=== PATIENT | male | born 1950 | race Asian ===

== ENCOUNTER 2025-02-16 15:08 | Inpatient (IN) | payer MEDICARE, SELFPAY ==
[2025-02-16] VITALS (38 sets, daily range): BP systolic 86–130; BP diastolic 52–78; BMI 22.3
--- NOTE | 2025-02-16 11:33 | ED.GENMED ---
History of Present Illness
<Brett Rush PA-C - Last Filed: 02/16/25 16:27>
General
Chief Complaint: Chest Pain
Time Seen by Provider: 02/16/25 11:15
History of Present Illness
History of Present Illness:
74-year-old male with history of hypertension, hyperlipidemia, and insulin-dependent diabetes presents to the emergency department for evaluation of substernal chest pressure that began last night after going for a run. Pain has not relented and
even worsened this morning. Not pleuritic and not necessarily worse with exertion today. No prior history of similar. Denies any fevers or chills.
Review of Systems
<Brett Rush PA-C - Last Filed: 02/16/25 16:27>
Review of Systems
Allergies reviewed?: Yes
All Other Systems: ROS reviewed and negative except as documented in HPI and ROS
Phy Exam
<Brett Rush PA-C - Last Filed: 02/16/25 16:27>
Physical Exam
Physical Exam:
GEN: Well appearing, NAD, WDWN
HEENT: Oral mucosa moist, no scleral icterus
Cardiac: Regular rate and rhythm, no murmur
Lung: No respiratory distress, no tachypnea
MSK: No gross deformity or injuries
Skin: Good color, no pallor or jaundice, no rashes
Neuro: AO x3, moves all extremities freely
Psych: Calm, cooperative
Scores
<Brett Rush PA-C - Last Filed: 02/16/25 16:27>
Heart Score for Chest Pain Patients
STEMI patient?: No
History: Highly Suspicious
ECG: Significant ST-Depression
Age: >/= 65 years
Risk Factors: >/= 3 Risk Factors or History of CAD
Troponin: >/= 3 x Normal Limit
Heart Score for Chest Pain Patients: 10
Heart Score Risk: 72.7 % MACE over next 6 weeks
Course
<Brett Rush PA-C - Last Filed: 02/16/25 16:27>
Orders/Labs/Results
Orders:
Orders
02/16/25 Breakfast
NPO
Allow oral meds: Yes
Allow clear liquids: No
02/16/25 09:50
EKG [Electrocardiogram (*1)] Urgent
Reason for Study: Chest Pain
EKG- Treatment ONCE
02/16/25 11:25
Electrocardiogram (*1) Urgent
Reason for Study: Chest Pain
EKG- Treatment ONCE
02/16/25 11:26
CR Chest Portable - 1 View Urgent
Comment:
Reason For Exam: chest pain
Reason Study Needs to be Portable: Other
02/16/25 11:30
Aspirin Chewable [Low Strength Aspirin] 324 mg PO NOW STA
02/16/25 11:35
Nitroglycerin Sublingual [Nitrostat (Sublingual)] 0.4 mg SL [id number] PRN
02/16/25 11:41
Heparin 4,000 units IV NOW STA
Pharmacy Request to Place See Dose Instructions PO NOW STA
Discontinue all Active Warfarin orders?: Yes
02/16/25 11:[address] Non Medication Order As Directed
Physician Order: PTT 6 hours after initial start of Heparin infusion
Above order entered?: Yes
02/16/25 11:43
Complete Blood Count/With Diff Urgent
Comprehensive Metabolic Panel Urgent
PTT Urgent
Comment: Obtain baseline before beginning heparin infusion if not already collected
Troponin I Urgent
02/16/25 11:45
Heparin 79092 Units/250 ml 25,000 units in 250 ml IV PER PROTOCOL
Weight to be used for heparin protocol in kilograms (kg):: 70.4
Protocol:: Cardiac Tx/Acute Coronary
PTT Goal Range to be used:: PTT 73 to 111 seconds
Order type:: Initial
INITIAL Infusion Dose (UNITS/KG/hr) & then follow protocol:: 12 units/kg/hr
Infusion Dose in UNITS/hr & then follow protocol (UNITS/hr):: 850
INFUSION RATE in mL/hr & then follow protocol (mL/hr):: 8.5
PTT less than or equal to 64 seconds:: Increase rate by 200 units/hr (+ 2 mL/hr)
PTT 64.1 to 72.9 seconds:: Increase rate by 100 units/hr (+ 1 mL/hr)
PTT 73 to 111 seconds:: Target Range. No change in rate.
PTT 111.1 to 130.9 seconds:: Decrease rate by 100 units/hr (- 1 mL/hr)
PTT 131 to 199.9 seconds:: HOLD for 1 hr. Then decrease rate by 200 units/hr (- 2 mL/hr)
PTT greater than or equal to 200 seconds:: HOLD for 2 hrs & Notify Provider. Then decrease by 200 units/hr (-
2 mL/hr)
Lab follow-up:: Each change, PTT q6h until 2 consecutive are therapeutic. Then PTT
daily.
02/16/25 12:[address] See Dose Instructions IV DIRECTED
02/16/25 12:31
CARDIOLOGY CONSULT Urgent
Consulting Provider: Joao Ross
Was physician already notified: Yes
Reason for consult: chest pain
02/16/25 12:35
Admit/Transfer Patient As Directed
Co-Sign Provider:
Level of Care: Inpatient admission
Assign to:: IVU
Physician / Group: jaison lane
Diagnosis: chest pain
Reason for Hospitalization: chest pain
Expected length of stay greater than two midnights?: Yes
ELOS- Estimated Length of Stay in days: 3
I certify the patient meets the requirements for IP care: Yes
02/16/25 12:36
PRN Pain Medication Management As Directed
May give lesser potent ordered pain med per pt: Yes
preference::
Protocol:: Medication orders for pain may be administered in a
manner that supports deferring to patient preference
when the pt is:
- Requesting an ordered lesser potent pain medication.
Least to most potent pain medications are defined
as: acetaminophen < NSAID < tramadol < opioids
(morphine, oxycodone, hydromorphone).
- Requesting a lesser dose of the same medication IF
ORDERED.
- Requesting a less intrusive route of administration
if both routes are prescribed by the provider (PO <
IV).
02/16/25 12:38
Code Status As Directed
Resuscitation Status: Full Code
02/16/25 13:10
Verapamil Injectable [Isoptin/Verapamil Injection] 5 mg .ROUTE .STK-MED ONE
02/16/25 13:11
Heparin 1000 Units/500 ml [Heparin] 1,000 units in 500 ml .ROUTE .STK-MED
Heparin Sodium,Porcine/Ns/Pf [Heparin 2000 Units/1000 ml] 2,000 unit in 1,000 ml .ROUTE .STK-MED
Lidocaine HCl/Pf [Xylocaine-Mpf 1% Vial] 50 mg .ROUTE .STK-MED ONE
Nitroglycerin [Tridil] 1,500 mcg .ROUTE .STK-MED ONE
02/16/25 13:38
Fentanyl Citrate/Pf [Sublimaze] 100 mcg .ROUTE .STK-MED ONE
Heparin 10,000 units .ROUTE .STK-MED ONE
Midazolam HCl [Versed] 2 mg .ROUTE .STK-MED ONE
02/16/25 14:29
Phenylephrine HCl/0.9% NaCl [Ayush-Synephrine] 1,000 mcg .ROUTE .STK-MED ONE
02/16/25 14:36
CT Chest W/o Iv Contrast Routine
Comment:
Reason For Exam: pre-operative cardiothoracic surgery
Nitroglycerin 100 mg/250 ml [Nitroglycerin Premix] 100 mg in 250 ml .ROUTE .STK-MED
Blood Pressure Bilateral Upper Extremities As Directed
Instructions:: If not already done obtain and record bilateral upper extremity bp.
Notify physician/PA/MANAGER THERAPY:: notify cardiac surgery PA, MANAGER THERAPY, or MD of a 20 mmHg or greater different.
Blood Pressure LEFT Upper Extremity ONCE
Blood Pressure RIGHT Upper Extremity ONCE
US Cerebrovascular Routine
Comment: surgery is scheduled on wednesday at 1130.
Reason For Exam: pre-operative cardiothoracic surgery
02/16/25 14:37
ANESTHESIA CONSULT Routine
Consulting Provider: Leif Sun
Consult for:: Other reason
Was physician already notified: Yes
Reason for consult: pending cardiothoracic surgery
02/16/25 14:49
Cardiothoracic Surgery Consult Routine
Consulting Provider: William Salter
Was physician already notified: Yes
Reason for Consult: CABG
Acetaminophen [Tylenol] 650 mg PO Q4HPRN PRN
Activity As Directed
Activity Level: Out of Bed- Ad Maite
Activity Frequency: Ad Maite
[employer] Procedure As Directed
Cardiac Cath Procedure: cardiac catheterization
Notify MD As Directed
Notify physician if: immediately for chest pain or bleeding from access site(s)
Site Checks As Directed
Check access site for bleeding/hematoma: Yes
Comment: on arrival, Q15min x4, Q30min x2, Q1 hr x2, Q2 hr x2, Q4 hr or per
protocol
Vascular Checks As Directed
Location: distal to access site - pulse check
Frequency: Other
Comment: on arrival, Q15min x4, Q30min x2, Q1 hr x2, Q2 hr x2, Q4 hr or per protocol
Vital Signs As Directed
Frequency: Other
Additional Instructions:: on arrival, Q15min x4, Q30min x2, Q1 hr x2, Q2 hr x2, then Q4 hr or per unit
protocol
02/16/25 14:59
Radial Artery Hemostasis Method As Directed
Instructions:: 3 mL out at 2 hour posts placement of band
3 mL out at 2 1/2 hours post placement of band
3 mL out at 3 hours post placement of band
Off at 3 1/2 hours post placement of band
If any oozing or hemotoma occurs:: re-inflate band and call provider
02/16/25 Dinner
Cholesterol Lowering
At Your Request: Full Participation
Does patient need a safe tray?: No
Cholesterol Lowering: Sodium, 2 Gram
0.9% Sodium Chloride 1000 ml [Nss] 1,000 ml IV PER PROTOCOL
Infusion rate in mL/kg/hr:: 1.5
Infusion rate in mL/hr:: 106
Duration of infusion (hours):: 3
Nitroglycerin 100 mg/250 ml [Nitroglycerin Premix] 100 mg in 250 ml IV PER PROTOCOL
Initial dose in mcg/min, then titrate:: 10
Titrate to keep:: Chest Pain Free
Titrate by mcg/min:: 5 mcg/min, may increase by 10 mcg/min if dose > 20 mcg/min
Frequency of titrations (minutes):: every 3-5 minutes
Maximum dose in mcg/min:: 200
Begin to taper infusion when:: Remained at goal for 2hrs
Taper by mcg/min:: 5 mcg/min
Frequency of taper (minutes) if patient maintains goal:: 30
Taper to off?: Yes
If infusion off & no longer maintaining goal:: Contact Provider
02/16/25 15:08
Electrocardiogram (*1) Q6H
Reason for Study: Chest Pain
Comment: at admission and Q3H for total of 3, to be done with each troponin
Troponin I Q3H
Comment: at admit & Q3H for 3 total including ED draws, obtain ECG with each level
Dextrose 50%-Water [Dextrose 50% Syringe] 12.5 grams IV [id number] PRN
Glucagon [GlucaGen] 1 mg IM PRN PRN
02/16/25 15:08
Glycohemoglobin (HgbA1c) Routine
Heparin Protocol- PTT Orders As Directed
PTT per Heparin protocol: -Obtain CBC and baseline PTT - if not already collected.
-Obtain PTT 6 hours from start of infusion. Then, every 6 hours until 2 consecutive
PTT's are therapeutic. Then, PTT Daily.
-With each rate change, obtain PTT every 6 hours until 2 consecutive PTT's are
therapeutic. Then, PTT Daily.
Activity As Directed
Activity Level: As Tolerated
Bedside Glucose Monitoring As Directed
Frequency: AC&HS
Additional Instructions:: Change to q6h if pt on TPN, tube feeding or not eating
INT (Intravenous Needle Therapy) As Directed
Comment: maintain peripheral IV access
Intake/ Output As Directed
Frequency: Per unit guidelines
Notify MD As Directed
Notify physician if: PTT is greater than or equal to 200.
Vital Signs As Directed
Frequency: q4h
Weight As Directed
Frequency: Daily
02/16/25 16:00
Heparin 72053 Units/250 ml 25,000 units in 250 ml IV PER PROTOCOL
Weight to be used for heparin protocol in kilograms (kg):: 70.4
Protocol:: Cardiac Tx/Acute Coronary
PTT Goal Range to be used:: PTT 73 to 111 seconds
Order type:: Continue/Resume
Maintain current infusion rate & then follow protocol:: Yes
Additional Instructions:: NO BOLUS at 1600
PTT less than or equal to 64 seconds:: Increase rate by 200 units/hr (+ 2 mL/hr)
PTT 64.1 to 72.9 seconds:: Increase rate by 100 units/hr (+ 1 mL/hr)
PTT 73 to 111 seconds:: Target Range. No change in rate.
PTT 111.1 to 130.9 seconds:: Decrease rate by 100 units/hr (- 1 mL/hr)
PTT 131 to 199.9 seconds:: HOLD for 1 hr. Then decrease rate by 200 units/hr (- 2 mL/hr)
PTT greater than or equal to 200 seconds:: HOLD for 2 hrs & Notify Provider. Then decrease by 200 units/hr (-
2 mL/hr)
Lab follow-up:: Each change, PTT q6h until 2 consecutive are therapeutic. Then PTT
daily.
icosapent ethyl [Vascepa] 1 grams PO TID
02/16/25 16:30
Insulin Aspart Corrective Low [Novolog Flexpen-Low Resistance] See Protocol SC AC
02/16/25 18:00
Rosuvastatin Calcium [Crestor] 20 mg PO QPM
02/16/25 18:08
Troponin I Q3H
Comment: at admit & Q3H for 3 total including ED draws, obtain ECG with each level
02/16/25 20:00
Docusate W/Senna [Senokot-S] 1 tablet PO BID
cycloSPORINE [Restasis 0.05% Ophthalmic Emulsion] 1 drops BOTH EYES BID
02/16/25 21:08
Electrocardiogram (*1) Q6H
Reason for Study: Chest Pain
Comment: at admission and Q3H for total of 3, to be done with each troponin
02/16/25 22:00
insulin glargine U-300 conc [Toujeo SoloStar U-300 Insulin] 20 unit SC HS
02/17/25 03:08
Electrocardiogram (*1) Q6H
Reason for Study: Chest Pain
Comment: at admission and Q3H for total of 3, to be done with each troponin
02/17/25 06:00
Basic Metabolic Panel IN AM
Cardiovascular Evaluation IN AM
Complete Blood Count/No Diff IN AM
Glycohemoglobin (HgbA1c) IN AM
Glycohemoglobin (HgbA1c) IN AM
Qezky-Ikwr-Eipoitz IN AM
PTT IN AM
Prothrombin Time IN AM
02/17/25 08:00
Aspirin Chewable [Low Strength Aspirin] 81 mg PO DAILY
Duloxetine Delayed Release [Cymbalta Delayed Release] 30 mg PO DAILY
Famotidine [Pepcid] 20 mg PO DAILY
Ferrous Sulfate [Feosol] 325 mg PO DAILY
Magnesium l-Lactate [Mag-Tab Sr] 84 mg PO DAILY
Pantoprazole [Protonix] 40 mg PO DAILY
finasteride 1 mg PO DAILY
02/18/25 06:00
Type+Screen IN AM
Complete Blood Count/No Diff Q2D
Comment: notify provider: Platelet count < 130,000 or decrease by 50% from baseline
02/20/25 06:00
Complete Blood Count/No Diff Q2D
Comment: notify provider: Platelet count < 130,000 or decrease by 50% from baseline
02/22/25 06:00
Complete Blood Count/No Diff Q2D
Comment: notify provider: Platelet count < 130,000 or decrease by 50% from baseline
02/24/25 06:00
Complete Blood Count/No Diff Q2D
Comment: notify provider: Platelet count < 130,000 or decrease by 50% from baseline
02/26/25 06:00
Complete Blood Count/No Diff Q2D
Comment: notify provider: Platelet count < 130,000 or decrease by 50% from baseline
02/28/25 06:00
Complete Blood Count/No Diff Q2D
Comment: notify provider: Platelet count < 130,000 or decrease by 50% from baseline
03/02/25 06:00
Complete Blood Count/No Diff Q2D
Comment: notify provider: Platelet count < 130,000 or decrease by 50% from baseline
03/04/25 06:00
Complete Blood Count/No Diff Q2D
Comment: notify provider: Platelet count < 130,000 or decrease by 50% from baseline
Abnormal Lab Results
02/16/25
11:43
RBC 3.88 L 10^6/uL
(4.70-6.10)
Hgb 12.4 L g/dL
(13.0-18.0)
Hct 36.0 L %
(39.0-52.0)
MCH 32.0 H pg
(27.0-31.0)
Absolute Neuts (auto) 6.7 H 10^3/uL
(1.4-6.5)
Absolute Lymphs (auto) 0.7 L 10^3/uL
(1.2-3.4)
Neutrophils % 86.0 H %
(42.2-75.2)
Lymphocytes % 9.3 L %
(20.5-51.1)
Creatinine 0.6 L mg/dL
(0.7-1.3)
Glucose 162 H mg/dl
(70-99)
Alkaline Phosphatase 35 L U/L
(38-126)
Troponin I 0.600 H* ng/ml
02/16/25 11:43
02/16/25 11:43
Vital Signs
Initial and Last Documented VS:
Initial Vital Signs
Temp Pulse Resp BP Pulse Ox
97.7 F 55 20 117/56 99
02/16/25 09:59 02/16/25 09:59 02/16/25 09:59 02/16/25 09:59 02/16/25 09:59
Last Documented Vital Signs
Temp Pulse Resp BP Pulse Ox
97.9 F 62 16 109/65 100
02/16/25 15:19 02/16/25 13:00 02/16/25 15:19 02/16/25 13:00 02/16/25 15:19
<Philip Calvillo, DO - Last Filed: 02/16/25 11:54>
Orders/Labs/Results
Orders:
Orders
02/16/25 Breakfast
NPO
Allow oral meds: Yes
Allow clear liquids: No
02/16/25 09:50
EKG [Electrocardiogram (*1)] Urgent
Reason for Study: Chest Pain
EKG- Treatment ONCE
02/16/25 11:25
Electrocardiogram (*1) Urgent
Reason for Study: Chest Pain
EKG- Treatment ONCE
02/16/25 11:26
CR Chest Portable - 1 View Urgent
Comment:
Reason For Exam: chest pain
Reason Study Needs to be Portable: Other
02/16/25 11:30
Aspirin Chewable [Low Strength Aspirin] 324 mg PO NOW STA
02/16/25 11:35
Nitroglycerin Sublingual [Nitrostat (Sublingual)] 0.4 mg SL [id number] PRN
02/16/25 11:41
Heparin 4,000 units IV NOW STA
Pharmacy Request to Place See Dose Instructions PO NOW STA
Discontinue all Active Warfarin orders?: Yes
02/16/25 11:[address] Non Medication Order As Directed
Physician Order: PTT 6 hours after initial start of Heparin infusion
Above order entered?: Yes
02/16/25 11:43
Complete Blood Count/With Diff Urgent
Comprehensive Metabolic Panel Urgent
PTT Urgent
Comment: Obtain baseline before beginning heparin infusion if not already collected
Troponin I Urgent
02/16/25 11:45
Heparin 73826 Units/250 ml 25,000 units in 250 ml IV PER PROTOCOL
Weight to be used for heparin protocol in kilograms (kg):: 70.4
Protocol:: Cardiac Tx/Acute Coronary
PTT Goal Range to be used:: PTT 73 to 111 seconds
Order type:: Initial
INITIAL Infusion Dose (UNITS/KG/hr) & then follow protocol:: 12 units/kg/hr
Infusion Dose in UNITS/hr & then follow protocol (UNITS/hr):: 850
INFUSION RATE in mL/hr & then follow protocol (mL/hr):: 8.5
PTT less than or equal to 64 seconds:: Increase rate by 200 units/hr (+ 2 mL/hr)
PTT 64.1 to 72.9 seconds:: Increase rate by 100 units/hr (+ 1 mL/hr)
PTT 73 to 111 seconds:: Target Range. No change in rate.
PTT 111.1 to 130.9 seconds:: Decrease rate by 100 units/hr (- 1 mL/hr)
PTT 131 to 199.9 seconds:: HOLD for 1 hr. Then decrease rate by 200 units/hr (- 2 mL/hr)
PTT greater than or equal to 200 seconds:: HOLD for 2 hrs & Notify Provider. Then decrease by 200 units/hr (-
2 mL/hr)
Lab follow-up:: Each change, PTT q6h until 2 consecutive are therapeutic. Then PTT
daily.
02/16/25 12:[address] See Dose Instructions IV DIRECTED
02/16/25 12:31
CARDIOLOGY CONSULT Urgent
Consulting Provider: Joao Ross
Was physician already notified: Yes
Reason for consult: chest pain
02/16/25 12:35
Admit/Transfer Patient As Directed
Co-Sign Provider:
Level of Care: Inpatient admission
Assign to:: IVU
Physician / Group: jaison lane
Diagnosis: chest pain
Reason for Hospitalization: chest pain
Expected length of stay greater than two midnights?: Yes
ELOS- Estimated Length of Stay in days: 3
I certify the patient meets the requirements for IP care: Yes
02/16/25 12:36
PRN Pain Medication Management As Directed
May give lesser potent ordered pain med per pt: Yes
preference::
Protocol:: Medication orders for pain may be administered in a
manner that supports deferring to patient preference
when the pt is:
- Requesting an ordered lesser potent pain medication.
Least to most potent pain medications are defined
as: acetaminophen < NSAID < tramadol < opioids
(morphine, oxycodone, hydromorphone).
- Requesting a lesser dose of the same medication IF
ORDERED.
- Requesting a less intrusive route of administration
if both routes are prescribed by the provider (PO <
IV).
02/16/25 12:38
Code Status As Directed
Resuscitation Status: Full Code
02/16/25 13:10
Verapamil Injectable [Isoptin/Verapamil Injection] 5 mg .ROUTE .STK-MED ONE
02/16/25 13:11
Heparin 1000 Units/500 ml [Heparin] 1,000 units in 500 ml .ROUTE .STK-MED
Heparin Sodium,Porcine/Ns/Pf [Heparin 2000 Units/1000 ml] 2,000 unit in 1,000 ml .ROUTE .STK-MED
Lidocaine HCl/Pf [Xylocaine-Mpf 1% Vial] 50 mg .ROUTE .STK-MED ONE
Nitroglycerin [Tridil] 1,500 mcg .ROUTE .STK-MED ONE
02/16/25 13:38
Fentanyl Citrate/Pf [Sublimaze] 100 mcg .ROUTE .STK-MED ONE
Heparin 10,000 units .ROUTE .STK-MED ONE
Midazolam HCl [Versed] 2 mg .ROUTE .STK-MED ONE
02/16/25 14:29
Phenylephrine HCl/0.9% NaCl [Ayush-Synephrine] 1,000 mcg .ROUTE .STK-MED ONE
02/16/25 14:36
CT Chest W/o Iv Contrast Routine
Comment:
Reason For Exam: pre-operative cardiothoracic surgery
Nitroglycerin 100 mg/250 ml [Nitroglycerin Premix] 100 mg in 250 ml .ROUTE .STK-MED
Blood Pressure Bilateral Upper Extremities As Directed
Instructions:: If not already done obtain and record bilateral upper extremity bp.
Notify physician/PA/MANAGER THERAPY:: notify cardiac surgery PA, MANAGER THERAPY, or MD of a 20 mmHg or greater different.
Blood Pressure LEFT Upper Extremity ONCE
Blood Pressure RIGHT Upper Extremity ONCE
US Cerebrovascular Routine
Comment: surgery is scheduled on wednesday at 1130.
Reason For Exam: pre-operative cardiothoracic surgery
02/16/25 14:37
ANESTHESIA CONSULT Routine
Consulting Provider: Leif Sun
Consult for:: Other reason
Was physician already notified: Yes
Reason for consult: pending cardiothoracic surgery
02/16/25 14:49
Cardiothoracic Surgery Consult Routine
Consulting Provider: William Salter
Was physician already notified: Yes
Reason for Consult: CABG
Acetaminophen [Tylenol] 650 mg PO Q4HPRN PRN
Activity As Directed
Activity Level: Out of Bed- Ad Maite
Activity Frequency: Ad Maite
[employer] Procedure As Directed
Cardiac Cath Procedure: cardiac catheterization
Notify MD As Directed
Notify physician if: immediately for chest pain or bleeding from access site(s)
Site Checks As Directed
Check access site for bleeding/hematoma: Yes
Comment: on arrival, Q15min x4, Q30min x2, Q1 hr x2, Q2 hr x2, Q4 hr or per
protocol
Vascular Checks As Directed
Location: distal to access site - pulse check
Frequency: Other
Comment: on arrival, Q15min x4, Q30min x2, Q1 hr x2, Q2 hr x2, Q4 hr or per protocol
Vital Signs As Directed
Frequency: Other
Additional Instructions:: on arrival, Q15min x4, Q30min x2, Q1 hr x2, Q2 hr x2, then Q4 hr or per unit
protocol
02/16/25 14:59
Radial Artery Hemostasis Method As Directed
Instructions:: 3 mL out at 2 hour posts placement of band
3 mL out at 2 1/2 hours post placement of band
3 mL out at 3 hours post placement of band
Off at 3 1/2 hours post placement of band
If any oozing or hemotoma occurs:: re-inflate band and call provider
02/16/25 Dinner
Cholesterol Lowering
At Your Request: Full Participation
Does patient need a safe tray?: No
Cholesterol Lowering: Sodium, 2 Gram
0.9% Sodium Chloride 1000 ml [Nss] 1,000 ml IV PER PROTOCOL
Infusion rate in mL/kg/hr:: 1.5
Infusion rate in mL/hr:: 106
Duration of infusion (hours):: 3
Nitroglycerin 100 mg/250 ml [Nitroglycerin Premix] 100 mg in 250 ml IV PER PROTOCOL
Initial dose in mcg/min, then titrate:: 10
Titrate to keep:: Chest Pain Free
Titrate by mcg/min:: 5 mcg/min, may increase by 10 mcg/min if dose > 20 mcg/min
Frequency of titrations (minutes):: every 3-5 minutes
Maximum dose in mcg/min:: 200
Begin to taper infusion when:: Remained at goal for 2hrs
Taper by mcg/min:: 5 mcg/min
Frequency of taper (minutes) if patient maintains goal:: 30
Taper to off?: Yes
If infusion off & no longer maintaining goal:: Contact Provider
02/16/25 15:08
Electrocardiogram (*1) Q6H
Reason for Study: Chest Pain
Comment: at admission and Q3H for total of 3, to be done with each troponin
Troponin I Q3H
Comment: at admit & Q3H for 3 total including ED draws, obtain ECG with each level
Dextrose 50%-Water [Dextrose 50% Syringe] 12.5 grams IV [id number] PRN
Glucagon [GlucaGen] 1 mg IM PRN PRN
02/16/25 15:08
Glycohemoglobin (HgbA1c) Routine
Heparin Protocol- PTT Orders As Directed
PTT per Heparin protocol: -Obtain CBC and baseline PTT - if not already collected.
-Obtain PTT 6 hours from start of infusion. Then, every 6 hours until 2 consecutive
PTT's are therapeutic. Then, PTT Daily.
-With each rate change, obtain PTT every 6 hours until 2 consecutive PTT's are
therapeutic. Then, PTT Daily.
Activity As Directed
Activity Level: As Tolerated
Bedside Glucose Monitoring As Directed
Frequency: AC&HS
Additional Instructions:: Change to q6h if pt on TPN, tube feeding or not eating
INT (Intravenous Needle Therapy) As Directed
Comment: maintain peripheral IV access
Intake/ Output As Directed
Frequency: Per unit guidelines
Notify MD As Directed
Notify physician if: PTT is greater than or equal to 200.
Vital Signs As Directed
Frequency: q4h
Weight As Directed
Frequency: Daily
02/16/25 16:00
Heparin 83190 Units/250 ml 25,000 units in 250 ml IV PER PROTOCOL
Weight to be used for heparin protocol in kilograms (kg):: 70.4
Protocol:: Cardiac Tx/Acute Coronary
PTT Goal Range to be used:: PTT 73 to 111 seconds
Order type:: Continue/Resume
Maintain current infusion rate & then follow protocol:: Yes
Additional Instructions:: NO BOLUS at 1600
PTT less than or equal to 64 seconds:: Increase rate by 200 units/hr (+ 2 mL/hr)
PTT 64.1 to 72.9 seconds:: Increase rate by 100 units/hr (+ 1 mL/hr)
PTT 73 to 111 seconds:: Target Range. No change in rate.
PTT 111.1 to 130.9 seconds:: Decrease rate by 100 units/hr (- 1 mL/hr)
PTT 131 to 199.9 seconds:: HOLD for 1 hr. Then decrease rate by 200 units/hr (- 2 mL/hr)
PTT greater than or equal to 200 seconds:: HOLD for 2 hrs & Notify Provider. Then decrease by 200 units/hr (-
2 mL/hr)
Lab follow-up:: Each change, PTT q6h until 2 consecutive are therapeutic. Then PTT
daily.
icosapent ethyl [Vascepa] 1 grams PO TID
02/16/25 16:30
Insulin Aspart Corrective Low [Novolog Flexpen-Low Resistance] See Protocol SC AC
02/16/25 18:00
Rosuvastatin Calcium [Crestor] 20 mg PO QPM
02/16/25 18:08
Troponin I Q3H
Comment: at admit & Q3H for 3 total including ED draws, obtain ECG with each level
02/16/25 20:00
Docusate W/Senna [Senokot-S] 1 tablet PO BID
cycloSPORINE [Restasis 0.05% Ophthalmic Emulsion] 1 drops BOTH EYES BID
02/16/25 21:08
Electrocardiogram (*1) Q6H
Reason for Study: Chest Pain
Comment: at admission and Q3H for total of 3, to be done with each troponin
02/16/25 22:00
insulin glargine U-300 conc [Toujeo SoloStar U-300 Insulin] 20 unit SC HS
02/17/25 03:08
Electrocardiogram (*1) Q6H
Reason for Study: Chest Pain
Comment: at admission and Q3H for total of 3, to be done with each troponin
02/17/25 06:00
Basic Metabolic Panel IN AM
Cardiovascular Evaluation IN AM
Complete Blood Count/No Diff IN AM
Glycohemoglobin (HgbA1c) IN AM
Glycohemoglobin (HgbA1c) IN AM
Wnxqn-Dxjh-Qxjkuoz IN AM
PTT IN AM
Prothrombin Time IN AM
02/17/25 08:00
Aspirin Chewable [Low Strength Aspirin] 81 mg PO DAILY
Duloxetine Delayed Release [Cymbalta Delayed Release] 30 mg PO DAILY
Famotidine [Pepcid] 20 mg PO DAILY
Ferrous Sulfate [Feosol] 325 mg PO DAILY
Magnesium l-Lactate [Mag-Tab Sr] 84 mg PO DAILY
Pantoprazole [Protonix] 40 mg PO DAILY
finasteride 1 mg PO DAILY
02/18/25 06:00
Type+Screen IN AM
Complete Blood Count/No Diff Q2D
Comment: notify provider: Platelet count < 130,000 or decrease by 50% from baseline
02/20/25 06:00
Complete Blood Count/No Diff Q2D
Comment: notify provider: Platelet count < 130,000 or decrease by 50% from baseline
02/22/25 06:00
Complete Blood Count/No Diff Q2D
Comment: notify provider: Platelet count < 130,000 or decrease by 50% from baseline
02/24/25 06:00
Complete Blood Count/No Diff Q2D
Comment: notify provider: Platelet count < 130,000 or decrease by 50% from baseline
02/26/25 06:00
Complete Blood Count/No Diff Q2D
Comment: notify provider: Platelet count < 130,000 or decrease by 50% from baseline
02/28/25 06:00
Complete Blood Count/No Diff Q2D
Comment: notify provider: Platelet count < 130,000 or decrease by 50% from baseline
03/02/25 06:00
Complete Blood Count/No Diff Q2D
Comment: notify provider: Platelet count < 130,000 or decrease by 50% from baseline
03/04/25 06:00
Complete Blood Count/No Diff Q2D
Comment: notify provider: Platelet count < 130,000 or decrease by 50% from baseline
Abnormal Lab Results
02/16/25
11:43
RBC 3.88 L 10^6/uL
(4.70-6.10)
Hgb 12.4 L g/dL
(13.0-18.0)
Hct 36.0 L %
(39.0-52.0)
MCH 32.0 H pg
(27.0-31.0)
Absolute Neuts (auto) 6.7 H 10^3/uL
(1.4-6.5)
Absolute Lymphs (auto) 0.7 L 10^3/uL
(1.2-3.4)
Neutrophils % 86.0 H %
(42.2-75.2)
Lymphocytes % 9.3 L %
(20.5-51.1)
Creatinine 0.6 L mg/dL
(0.7-1.3)
Glucose 162 H mg/dl
(70-99)
Alkaline Phosphatase 35 L U/L
(38-126)
Troponin I 0.600 H* ng/ml
02/16/25 11:43
02/16/25 11:43
Vital Signs
Initial and Last Documented VS:
Initial Vital Signs
Temp Pulse Resp BP Pulse Ox
97.7 F 55 20 117/56 99
02/16/25 09:59 02/16/25 09:59 02/16/25 09:59 02/16/25 09:59 02/16/25 09:59
Last Documented Vital Signs
Temp Pulse Resp BP Pulse Ox
97.9 F 62 16 109/65 100
02/16/25 15:19 02/16/25 13:00 02/16/25 15:19 02/16/25 13:00 02/16/25 15:19
<Brett Rush PA-C - Last Filed: 02/16/25 16:27>
MDM/Problems Addressed
MDM/Problems Addressed:
Repeat EKG upon arrival to the exam room revealed anterior septal changes compared to initial EKG, these findings were reviewed with cardio invasive Dr. Hernandes who feels it does not represent STEMI criteria at this time. Patient be treated as an
NSTEMI with aspirin and nitroglycerin, did have resolution of symptoms after 3 doses of sublingual nitro. Will be admitted to the hospitalist service, cardiology consulting with plan for catheterization later today
<Brett Rush PA-C - Last Filed: 02/16/25 16:27>
*Critical Care Note
Total Time (30-74mins, 75-104mins- exclusive of procedures): 30 minutes
comment:
Critical care time: 30 minutes
Critical care time was exclusive of: Separately billable procedures, treating other patients, and teaching time
Critical care was necessary to treat or prevent imminent or life-threatening deterioration of the following conditions: NSTEMI
Critical care time spent personally by me on the following activities:
[x] Review of old charts
[x] Obtaining history from patient or surrogate
[x] Ordering and review of the laboratory studies
[x] Ordering and review of radiographic studies
[x] Ordering and performing treatments and interventions
[x] Patient patient's response to treatment
[x] Development of treatment plan with patient or surrogate
ED Attending Note
<Brett Rush PA-C - Last Filed: 02/16/25 16:27>
-
Portions of this chart may have been created with voice recognition software.� Occasional wrong word or��sound alike� substitutions may have occurred due to the inherent limitations of voice recognition software.
<Philip Calvillo DO - Last Filed: 02/16/25 11:54>
ED Attending Note
Patient seen and examined by attending physician: Yes
I performed the substantive portion of visit, reviewed & personally made and approve the management plan that is documented in note by myself or AUBRIE.: Yes
ED Attending Note:
I have seen and evaluated the patient with a [id number] encounter. I have spoken to the advance practicer provider and involved in the medical history, the physical exam, medical decision making.
Evaluation and management service: agree unless noted differently below.
Results interpretation: agree unless noted differently below.
Focused HPI: 74-year-old male presenting for exertional chest pain. Son at bedside denies prior cardiac history
Physical exam: Sitting bed comfortably. No acute distress. Heart regular rate and rhythm
Medical Decision Making: Initial EKG showed nonspecific changes. Given the ongoing symptoms, repeat EKG showed changes in V1, V2 and V3. Given the ongoing symptoms, patient given nitroglycerin. Cardiology made aware. Will start heparin and
likely perform cardiac catheterization today
Discharge Plan
Departure
Patient Disposition: Admit
Date of Disposition: 02/16/25
Time of Disposition: 12:23
Admit to: IVU
Presentation/result/management discussed w/ accepting MD/DO: Hospitalist
Discharge Problem:
Acute non-ST elevation myocardial infarction (NSTEMI)
Interventions
Interventions:
*Risk Screen - Suicide Last Done: 02/16/25 12:02
*General Assessment Last Done: 02/16/25 12:02
*Neglect/Abuse Screening Last Done: 02/16/25 12:02
*ED- Fall Risk Assessment Last Done: 02/16/25 12:02
*ED COVID-19 Vaccine History Last Done: 02/16/25 12:02
*Nursing Disposition Last Done: 02/16/25 13:20
ED- Cardiac Assessment Last Done: 02/16/25 12:05
Discharge Date and Time
Discharge Date/Time: 02/16/25 13:20
[2025-02-16] MEDS: LOW STRENGTH ASPIRIN 324 MG PO (11:34)
[2025-02-16] MEDS: NITROSTAT (SUBLINGUAL) 0.4 MG SL ×3 (11:40→11:51)
[2025-02-16 11:50] LABS: % Basophils 0.1 % (0-2); % Eosinophils 0.1 % (0-6); % Immature Granulocytes 0.3 % (0-0.5); % Lymphocytes 9.3 % (20.5-51.1); % Monocytes 4.2 % (1.7-9.3); Absolute Lymphocytes 0.7 10^3/uL (1.2-3.4); Absolute Monocytes 0.3 10^3/uL (0.1-0.6); Absolute Neutrophils 6.7 10^3/uL (1.4-6.5); Hemoglobin 12.4 g/dL (13.0-18.0); Mean Corp Hgb Conc. 34.4 g/dL (33.0-37.0); Mean Corpuscular Volume 92.8 fL (80.0-94.0); Mean Platelet Volume 8.6 fL (7.4-10.4); Nucleated Red Blood Cells % 0 % (-); Platelet Count 195 10^3/uL (130-400); Red Blood Cell Count 3.88 10^6/uL (4.70-6.10); Red Cell Dist. Width 11.8 % (11.5-14.5); White Blood Cell Count 7.8 10^3/uL (4.8-10.8)
[2025-02-16] MEDS: HEPARIN 4000 UNITS IV (11:54)
--- NOTE | 2025-02-16 11:54 | CON.CAR ---
Addendum entered and electronically signed by Joao Ross MD 02/16/25 13:52:
I saw and examined the patient.
The Lines Tender's note was reviewed and I agree with the note.
Comment: Briefly, 74-year-old man past medical history of hypertension, hyperlipidemia and insulin-dependent diabetes who developed chest discomfort last evening which has persisted into this morning and therefore he presented to [facility]
emergency department for evaluation. It sounds like he was out for a walk last evening when the chest pressure came on.
With concern for ACS patient was treated with aspirin, sublingual nitro and heparin drip
Chest pain resolved following sublingual nitro and at the time of my evaluation he was resting comfortably chest pain-free
ECG showed nonspecific ST changes
Initial troponin elevated at 0.6 consistent with NSTEMI - would trend to peak
Check echo
Continue aspirin/statin/heparin drip and add beta-aurora as HR/BP allows
Tentative plan for left heart catheterization later today
Case discussed with son at bedside as well as interventional cardiology
Original Note:
Consultation
Consultation Request
Date/Time Consultation Requested: 02/16/2025 1150
Date/Time Consultation Performed: 02/16/2025 1155
Performing Provider: MADELIN Zavaleta for Dr Ross
Reason for Consultation: chest pain
Medical History
-
Chief Complaint: Chest pain since last night
History of Present Illness:
74-year-old male presents to ED for substernal chest pressure and shortness of breath since last night. Patient is Turkish speaking and history is obtained from his son who is at bedside. Past medical history hypertension, hyperlipidemia, type 2
diabetes on insulin. Son reports pts sugars have been higher and he has been trying to increase his physical activity. Last night on his nightly walk he ran for part of it. When he returned home he developed chest pressure. Went to bed and slept
through the night. When he woke up still had 4-5 out of 10 chest pressure and came to ED. Pressure does not radiate. He feels mildly short of breath. No diaphoresis, nausea, palpitations, lightheadedness. In ED EKG normal sinus rhythm with
nonspecific ST abnormality. Patient has received 3 sublingual nitroglycerin with relief of pain. Received 4 baby aspirin and started on heparin drip.
First troponin back at 0.6.
Past medical history:
Hypertension
Hyperlipidemia
Type 2 diabetes
No known prior history of CAD
Past Medical History
Past Medical History: Other (As above)
Past Surgical History: Other (Bilateral inguinal hernia repair)
Social History
Tobacco: Non-Smoker
Alcohol: None
Drug: None
Family History
Family History: Reviewed & Not Pertinent
Allergies / Home Medications
Allergy/AdvReac Type Severity Reaction Status Date / Time
No Known Allergies Allergy Unverified 02/16/25 10:05
Review of Systems
-
History Source: Family
All other systems: Negative unless noted
Physical Exam
Vital Signs
Temp Pulse Resp BP Pulse Ox
97.7 F 55 20 109/77 99
02/16/25 09:59 02/16/25 09:59 02/16/25 09:59 02/16/25 11:51 02/16/25 09:59
Lab Results
02/16/25 11:43
GEN: No distress, awake, Ox3
HEENT: supple, anicteric, mmm
LUNGS: CTA, no wheezes/rales
CV: Reg, S1/S2, no murmur
ABD: soft, BS+, NT/ND
EXT: No edema
NEURO: Gross non-focal
SKIN: No rash
Impression / Plan
-
PCP:Evan Greenfield
does not see auto technician
Previous cardiovascular testing: None known
Impression:
Chest pain/pressure
Elevated troponin
EKG with nonspecific ST abnormality
Diabetes mellitus on insulin
Hypertension
Hyperlipidemia
Plan:
74-year-old male presents to ED for substernal chest pressure and shortness of breath since last night. Patient is Turkish speaking and history is obtained from his son who is at bedside. Past medical history hypertension, hyperlipidemia, type 2
diabetes on insulin. Son reports pts sugars have been higher and he has been trying to increase his physical activity. Last night on his nightly walk he ran for part of it. When he returned home he developed chest pressure. Went to bed and slept
through the night. When he woke up still had 4-5 out of 10 chest pressure and came to ED. Pressure does not radiate. He feels mildly short of breath. No diaphoresis, nausea, palpitations, lightheadedness. In ED EKG normal sinus rhythm with
nonspecific ST abnormality. Patient has received 3 sublingual nitroglycerin with relief of pain. Received 4 baby aspirin and started on heparin drip.
First troponin back at 0.6.
Chest pain
-EKG sinus bradycardia with nonspecific ST abnormality
- Concern for non-ST elevation UT in setting of elevated troponin, abnormal EKG and symptoms
- Currently chest pain-free after 3 sublingual nitroglycerin
- Status post aspirin load and continue daily baby aspirin
- Heparin drip started
- Trend troponin and EKGs
- Continue statin
- N.p.o. for cath today, on Counseling Program Leader schedule
History of hypertension
- BP currently controlled
- Son believes he was on antihypertensive therapy in past,he is obtaining med list
- Ideally would like to start beta-aurora
History of hyperlipidemia
- Goal LDL less than 55 in setting of diabetes mellitus
- Patient currently on rosuvastatin and Vascepa, continue.
- Check FLP
Discussed with son at bedside
Data Reviewed
-
EKG: Tracing Personally Visualized and interpreted
Labs: Labs Reviewed by me
[2025-02-16] MEDS: HEPARIN 25000 UNITS/250 ML IV ×2 (11:56→18:31)
[2025-02-16 12:01] LABS: APTT 31.7 Sec (23.4-35.0)
[2025-02-16 12:02] LABS: ALT (SGPT) 34 U/L (0-50); AST (SGOT) 42 U/L (17-59); Albumin 4.6 g/dl (3.5-5.0); Alkaline Phosphatase 35 U/L (38-126); Blood Urea Nitrogen 20 mg/dl (9-20); Carbon Dioxide 28 mmol/L (22-30); Chloride 102 mmol/L (98-107); Estimated Creatinine Clearance 109 ml/min; Glucose 162 mg/dl (70-99); Potassium 4.6 mmol/L (3.5-5.1); Sodium 141 mmol/L (135-145); Total Bilirubin 0.8 mg/dl (0.2-1.3); Total Protein 6.8 g/dl (6.3-8.2); eGFR > 60.00
--- NOTE | 2025-02-16 12:08 | EDRN ---
Savanah MUSIC ADAPTER w/ cardiology in room w/pt at this time.
--- NOTE | 2025-02-16 12:20 | EDRN ---
Carri Quintero WHEEL ALIGNMENT TECHNICIAN in room w/ tp for hospitalist group.
--- NOTE | 2025-02-16 12:22 | HPS.HSE ---
Family Physician
-
Family Physician: Evan Greenfield
Chief Complaint
-
ches pressure.
History of Present Illness
74-year-old male with history of hypertension, hyperlipidemia, and insulin-dependent diabetes presents to the emergency department for evaluation of substernal chest pressure that began last night after going for a run Pain has not relented and
even worsened this morning. patient stated the pain is non radiating and non exertional. denied sob. denied CAMACHO, dizzy or syncope.denied fever, chills, congestion, cough.denied abdominal pain,n,v,d. denied dysuria or hematuria.
patient received asa, heparin , nitro in ER. plan for cath today.admitting for further management.
Medical History
Past Medical History
Past Medical History: Reports Other
Additional Past Medical History:
HTN
HLD
DM
Past Surgical History: Reports Other
Additional Past Surgical History:
hernia surgery
Social History
Tobacco: Non-smoker
Alcohol: None
Drug: None
Living: With Family
Family History
Family History: Not pertinent
Allergies / Home Medications
Allergies reflects when Allergies were last updated in [employer].
Home Medications with original date entered in [employer]
Allergy/Medication List:
Allergies
Allergy/AdvReac Type Severity Reaction Status Date / Time
No Known Allergies Allergy Unverified 02/16/25 10:05
Home Medications
cyclosporine 0.05 % eye drops in a dropperette (Restasis) 1 drp BOTH EYES BID 02/16/25
duloxetine 30 mg capsule,delayed release 30 mg PO DAILY 02/16/25
famotidine 20 mg tablet 20 mg PO HS 02/16/25
ferrous sulfate 325 mg (65 mg iron) tablet,delayed release 325 mg PO DAILY 02/16/25
glipizide 10 mg tablet 10 mg PO BID 02/16/25
icosapent ethyl 1 gram capsule (Vascepa) 1 g PO TID 02/16/25
insulin glargine U-300 conc 300 unit/mL (1.5 mL) subcutaneous pen (Toujeo SoloStar U-300 Insulin) 0 unit SC HS 02/16/25
lidocaine 4 % topical patch 1 patch topical DAILY 02/16/25
magnesium oxide 400 mg (241.3 mg magnesium) tablet 400 mg PO DAILY 02/16/25
metformin 850 mg tablet 850 mg PO BID 02/16/25
omeprazole 20 mg capsule,delayed release 20 mg PO DAILY 02/16/25
rosuvastatin 20 mg tablet 20 mg PO QPM 02/16/25
semaglutide 0.25 mg or 0.5 mg (2 mg/3 mL) subcutaneous pen injector (Ozempic) 2 mg SC WEEKLY 02/16/25
sennosides 8.6 mg-docusate sodium 50 mg tablet (Senna Plus) 1 tab PO BID 02/16/25
Review of Systems
-
Constitutional: Reports No Symptoms
EENT: Reports No Symptoms
Respiratory: Reports No Symptoms
Cardiac: Reports Chest Pain
Abdomen/GI: Reports No Symptoms
: Reports No Symptoms
Musculoskeletal: Reports No Symptoms
Skin: Reports No Symptoms
Neurological: Reports No Symptoms
Endocrine: Reports No Symptoms
Hematologic/Lymphatic: Reports No Symptoms
Psych: Reports No Symptoms
Physical Exam
Vital Signs
Vital Signs
Temp Pulse Resp BP Pulse Ox
97.7 F 64 13 100/63 96
02/16/25 09:59 02/16/25 12:00 02/16/25 12:00 02/16/25 12:00 02/16/25 12:00
Physical Exam
General: Well Developed, Well Nourished and No Apparent Distress
HEENT: NormoCephalic, Moist mucous membranes and Atraumatic
Respiratory: Clear
Cardiac: S1/S2 and Regular Rhythm; No Murmur or Rub
GI: Soft, Non Tender, Non Distended and Normal Bowel Sounds; No Organomegaly
Rectal: Deferred by Provider
Musculoskeletal: No Clubbing, No Cyanosis and No Edema
Skin: No Rash
Neuro: AO x 3 and Nonfocal/grossly intact
Psych: Calm
Laboratory Results
-
02/16/25 11:43
02/16/25 11:43
Laboratory Results
APTT 31.7 Sec (23.4-35.0) 02/16/25 11:43
Total Bilirubin 0.8 mg/dl (0.2-1.3) 02/16/25 11:43
AST 42 U/L (17-59) 02/16/25 11:43
ALT 34 U/L (0-50) 02/16/25 11:43
Alkaline Phosphatase 35 U/L (38-126) L 02/16/25 11:43
Troponin I 0.600 ng/ml H* 02/16/25 11:43
Data Reviewed
-
Diagnostic Radiology: Report Reviewed by me
Lab Data: Labs Reviewed by me
Impression/Plan
-
#NSTEMI
-plan for cath today
-tro 0.600
-chest x ray with No radiographic evidence of acute cardiopulmonary abnormality.
-EKG sinus issa, nonspecific ST abnormality
-cardiology following
#essential HTN
#HLD
-Vascepa continued
-statin continued
#type 2 DM
-hold glipizide and metformin
-sliding scale
-glargine 20units at hs
#GERD
-PPI continued
#iron deficiency anemia
-ferrous sulfate continued
#depression
-duloxetine continued
#BPH
-finasteride continued
#DVT prophylaxis
-heparin drip continued
#CODE status
-full code
--- NOTE | 2025-02-16 12:33 | EDRN ---
racking technician in to speak to son about home medications.
--- NOTE | 2025-02-16 12:50 | EDRN ---
Dr. Fabian in w/ pt and son at this time.
--- NOTE | 2025-02-16 12:53 | EDRN ---
Dr. Crane (whipper beater) in room w/ pt at this time.
--- NOTE | 2025-02-16 13:00 | W.PN.UPDATE ---
Update Note
Progress Note Update
This note serves as an addendum to the H&P by superintendent plant AUBRIE
Carri HOLLI
HPI
74M Urdu speaker Non smoker HX ypertension, hyperlipidemia, and insulin-dependent diabetes seen at ER:
- BiB Palestinian speaker son
- for evaluation of substernal chest pressure that began last night after going for a run.
- Pain has not relented and even worsened this morning.
- Not pleuritic and not necessarily worse with exertion today.
- No prior history of [place], CAD
- No FHx of CAD
Denies any fevers or chills.
ER Tx:
received asa, heparin , nitro in ER.
plan for cath today.admitting for further management.
Reviewed VS:
Vital Signs
Temp Pulse Resp BP Pulse Ox
97.7 F 61 16 112/67 97
02/16/25 09:59 02/16/25 12:30 02/16/25 12:30 02/16/25 12:30 02/16/25 12:30
PE
Gen: NAD, conversant
HEENT: anicteric
Neck: supple
Lungs: CTA
Cor: RRR S1 S2
Abdomen: soft and benign exam
CARPET MEASURER: AAO3
MS: no edema
Psych: calm
Labs
02/16/25
11:43
WBC 7.8
Hgb 12.4 L
Plt Count 195
Creatinine 0.6 L
eGFR > 60.00
Glucose 162 H
AST 42
Alkaline Phosphatase 35 L
Troponin I 0.600 H*
CXR: No radiographic evidence of acute cardiopulmonary abnormality.
EKG: sinus issa, nonspecific ST abnormality
ASSESSMENT & PLAN
NSTEMI
- POS TPNI 0.600
- NPO for Cardiac cath today
- s/p ASA 325 mg at ER
- Heparin gtt
- NTG SL PRN
- DCA card consulted
Essential HTN
HLD
- Vascepa continued
- Rosuvastatin continued
T2DM
- Insulin glargine 20 units HS
- hold glipizide and metformin
- ISS low
GERD
- PO PPI continued
Fe deficiency anemia
- ferrous sulfate continued
Depression
- PO duloxetine continued
BPH HX
- finasteride continued
DVT Px: SQH
Code: Full
IVU
--- NOTE | 2025-02-16 13:15 | EDRN ---
Report verbally given to Mireya KISER in cath lab radiology technician.
--- NOTE | 2025-02-16 13:54 | EDRN ---
Report given to Soraya KISER in IVU who will be his RN post laborer wrecking and salvaging.
--- NOTE | 2025-02-16 14:00 | EDRN ---
Heparin was stopped in clay processing labourer as heparin infusion came back to room attached to stretcher off.
--- NOTE | 2025-02-16 14:39 | CONSULT.CT ---
Consultation
-
Date/Time Consultation Requested: 02/16 1445
Date/Time Consultation Performed: 02/16 1445
Requesting Provider: Cecilio MOE
Performing Provider: Lina YUSUF for Salter
Reason for Consultation: CABG eval
Patient History
Physicians
Family Physician: Dr. Gin melissa
Outpatient Conventional Underwriter: None
Inpatient Conventional Underwriter: Arthur
History of Present Illness
74-year-old Latvian speaking male with past medical history significant for hypertension, hyperlipidemia, and diabetes presents to [facility] with complaints of substernal chest pressure that began since last night after going
for a run. Pain has not subsided and worsened this morning. In the ER he was started on aspirin, heparin, and nitroglycerin. Patient was subsequently taken to the cardiac Chemical Maker for multivessel disease was found. CT surgery was consulted for
surgical evaluation.
Of note patient states that for the past month he would intermittently have episodes of chest pain while walking uphill.
Past Medical History
Past Medical History: CAD, HTN, Hypercholesterolemia and IDDM
Past Surgical History
Past Surgical History: Other
Hernia repair
Dental History
Upper and lower dentures
Last visit was earlier last week
Family History
Family Medical History: Diabetes
Social History
Alcohol: None
Drug: None
Tobacco: Non-Smoker
Living: With Family
Employment: Retired
Allergies
Allergy/AdvReac Type Severity Reaction Status Date / Time
No Known Allergies Allergy Unverified 02/16/25 10:05
Home Medications
�Medication �Instructions �Recorded �Confirmed �Type
cyclosporine 0.05 % eye drops in a 1 drp BOTH EYES BID 02/16/25 02/16/25 History
dropperette (Restasis)
duloxetine 30 mg capsule,delayed 30 mg PO DAILY 02/16/25 02/16/25 History
release
famotidine 20 mg tablet 20 mg PO DAILY 02/16/25 02/16/25 History
ferrous sulfate 325 mg (65 mg 325 mg PO DAILY 02/16/25 02/16/25 History
iron) tablet,delayed release
finasteride 1 mg tablet 1 mg PO DAILY 02/16/25 02/16/25 History
glipizide 10 mg tablet 10 mg PO BID 02/16/25 02/16/25 History
icosapent ethyl 1 gram capsule 1 g PO TID 02/16/25 02/16/25 History
(Vascepa)
insulin glargine U-300 conc 300 28 unit SC HS 02/16/25 02/16/25 History
unit/mL (1.5 mL) subcutaneous pen
(Toujeo SoloStar U-300 Insulin)
lidocaine 4 % topical patch 1 patch topical DAILYPRN PRN 02/16/25 02/16/25 History
topical pain
magnesium oxide 400 mg (241.3 mg 400 mg PO DAILY 02/16/25 02/16/25 History
magnesium) tablet
metformin 850 mg tablet 850 mg PO BID 02/16/25 02/16/25 History
omeprazole 20 mg capsule,delayed 20 mg PO DAILY 02/16/25 02/16/25 History
release
rosuvastatin 20 mg tablet 20 mg PO QPM 02/16/25 02/16/25 History
semaglutide 0.25 mg or 0.5 mg (2 0.5 mg SC WEEKLY 02/16/25 02/16/25 History
mg/3 mL) subcutaneous pen injector
(Ozempic)
sennosides 8.6 mg-docusate sodium 1 tab PO BID 02/16/25 02/16/25 History
50 mg tablet (Senna Plus)
Review of Systems
-
History Source: Patient
General: Reports No Symptoms
Physical Exam
Vital Signs
Temp 97.7 F 02/16/25 09:59
Temp route: Oral 02/16/25 09:59
Pulse 62 02/16/25 13:00
Resp Rate 13 02/16/25 13:00
Blood pressure 109/65 02/16/25 13:00
Blood pressure extremity used: Left upper arm 02/16/25 09:59
Position: Sitting 02/16/25 09:59
MAP (cuff-Liban Monitor) 77 02/16/25 13:00
SaO2 98 02/16/25 13:00
Oxygen Mode of Delivery Room air 02/16/25 12:05
Acceptable pain level during hospitalization? 0 02/16/25 10:05
Can the patient verbally communicate their pain? Yes 02/16/25 12:30
Pain scale ratin 02/16/25 12:30
Actual Weight 70.4 kg 02/16/25 11:41
Body Mass Index (BMI) 22.3 02/16/25 11:41
Labs
02/16/25 11:43
02/16/25 11:43
APTT 31.7 Sec (23.4-35.0) 02/16/25 11:43
Troponin I 0.600 ng/ml H* 02/16/25 11:43
Assessment / Plan
-
74-year-old male with past medical history listed above presented to [facility] with complaints of chest discomfort since last night. Left heart cath revealed multivessel disease and CT surgery was consulted for surgical
evaluation.
#CAD
-Patient's case will be discussed with attending physician. Tentative surgery date will be on February [address] Salter.
-Routine preoperative cardiothoracic surgery orders will be initiated.
-STS risk stratification score will be calculated after preoperative testing is complete
-Continue nitroglycerin and heparin gtt per cardiology
-Anesthesia consult placed
- Echocardiogram pending
--- NOTE | 2025-02-16 15:53 | CM ---
Addendum entered by Melissa Fofana 02/16/25 16:24:
Met with Mr. George and his son to review pre-op and post-op routines. We briefly reviewed the shower instructions. We also reviewed restrictions including sternal precautions and driving restrictions. We discussed a home visit by the Transitional
Care Nurse. He is agreeable to a home visit. He has the Cardiothoracic Surgery Educational Booklet. His spouse will be home to assist in his care if needed. The plan is for CABG on Wednesday02/19/25.
Original Note:
Reviewed chart. Met with Mr. George and his son to review discharge plans. Son was my automation specialist. Son states prior to admission Mr. George resides withhis son and vyeftruw-[id number]-ovw in a two story home without any steps to enter. He states he has a
full flight of steps to get to bedroom/full bathroom. He states he has a powder room on the first floor. He states prior to admission he was independent with ambulation and adls. He states he does not have any DME in the home. He states he has a
prescription plan and uses [facility]. Medical work-up in progress. The discharge plan is to return home with his son and awgkholf-[id number] verses some level of rehab, if indicated when medically stable.
[2025-02-16 16:15] LABS: Glucose - Point of Care 93 mg/dl (70-99)
[2025-02-16] MEDS: NOVOLOG FLEXPEN-LOW RESISTANCE SC (16:15)
[2025-02-16 17:02] LABS: APTT > 200 Sec (23.4-35.0)
--- NOTE | 2025-02-16 17:02 | PTCARENOTE ---
Rec'd pt from biology laboratory assistant. Tele- SR. HR 60s. R radial band on. No bleeding/hematoma noted. Pt has no complaints CP/SOB/discomfort. Nitro gtt infusing at 40mcg/min. Son at bedside translating. Plan of care reviewed w/ pt and son and verbalizes
understanding. Oriented to room. Currently in bed; call allen w/in reach.
--- NOTE | 2025-02-16 17:07 | PTCARENOTE ---
PTT resulted as over 200. Cecilio MOE made aware and protocol followed. See worklist.
--- NOTE | 2025-02-16 17:47 | CARDSERVLU ---
Echocardiogram with Lumason completed after protocol screening completed. Allergies verified.
Patent IV site: _RAC____
IV site flushed with 0.9% NaCl pre and post administration.
Diluted bolus method utilized to enhance visualization of ventricular segovia.
Total volume given: __4__ mL
Patient tolerated all procedures well without complications.
[2025-02-16] MEDS: CRESTOR 20 MG PO (17:55)
--- NOTE | 2025-02-16 20:38 | ITS.CL.CATH ---
Hydroelectric Station Operator Chief - Catheterization
Cardiac Catheterization
Procedure Report:
LEFT HEART CATHETERIZATION
Date of Procedure: February 16, 2025
Referring: Joao Ross MD
PROCEDURES:
1. Left heart catheterization, coronary angiogram.
2. Moderate sedation
INDICATION: NSTEMI
ACCESS: Right radial artery, 6 Turkish sheath, and ultrasound-guided
Ultrasound was utilized for vascular access. The radial artery was visualized under ultrasound, and the vessel was patent and pulsatile. An image was stored permanently in the patient's medical record. Under direct ultrasound guidance, a 6 Turkish
sheath was inserted into the artery using a micropuncture kit through a modified Seldinger technique.
HEMODYNAMICS : (mmHg)
AO (s/d) : 78/40
LV (s/d) : 80/8
LVEDP : 17
CORONARY FINDINGS
DOMINANCE: Right
Left Main Trunk (LMT):� Large caliber vessel that gives rise to the LAD and LCx branches and is free of angiographic disease.
Left Anterior Descending Artery (LAD):� Large caliber vessel that gives off a large major diagonal as it courses along the anterior inter-ventricular groove before wrapping around the cardiac apex. The LAD has ostial 90% calcified stenosis. The
proximal to mid LAD has diffuse disease.� The major diagonal has proximal 70% stenosis.�
Left Circumflex Artery (LCx):� Large caliber vessel that gives off several small obtuse marginals (OM), a moderate caliber OM and then a large caliber major OM as it courses along the atrio-ventricular (AV) groove.� The mid-LCx has a long area of
diffuse disease up to 40-50% stenosis.�
Right Coronary Artery (RCA):� Large caliber dominant vessel is a chronic total occlusion. This is supplied by robust left to right collaterals.�
SEDATION: 37 minutes of procedural sedation was utilized. An independent medical assistant secretary was present to assist with and help manage the patient's level of consciousness and physiologic status.
RADIATION SUMMARY: Fluoro Time (min): 4.5, Dose (mGy): 274.9, DAP (Gy.cm2) : 17 point
Closure Device: Vascular band over right radial artery, 10 cc of air
CONCLUSIONS
1. Multivessel coronary artery disease involving ostial to proximal LAD as well as 100% chronic total occlusion of proximal RCA.
2. Mildly elevated LVEDP.
RECOMMENDATIONS
1. Ongoing management of acute coronary syndrome with aspirin, unfractionated heparin, beta-aurora as tolerated and high intensity statin.
2. CT surgery consult for consideration for coronary artery bypass grafting.
3. Echocardiogram to assess biventricular function and rule out any significant valvular disease.
4. Wean radialband per protocol.
5. Aggressive management of cardiovascular risk factors.
6. Eventual referral for outpatient cardiac rehab.
Ladan Hernandes MD, FACC, [facility]
[2025-02-16] MEDS: RESTASIS 0.05% OPHTHALMIC EMULSION 1 DROPS BOTH EYES (21:26)
[2025-02-16] MEDS: SENOKOT-S 1 TABLET PO (21:26)
[2025-02-16] MEDS: LANTUS 0.2 UNITS SC (21:27)
[2025-02-16] MEDS: PEPCID 20 MG PO (21:54)
[2025-02-16] MEDS: PROTONIX 40 MG PO (21:54)
[2025-02-16 22:16] LABS: Glucose - Point of Care 171 mg/dl (70-99)
--- NOTE | 2025-02-16 23:49 | PTCARENOTE ---
Pt c/o right side chest pain 2/10 after dinner. Pepcid and Protonix given with positive result.
[2025-02-17] VITALS (22 sets, daily range): BP systolic 75–141; BP diastolic 42–80; BMI 22.2
[2025-02-17 01:29] LABS: Hematocrit 27.5 % (39.0-52.0); Hemoglobin 9.9 g/dL (13.0-18.0); Mean Corpuscular Hgb 32.6 pg (27.0-31.0); Mean Corpuscular Volume 90.5 fL (80.0-94.0); Platelet Count 162 10^3/uL (130-400); Red Blood Cell Count 3.04 10^6/uL (4.70-6.10); Red Cell Dist. Width 11.8 % (11.5-14.5); White Blood Cell Count 6.7 10^3/uL (4.8-10.8)
[2025-02-17 01:31] LABS: APTT 56.6 Sec (23.4-35.0)
[2025-02-17 01:37] LABS: ALT (SGPT) 29 U/L (0-50); AST (SGOT) 49 U/L (17-59); Albumin 3.7 g/dl (3.5-5.0); Alkaline Phosphatase 31 U/L (38-126); Blood Urea Nitrogen 22 mg/dl (9-20); Calcium 8.4 mg/dl (8.4-10.2); Carbon Dioxide 25 mmol/L (22-30); Chloride 104 mmol/L (98-107); Direct Bilirubin 0.1 mg/dl (0.0-0.4); Estimated Creatinine Clearance 94 ml/min; Glucose 156 mg/dl (70-99); HDL Cholesterol 40 mg/dl; LDL Cholesterol, Calculated 40 mg/dl; Potassium 3.9 mmol/L (3.5-5.1); Sodium 137 mmol/L (135-145); Total Bilirubin 0.7 mg/dl (0.2-1.3); Total Cholesterol 101 mg/dl (50-199); Total Protein 5.6 g/dl (6.3-8.2); Triglyceride 107 mg/dl (10-149); Very Low Density Lipoprotein 21 mg/dl (0-30); eGFR > 60.00
--- NOTE | 2025-02-17 07:03 | W.PN.HOSP.TC ---
Today's Communication/Plan
-
See plan
Assessment / Plan
Assessment / Plan
Physical Exam
General: Well Developed, Well Nourished and No Apparent Distress
HEENT: Normocephalic, Moist mucous membranes and Atraumatic
Respiratory: Clear to Auscultation Bilaterally
Cardiac: S1/S2 and Regular Rhythm
GI: Soft, Non Tender, Non Distended and Normal Bowel Sounds
Musculoskeletal: No Cyanosis and No Edema
Skin: Warm. Dry.
Neuro: AAO x 3 and Nonfocal/grossly intact
Psych: Calm
Assessment/Plan
74-year-old male, Slovak Speaking, with past medical history of hypertension, hyperlipidemia, and insulin-dependent diabetes mellitus, presented to the emergency department for evaluation of substernal chest pressure that began the night before
presentation, after going for a run. Pain did not go away after rest, but actually worsened.
Patient received Aspirin, Heparin Drip, and nitroglycerin in the emergency room.
#NSTEMI
-Status post Aspirin 325
-Cardiac cath with multivessel coronary artery disease involving ostial to proximal LAD as well as 100% chronic total occlusion of proximal RCA and mildly elevated LVEDP
-Continue aspirin, unfractionated heparin, beta-aurora as tolerated and high intensity statin
-Aggressive management of cardiovascular risk factors including hypertension and Diabetes Mellitus
-Eventual outpatient cardiac rehab
-Cardiology consult appreciated
-CT Surgery evaluation for CABG
#essential HTN
#HLD
-Vascepa continued
-statin continued
#Type 2 DM
-hold glipizide and metformin
-sliding scale
-glargine 20units at hs
#GERD
-PPI continued
#iron deficiency anemia
-ferrous sulfate continued
#depression
-duloxetine continued
#BPH
-finasteride continued
#DVT Prophylaxis: Heparin Drip
#CODE status: Full Code
Anticipated Discharge: > 48 hours
Subjective/Interval History
-
Date of Service: February 17, 2025
Patient was seen and examined. He denied chest pain or any other complaints, he was sitting and eating breakfast comfortably. Overnight, he had some chest pain which resolved with Protonix and Pepcid.
Objective Data
-
Labs:
Laboratory Results
02/17/25 02/17/25 02/17/25
01:11 06:00 08:00
WBC 6.7
Hgb 9.9 L D
Hct 27.5 L
Plt Count 162
PT Cancelled Pending
INR Cancelled Pending
APTT 56.6 H Cancelled Pending
Sodium 137
Potassium 3.9
Chloride 104
Carbon Dioxide 25
BUN 22 H
Creatinine 0.7
Glucose 156 H
Calcium 8.4
Total Bilirubin 0.7
AST 49
ALT 29
Alkaline Phosphatase 31 L
Vital Signs:
Vital Signs
Temp Pulse Resp BP Pulse Ox
98.2 F 65 16 97/65 96
02/17/25 03:35 02/17/25 05:00 02/17/25 03:35 02/17/25 05:00 02/17/25 03:35
I&O
02/16/25 02/17/25 02/18/25
06:59 06:59 06:59
Intake Total 200 / 200
Output Total 1050 / 1050
Balance -850 / -850
[2025-02-17 07:24] LABS: Glucose - Point of Care 138 mg/dl (70-99)
[2025-02-17] MEDS: CYMBALTA DELAYED RELEASE 30 MG PO (08:03)
[2025-02-17] MEDS: PROTONIX 40 MG PO (08:03)
[2025-02-17] MEDS: MAG-TAB SR 84 MG PO (08:04)
[2025-02-17] MEDS: TYLENOL 650 MG PO (08:05)
[2025-02-17] MEDS: FEOSOL 325 MG PO (08:05)
[2025-02-17] MEDS: LOW STRENGTH ASPIRIN 81 MG PO (08:05)
[2025-02-17] MEDS: PEPCID 20 MG PO (08:06)
[2025-02-17] MEDS: SENOKOT-S 1 TABLET PO ×2 (08:06→21:18)
[2025-02-17] MEDS: RESTASIS 0.05% OPHTHALMIC EMULSION 1 DROPS BOTH EYES ×2 (08:06→21:18)
[2025-02-17] MEDS: NOVOLOG FLEXPEN-LOW RESISTANCE SC ×2 (08:17→13:27)
[2025-02-17 08:47] LABS: Glycohemoglobin (HgbA1c) 7.8 % (4.0-5.6)
[2025-02-17 09:49] LABS: PT 13.5 Sec (11.4-14.6)
[2025-02-17 09:50] LABS: APTT 62.4 Sec (23.4-35.0)
[2025-02-17 12:55] LABS: Glucose - Point of Care 153 mg/dl (70-99)
--- NOTE | 2025-02-17 13:30 | W.PN.CARDCBS ---
Today's Communication / Plan
-
Continue current cardiac meds for treatment of NSTEMI
Impression / Plan
-
PCP:Evan Greenfield
does not see tank carpenter
Impression:
NSTEMI
Chest pain/pressure
Elevated troponin
EKG with nonspecific ST abnormality
Diabetes mellitus on insulin
Hypertension
Hyperlipidemia
74-year-old male presents to ED for substernal chest pressure and shortness of breath since last night. Patient is Persian speaking and history is obtained from his son who is at bedside. Past medical history hypertension, hyperlipidemia, type 2
diabetes on insulin. Son reports pts sugars have been higher and he has been trying to increase his physical activity. Last night on his nightly walk he ran for part of it. When he returned home he developed chest pressure. Went to bed and slept
through the night. When he woke up still had 4-5 out of 10 chest pressure and came to ED. Pressure does not radiate. He feels mildly short of breath. No diaphoresis, nausea, palpitations, lightheadedness. In ED EKG normal sinus rhythm with
nonspecific ST abnormality. Patient has received 3 sublingual nitroglycerin with relief of pain. Received 4 baby aspirin and started on heparin drip.
First troponin back at 0.6.
Plan:
-NSTEMI: Presenting with chest discomfort found to have dynamic EKG changes and elevated troponin
Underwent left heart catheterization which revealed MV CAD
Chest pain-free this morning at the time of my evaluation
Agree with medical management: Aspirin, high intensity statin, heparin drip and nitro drip. Marginal blood pressure limits addition of metoprolol at this time.
Evaluated by CT surgery with tentative plan for CABG this coming week
Discussed with son and family at bedside
Progress Note - Caterpillar Mechanic
Subjective
Date of Service: February 17, 2025
No acute overnight events. Patient's resting comfortably in bed in the IVU. No further chest discomfort on nitro drip.
Objective
Labs:
02/17/25 01:11
02/17/25 01:11
Labs
Hgb 9.9 g/dL (13.0-18.0) L D 02/17/25 01:11
Hct 27.5 % (39.0-52.0) L 02/17/25 01:11
Plt Count 162 10^3/uL (130-400) 02/17/25 01:11
PT 13.5 Sec (11.4-14.6) 02/17/25 09:32
INR 1.00 02/17/25 09:32
APTT 62.4 Sec (23.4-35.0) H 02/17/25 09:32
Sodium 137 mmol/L (135-145) 02/17/25 01:11
Potassium 3.9 mmol/L (3.5-5.1) 02/17/25 01:11
BUN 22 mg/dl (9-20) H 02/17/25 01:11
Creatinine 0.7 mg/dL (0.7-1.3) 02/17/25 01:11
Glucose 156 mg/dl (70-99) H 02/17/25 01:11
Troponins
02/16/25 02/16/25 02/16/25
11:43 16:30 18:08
Troponin I 0.600 H* 1.520 H* D Cancelled
02/16/25 02/17/25 02/17/25
19:30 01:11 09:32
Troponin I 2.300 H* D 3.310 H* D 3.730 H*
Vital Signs and I&O:
Vital Signs
Temp Pulse Resp BP Pulse Ox
98.4 F 59 18 94/63 97
02/17/25 07:21 02/17/25 12:00 02/17/25 07:21 02/17/25 08:00 02/17/25 07:54
Vital Signs
Temp Pulse Resp BP Pulse Ox
98.4 F 59 18 94/63 97
02/17/25 07:21 02/17/25 12:00 02/17/25 07:21 02/17/25 08:00 02/17/25 07:54
Intake & Output
02/15/25 02/16/25 02/17/25 02/18/25
06:59 06:59 06:59 06:59
Intake Total 200 / 200
Output Total 1050 / 1050 600 / 600
Balance -850 / -850 -600 / -600
Physical Exam
Physical Exam
Gen: NAD, AAOx3
HEENT: NC/AT, sclera anicteric
Neck: No JVD
CV: RRR, NL s1/s2, no M/R/G
Lungs: CTAB
Abd: S/ND
Ext: No LE edema
Skin: Warm, dry
Neuro: Non-focal
--- NOTE | 2025-02-17 15:46 | PTCARENOTE ---
Pt has been chest pain free. His am BP 94/63 and he had c/o headache. Med with Tylenol 650 mg po as ordered with relief. NTG drip weaned from 10 mcg/min to 5 mcg/min. After he was chest pain free all morning, Ntg tapered to off. His most recent BP
141/70, 129/80, remains CP free
[2025-02-17 17:51] LABS: Glucose - Point of Care 243 mg/dl (70-99)
[2025-02-17] MEDS: NOVOLOG FLEXPEN-LOW RESISTANCE 2 UNITS SC (18:20)
[2025-02-17] MEDS: CRESTOR 20 MG PO (18:21)
[2025-02-17 21:10] LABS: Glucose - Point of Care 240 mg/dl (70-99)
[2025-02-17] MEDS: LANTUS 0.2 UNITS SC (21:18)
[2025-02-17] MEDS: HEPARIN 25000 UNITS/250 ML IV (22:49)
[2025-02-17] MEDS: OCEAN, SALINE MIST 1 SPRAYS NASAL (22:55)
[2025-02-17 23:21] LABS: APTT 62.9 Sec (23.4-35.0)
[2025-02-18] VITALS (9 sets, daily range): BP systolic 101–144; BP diastolic 63–125; BMI 21.8
--- NOTE | 2025-02-18 01:31 | W.PN.CT ---
Today's Communication / Plan
-
Plan
-Cont. current medical management per primary team
-Cont. current meds (ASA, Heparin gtt, NTG gtt, Crestor, Lantus)
-Ongoing preop workup/optimization
-Will d/c heparin and NTG gtt non licensed operator to OR
-For CABG +/- NITZA clip by Dr. Salter tomorrow 02/19/25 (2nd case)
Assessment / Plan
-
Assessment:
-Multivessel CAD
-NSTEMI (trop peaked @ 3.73)
-[place]
-LVEF 55-60% per TTE 02/16/25
-HTN
-HLD
-T2DM (on insulin, A1C 7.8)
-S/P inguinal herniorrhaphy
Discussed patient care with: Cardiology, Nursing, Respiratory Therapy, Pharmacy and Care Team
Subjective
-
Date of Service: February 18, 2025
No issues overnight, denies CP/SOB
Objective Data
-
Lab Results
02/17/25 01:11
PT 13.5 Sec (11.4-14.6) 02/17/25 09:32
INR 1.00 02/17/25 09:32
APTT 62.9 Sec (23.4-35.0) H 02/17/25 22:59
Vital Signs
Vital Signs
Temp Pulse Resp BP Pulse Ox
98.5 F 63 16 129/80 97
02/17/25 22:52 02/17/25 19:45 02/17/25 22:52 02/17/25 15:03 02/17/25 22:52
CT Intake/Output/Weight
02/17/25 02/17/25 02/18/25
06:59 18:59 06:59
Intake Total 200 / 200 400 / 400
Output Total 550 / 1050 600 / 600
Balance -350 / -850 -600 / -200 400 / -200
SaO2: 97 (RA)
Physical Exam
-
General: Awake, Oriented and AOx3
Cardiovascular: Regular rate & rhythm, No Murmurs, No Rub and No Gallop
Extremities: No Edema
Data Reviewed
-
Lab Results: Results Reviewed
Medications: Active Meds Reviewed
Chest X-Ray: Report Reviewed and Image Reviewed
ECG: Report Reviewed and Image Reviewed
[2025-02-18 06:38] LABS: APTT 136.9 Sec (23.4-35.0)
[2025-02-18 06:41] LABS: Hemoglobin 11.1 g/dL (13.0-18.0); Mean Corp Hgb Conc. 35.8 g/dL (33.0-37.0); Mean Corpuscular Hgb 32.3 pg (27.0-31.0); Mean Corpuscular Volume 90.1 fL (80.0-94.0); Platelet Count 166 10^3/uL (130-400); Red Blood Cell Count 3.44 10^6/uL (4.70-6.10); Red Cell Dist. Width 11.5 % (11.5-14.5)
--- NOTE | 2025-02-18 07:46 | W.PN.UPDATE ---
Update Note
Progress Note Update
Consent was obtained in the presence of a certified certified court/medical interpreter. I explained both the risk and benefits of the surgery as well as the conduct. Mr. George has significant cardiovascular disease with total occlusion of the RCA with collateral filling
from left to right. He also has significant disease in the proximal LAD at the ostium that also extends down towards a proximal diagonal vessel. Given his disease pattern, age and functional status multidisciplinary team consensus that he will do
much better with surgery overall. I also called his son after obtaining consent with certified court/medical interpreter to discuss his case, all questions were answered to best of my ability. Plan is for surgery with me tomorrow as a later start.
Thank you for involving me in the care of this patient. Please feel free to contact me with any questions or concerns.
William Salter MD, MS
Cardiothoracic Surgeon
[facility]
This dictation was created using the [employer] dictation system. Please excuse any grammatical, typographical, or 'sound alike' errors.
[2025-02-18 08:07] LABS: Glucose - Point of Care 142 mg/dl (70-99)
--- NOTE | 2025-02-18 08:11 | W.PN.HOSP.TC ---
Today's Communication/Plan
-
Continue Heparin Drip
Surgery (CABG) tomorrow
Assessment / Plan
Assessment / Plan
Physical Exam
General: Well Developed, Well Nourished and No Apparent Distress
HEENT: Normocephalic, Moist mucous membranes and Atraumatic
Respiratory: Clear to Auscultation Bilaterally
Cardiac: S1/S2 and Regular Rhythm
GI: Soft, Non Tender, Non Distended and Normal Bowel Sounds
Musculoskeletal: No Cyanosis and No Edema
Skin: Warm. Dry.
Neuro: AAO x 3 and Nonfocal/grossly intact
Psych: Calm
Assessment/Plan
74-year-old male, Serbian Speaking, with past medical history of hypertension, hyperlipidemia, and insulin-dependent diabetes mellitus, presented to the emergency department for evaluation of substernal chest pressure that began the night before
presentation, after going for a run. Pain did not go away after rest, but actually worsened.
Patient received Aspirin, Heparin Drip, and nitroglycerin in the emergency room.
#NSTEMI
-Status post Aspirin 325
-Cardiac cath with multivessel coronary artery disease involving ostial to proximal LAD as well as 100% chronic total occlusion of proximal RCA and mildly elevated LVEDP
-Continue aspirin, unfractionated heparin, beta-aurora as tolerated and high intensity statin
-Aggressive management of cardiovascular risk factors including hypertension and Diabetes Mellitus
-Eventual outpatient cardiac rehab
-Cardiology consult appreciated
-CT Surgery evaluation for CABG
#Essential Hypertension
#Hyperlipidemia
-Vascepa continued
-statin continued
#Type 2 Diabetes Mellitus
-hold glipizide and metformin
-sliding scale
-glargine 20units at hs
#Gastroesophageal Reflux Disease
-PPI continued
#Constipation
-Optimize bowel regimen
#Iron deficiency anemia
-ferrous sulfate continued
#Depression
-duloxetine continued
#BPH
-finasteride continued
DVT Prophylaxis: Heparin Drip
Code Status: Full Code
Anticipated Discharge: > 48 hours
Subjective/Interval History
-
Date of Service: February 18, 2025
Patient was seen and examined. He denied any chest pain, was ambulating around the unit without any complaints.
Objective Data
-
Labs:
Laboratory Results
02/17/25 02/18/25
22:59 06:14
WBC 5.0
Hgb 11.1 L
Hct 31.0 L
Plt Count 166
APTT 62.9 H 136.9 H
Vital Signs:
Vital Signs
Temp Pulse Resp BP Pulse Ox
97.8 F 61 20 106/69 97
02/18/25 07:21 02/18/25 04:15 02/18/25 07:21 02/18/25 04:14 02/18/25 07:21
I&O
02/17/25 02/18/25 02/19/25
06:59 06:59 06:59
Intake Total 200 / 200 520 / 520
Output Total 1050 / 1050 1300 / 1300
Balance -850 / -850 -780 / -780
[2025-02-18] MEDS: NOVOLOG FLEXPEN-LOW RESISTANCE SC (08:26)
[2025-02-18] MEDS: CYMBALTA DELAYED RELEASE 30 MG PO (08:56)
[2025-02-18] MEDS: SENOKOT-S 1 TABLET PO ×2 (08:57→20:25)
[2025-02-18] MEDS: FEOSOL 325 MG PO (08:57)
[2025-02-18] MEDS: PROTONIX 40 MG PO (08:57)
[2025-02-18] MEDS: RESTASIS 0.05% OPHTHALMIC EMULSION 1 DROPS BOTH EYES ×2 (08:57→20:25)
[2025-02-18] MEDS: PEPCID 20 MG PO (08:58)
[2025-02-18] MEDS: MAG-TAB SR 84 MG PO (08:58)
[2025-02-18] MEDS: LOW STRENGTH ASPIRIN 81 MG PO (08:58)
[2025-02-18] MEDS: OCEAN, SALINE MIST 1 SPRAYS NASAL (08:59)
--- NOTE | 2025-02-18 09:56 | W.PN.CARDCBS ---
Today's Communication / Plan
-
Continue current cardiac meds
Timing of OR per CT surgery
Impression / Plan
-
PCP:Evan Greenfield
does not see patient centered care specialist
Impression:
NSTEMI
Chest pain/pressure
Elevated troponin
EKG with nonspecific ST abnormality
Diabetes mellitus on insulin
Hypertension
Hyperlipidemia
74-year-old male presents to ED for substernal chest pressure and shortness of breath since last night. Patient is Ukrainian speaking and history is obtained from his son who is at bedside. Past medical history hypertension, hyperlipidemia, type 2
diabetes on insulin. Son reports pts sugars have been higher and he has been trying to increase his physical activity. Last night on his nightly walk he ran for part of it. When he returned home he developed chest pressure. Went to bed and slept
through the night. When he woke up still had 4-5 out of 10 chest pressure and came to ED. Pressure does not radiate. He feels mildly short of breath. No diaphoresis, nausea, palpitations, lightheadedness. In ED EKG normal sinus rhythm with
nonspecific ST abnormality. Patient has received 3 sublingual nitroglycerin with relief of pain. Received 4 baby aspirin and started on heparin drip.
First troponin back at 0.6.
Plan:
-NSTEMI: Presenting with chest discomfort found to have dynamic EKG changes and elevated troponin
Underwent left heart catheterization which revealed MV CAD
Chest pain-free this morning at the time of my evaluation
Agree with medical management: Aspirin, high intensity statin, heparin drip and nitro drip. Marginal blood pressure limits addition of metoprolol at this time.
Evaluated by CT surgery with tentative plan for CABG this coming week
Progress Note - Renal Nurse
Subjective
Date of Service: February 18, 2025
No acute overnight events. Resting comfortably in the IVU. No further chest discomfort.
Objective
Labs:
02/18/25 06:14
02/17/25 01:11
Labs
Hgb 11.1 g/dL (13.0-18.0) L 02/18/25 06:14
Hct 31.0 % (39.0-52.0) L 02/18/25 06:14
Plt Count 166 10^3/uL (130-400) 02/18/25 06:14
PT 13.5 Sec (11.4-14.6) 02/17/25 09:32
INR 1.00 02/17/25 09:32
APTT 136.9 Sec (23.4-35.0) H 02/18/25 06:14
Sodium 137 mmol/L (135-145) 02/17/25 01:11
Potassium 3.9 mmol/L (3.5-5.1) 02/17/25 01:11
BUN 22 mg/dl (9-20) H 02/17/25 01:11
Creatinine 0.7 mg/dL (0.7-1.3) 02/17/25 01:11
Glucose 156 mg/dl (70-99) H 02/17/25 01:11
Troponins
02/16/25 02/16/25 02/16/25
11:43 16:30 18:08
Troponin I 0.600 H* 1.520 H* D Cancelled
02/16/25 02/17/25 02/17/25
19:30 01:11 09:32
Troponin I 2.300 H* D 3.310 H* D 3.730 H*
02/17/25
15:58
Troponin I 3.380 H*
Vital Signs and I&O:
Vital Signs
Temp Pulse Resp BP Pulse Ox
97.8 F 61 20 106/69 97
02/18/25 07:21 02/18/25 04:15 02/18/25 07:21 02/18/25 04:14 02/18/25 07:21
Vital Signs
Temp Pulse Resp BP Pulse Ox
97.8 F 61 20 106/69 97
02/18/25 07:21 02/18/25 04:15 02/18/25 07:21 02/18/25 04:14 02/18/25 07:21
Intake & Output
02/16/25 02/17/25 02/18/25 02/19/25
06:59 06:59 06:59 06:59
Intake Total 200 / 200 520 / 520
Output Total 1050 / 1050 1300 / 1300
Balance -850 / -850 -780 / -780
Physical Exam
Physical Exam
Gen: NAD, AAOx3
HEENT: NC/AT, sclera anicteric
Neck: No JVD
CV: RRR, NL s1/s2, no M/R/G
Lungs: CTAB
Abd: S/ND
Ext: No LE edema
Skin: Warm, dry
Neuro: Non-focal
[2025-02-18 13:13] LABS: Glucose - Point of Care 205 mg/dl (70-99)
[2025-02-18] MEDS: NOVOLOG FLEXPEN-LOW RESISTANCE 2 UNITS SC ×2 (13:14→16:31)
--- NOTE | 2025-02-18 13:53 | W.PN.UPDATE ---
Update Note
Progress Note Update
STS RISK SCORE
Procedure Type:�Isolated CABG
Perioperative Outcome Estimate %
Operative Mortality 1.2%
Morbidity & Mortality 5.71%
Stroke 0.74%
Renal Failure 0.911%
Reoperation 2.44%
Prolonged Ventilation 2.37%
Deep Sternal Wound Infection 0.117%
Long Hospital Stay (>14 days) 4.33%
Short Hospital Stay (<6 days)* 45.1%
Clinical Summary
Planned Surgery: Isolated CABG, Urgent, First cardiovascular surgery
Demographics: 74 year old, male, 70kg, 178cm, BMI: 22.1 kg/m�
Lab Values: Creatinine: 0.7 mg/dL, Hematocrit: 27.5%, WBC Count: 6.7 10�/�L, Platelet Count: 946123 cells/�L
PreOp Medications: Insulin diabetes control
Substance Abuse: Never smoker
Risk Factors / Comorbidities: Insulin-dependent Diabetes Mellitus, Hypertension
Cardiac Status: NYHA Class II, Ejection Fraction = 57%
Coronary Artery Disease: 2 vessels diseased, Non-ST Elevation CO, CO: 1 to 7 Days
[2025-02-18 14:14] LABS: APTT 81.3 Sec (23.4-35.0)
[2025-02-18 16:30] LABS: Glucose - Point of Care 214 mg/dl (70-99)
[2025-02-18] MEDS: CRESTOR 20 MG PO (16:36)
--- NOTE | 2025-02-18 17:01 | PTCARENOTE ---
Pt ambulating in halls with son, shawanda well, denies SOB, denies chest pain.
[2025-02-18] MEDS: MIRALAX 17 GRAMS PO (18:15)
--- NOTE | 2025-02-18 18:25 | PTCARENOTE ---
Pt c/o constipation, no bm for [address] Molina notified, Miralax ordered and given to Pt.
[2025-02-18 20:55] LABS: APTT 88.3 Sec (23.4-35.0)
[2025-02-18] MEDS: HEPARIN 25000 UNITS/250 ML IV (20:58)
[2025-02-18 22:11] LABS: Glucose - Point of Care 225 mg/dl (70-99)
[2025-02-18] MEDS: LANTUS 0.15 UNITS SC (22:27)
--- NOTE | 2025-02-18 23:21 | PTCARENOTE ---
Pt rec'd at change of shift awake,alert with son at bedside. Pt prepped for [facility] tomorrow. Clipped and showered with 4% chlorhexidine soap.
Heparin continued at 1050 units/hr. Npo after mn
--- NOTE | 2025-02-18 23:31 | PTCARENOTE ---
Anesthesia Dr Hilario Keyes aware pts needs to be seen preop.
[2025-02-19] VITALS (18 sets, daily range): BP systolic 61–145; BP diastolic 53–95; BMI 22.0
[2025-02-19 06:12] LABS: APTT 89.9 Sec (23.4-35.0)
[2025-02-19 08:50] LABS: ACT-LR - POC 250 Seconds (116-155)
[2025-02-19 09:47] LABS: Glucose - Point of Care 170 mg/dl (70-99)
[2025-02-19] MEDS: MAGNESIUM OXIDE 500 MG PO (10:02)
[2025-02-19] MEDS: PROTONIX 40 MG PO (10:02)
[2025-02-19] MEDS: LOPRESSOR 25 MG PO (10:02)
[2025-02-19] MEDS: BACTROBAN 2% OINTMENT 1 APPLIC NASAL ×3 (10:03→19:46)
[2025-02-19] MEDS: CYMBALTA DELAYED RELEASE PO (10:19)
[2025-02-19] MEDS: MIRALAX PO (10:20)
[2025-02-19] MEDS: SENOKOT-S PO ×2 (10:20→19:46)
[2025-02-19] MEDS: FEOSOL PO (10:20)
[2025-02-19] MEDS: NOVOLOG FLEXPEN-LOW RESISTANCE SC ×2 (10:21→19:58)
[2025-02-19] MEDS: RESTASIS 0.05% OPHTHALMIC EMULSION 1 DROPS BOTH EYES ×2 (10:26→23:17)
--- NOTE | 2025-02-19 11:41 | CM ---
Chart reviewed. Patient is waiting to go to the OR. Patient is independent of ADLS, lives with his son and DIL in a 2 STH, 0 TERENCE, 0 DME. Plan is for the patient to return home with CT Transitional RN. CM to follow
--- NOTE | 2025-02-19 12:20 | PTCARENOTE ---
Heparin d/c'd. Pt sent to CVOR with chart, pacer box and antibiotics. Pt NPO after midnight. AM meds given.
[2025-02-19 12:54] LABS: ACT+ - POC 126 Seconds (82-134)
[2025-02-19 13:08] LABS: B.E. - POC 1.6 mmol/L; Glucose - POC 131 mg/dl (70-99); HCO3 - POC 26 mmol/L (21-28); Hematocrit - POC 31 % PCV (42-52); Hemodilution- POC No; Hemoglobin Calculated - POC 10.7; Ionized Calcium - POC 1.12 mmol/L (1.15-1.33); Lactate - POC 0.63 mmol/L (0.36-0.75); O2 Saturation %Calculated-POC 99.7 % (94-98); PCO2 - POC 40 mmHg (35-48); PO2 - POC 189 mmHg (83-108); POC Comment PRE; Potassium - POC 3.6 mmol/L (3.5-5.1); Sodium - POC 144 mmol/L (136-145); Specimen Type - POC Arterial; pH - POC 7.43 (7.35-7.45)
[2025-02-19 13:21] LABS: Urine Albumin 1+ (Neg - Trace); Urine Bilirubin Negative (Negative); Urine Character Clear (Clear); Urine Color Yellow; Urine Glucose 2+ (Negative); Urine Ketone Negative (Negative); Urine Leukocyte Negative (Negative); Urine Nitrite Negative (Negative); Urine Occult Blood 4+ (Negative); Urine Urobilinogen 1+ (Neg - 1+); Urine pH 6.5 (5.0-9.0)
[2025-02-19 13:26] LABS: Urine Mucus Moderate
[2025-02-19 13:28] LABS: Urine Red Blood Cell 70-80 /HPF (0-2)
[2025-02-19 13:29] LABS: Urine Bacteria Few (Negative)
[2025-02-19 13:50] LABS: ACT+ - POC 400 Seconds (82-134)
[2025-02-19 13:59] LABS: ACT+ - POC 427 Seconds (82-134)
[2025-02-19 14:19] LABS: ACT+ - POC 386 Seconds (82-134)
[2025-02-19 14:54] LABS: ACT+ - POC 389 Seconds (82-134)
[2025-02-19 15:04] LABS: ACT+ - POC 580 Seconds (82-134)
--- NOTE | 2025-02-19 15:22 | CON.INTV ---
Consultation
Consultation Request
Date/Time Consultation Requested: 02/19/2025-3:30 PM
Date/Time Consultation Performed: 02/19/2025-4 PM
Requesting Provider: Dr. Salter
Performing Provider: Dr. Gleason
Reason for Consultation: Postop ventilator/critical care management
Medical History
-
Chief Complaint: CAD
History of Present Illness:
74-year-old Greek speaking male with history of hypertension, hyperlipidemia and diabetes presented with substernal chest pain found to have multivessel CAD and underwent CABG-clinician oncology consulted for postoperative ventilator/critical care
management 02/19/25. The patient was seen postoperatively in the surgical intensive care unit. The patient is sedated on the ventilator review of systems was unobtainable. Operative records were reviewed. Pressors were reviewed. Chest tubes were
reviewed.
Past Medical History
Past Medical History: None (Hypertension. Hyperlipidemia. Diabetes. Hernia repair.)
Social History
Tobacco: Non-smoker
Alcohol: None
Drug: None
Personal:
Living: With Family
Occupational Exposures: No known asbestos exposure
Family History
Family History: Reviewed & Not Pertinent
Allergies / Home Medications
Allergies
Allergy/AdvReac Type Severity Reaction Status Date / Time
No Known Allergies Allergy Unverified 02/16/25 10:05
Home Medications
�Medication �Instructions �Recorded �Confirmed �Last Taken �Type
cyclosporine 0.05 % eye drops in a 1 drp BOTH EYES BID 02/16/25 02/16/25 Unknown History
dropperette (Restasis)
duloxetine 30 mg capsule,delayed 30 mg PO DAILY 02/16/25 02/16/25 Unknown History
release
famotidine 20 mg tablet 20 mg PO DAILY 02/16/25 02/16/25 Unknown History
ferrous sulfate 325 mg (65 mg 325 mg PO DAILY 02/16/25 02/16/25 Unknown History
iron) tablet,delayed release
finasteride 1 mg tablet 1 mg PO DAILY 02/16/25 02/16/25 Unknown History
glipizide 10 mg tablet 10 mg PO BID 02/16/25 02/16/25 Unknown History
icosapent ethyl 1 gram capsule 1 g PO TID 02/16/25 02/16/25 Unknown History
(Vascepa)
insulin glargine U-300 conc 300 28 unit SC HS 02/16/25 02/16/25 Unknown History
unit/mL (1.5 mL) subcutaneous pen
(Toujeo SoloStar U-300 Insulin)
lidocaine 4 % topical patch 1 patch topical DAILYPRN PRN 02/16/25 02/16/25 Unknown History
topical pain
magnesium oxide 400 mg (241.3 mg 400 mg PO DAILY 02/16/25 02/16/25 Unknown History
magnesium) tablet
metformin 850 mg tablet 850 mg PO BID 02/16/25 02/16/25 Unknown History
omeprazole 20 mg capsule,delayed 20 mg PO DAILY 02/16/25 02/16/25 Unknown History
release
rosuvastatin 20 mg tablet 20 mg PO QPM 02/16/25 02/16/25 Unknown History
semaglutide 0.25 mg or 0.5 mg (2 0.5 mg SC WEEKLY 02/16/25 02/16/25 Unknown History
mg/3 mL) subcutaneous pen injector
(Ozempic)
sennosides 8.6 mg-docusate sodium 1 tab PO BID 02/16/25 02/16/25 Unknown History
50 mg tablet (Senna Plus)
Review of Systems
-
Unable to Obtain full review of systems at this time due to: Other (Per HPI)
Vitals / Labs / Diagnostic Testing
Vital Signs
Temp Pulse Resp BP Pulse Ox
97.8 F 62 16 92/59 97
02/19/25 09:50 02/19/25 10:02 02/19/25 09:50 02/19/25 10:02 02/19/25 09:50
Lab Data
02/18/25 06:14
02/17/25 01:11
Laboratory Results
02/18/25 02/19/25
20:37 05:46
APTT 88.3 H 89.9 H
Diagnostic Testing:
Physical Exam
-
Exam:
Well-nourished and well-developed in no apparent distress
HEENT-atraumatic, normocephalic, oral tracheal intubation
Heart-regular rate and rhythm-no murmurs, rubs or gallops
Chest-clear to auscultation, no wheezes, crackles, median sternotomy bandage is not removed
Abdomen soft nondistended
Extremities-no cyanosis, clubbing, edema and good peripheral pulses
Integument-intact, no rashes, lesions or ecchymosis
Neurologically not alert, not oriented, not moving any of his extremities sedated on a ventilator
Assessment
-
74-year-old Greek speaking male with history of hypertension, hyperlipidemia and diabetes presented with substernal chest pain found to have multivessel CAD and underwent CABG-clinician oncology consulted for postoperative ventilator/critical care
management 02/19/25.
Multivessel CAD with preoperative preserved EF
Status post CABG-Dr. Salter
Mild ujoyuf-nrhijxohrt-bzpdfovfiv 11.1
Hyperglycemia
Conditions present prior to admission:
Hypertension.
Hyperlipidemia.
Diabetes.
Hernia repair.
Plan
Ventilator settings reviewed
FiO2 will be weaned
Minute ventilation will be adjusted
Arterial blood gases will be monitored
Spontaneous breathing trial will be attempted with hopeful extubation after anesthesia/sedation wear off
Pulmonary artery catheter parameters will be followed
Pressors/antihypertensive/inotropes/diuretics will be provided as needed
Monitor chest tube output
Monitor hemoglobin
Monitor platelet count and coags
Transfuse blood product if needed
CT surgery following chest tubes
Monitor blood sugar
Insulin drip per protocol
Aspiration precautions
VAP prevention protocol
DVT prophylaxis
Early nutrition
Early mobilization
Critical care statement: A total of 55 minutes of critical care time was provided for this patient today. This includes management of ventilator, spontaneous breathing trial, arterial blood gases, pressors, of unstable vital signs, evaluation of the
patient at bedside, reviewing the patient's pertinent medical records including radiographs, microbiology, laboratory evaluations, and discussion with primary team and critical care nursing.
Diagnostic data:
Chest x-ray/-NAD
CT chest/-no acute disease in the chest
Echocardiogram 02/16/2025-EF 55-60%, basal to mid anterior inferior anteroseptal and inferoseptal hypokinesis, no significant valvular disease
Cardiac catheterization 02/16/25-multivessel CAD involving proximal LAD as well as 100% chronic total occlusion proximal RCA and mildly elevated LVEDP
Data Reviewed
-
EKG: Report reviewed by me
Radiology: Report reviewed by me
CT Scan: Report reviewed by me
Medical Tests (Nuc Med, Echo etc): Report reviewed by me
Labs: Labs reviewed by me
Critical Care Time (in minutes): 55
[2025-02-19 15:24] LABS: ACT+ - POC 533 Seconds (82-134)
[2025-02-19 15:36] LABS: B.E. - POC 4.9 mmol/L; Glucose - POC 117 mg/dl (70-99); HCO3 - POC 28 mmol/L (21-28); Hematocrit - POC 28 % PCV (42-52); Hemodilution- POC Yes; Hemoglobin Calculated - POC 9.4; Ionized Calcium - POC 0.92 mmol/L (1.15-1.33); Lactate - POC < 0.30 mmol/L (0.36-0.75); PCO2 - POC 34 mmHg (35-48); PO2 - POC 412 mmHg (83-108); POC Comment CPB; Potassium - POC 4.4 mmol/L (3.5-5.1); Sodium - POC 146 mmol/L (136-145); Specimen Type - POC Arterial; pH - POC 7.52 (7.35-7.45)
[2025-02-19 15:36] LABS: B.E. - POC 5.8 mmol/L; Glucose - POC 124 mg/dl (70-99); HCO3 - POC 29 mmol/L (21-28); Hematocrit - POC 27 % PCV (42-52); Hemodilution- POC Yes; Hemoglobin Calculated - POC 9.3; Ionized Calcium - POC 0.99 mmol/L (1.15-1.33); Lactate - POC < 0.30 mmol/L (0.36-0.75); O2 Saturation %Calculated-POC 99.9 % (94-98); PCO2 - POC 35 mmHg (35-48); PO2 - POC 292 mmHg (83-108); POC Comment WARM; Potassium - POC 4.8 mmol/L (3.5-5.1); Sodium - POC 146 mmol/L (136-145); Specimen Type - POC Arterial; pH - POC 7.52 (7.35-7.45)
[2025-02-19 15:39] LABS: ACT+ - POC 153 Seconds (82-134)
[2025-02-19] MEDS: TYLENOL PO ×2 (16:00→22:00)
[2025-02-19 16:20] LABS: ACT+ - POC 120 Seconds (82-134)
--- NOTE | 2025-02-19 16:37 | W.PN.CT.SURG ---
CT Surgery Operative Note
-
CARDIAC SURGERY OPERATIVE REPORT
Preoperative Diagnosis: Multivessel Coronary Artery Disease with NSTEMI
Postoperative Diagnosis: Same
Procedure(s) Performed:
1. Standard sternotomy with aortic and radiation cannulation
2. Left internal mammary artery harvesting, skeletonized
3. Coronary artery bypass grafting x 4 (In situ MEDRANO to LAD, Ao to RSVG to diagonal, Ao to RSVG to OM1, Ao to RSVG to RPDA - this was taken off the proximal portion of the diagonal graft due to vein length)
4. Left atrial appendage exclusion [35 mm device, SN [id number]]
5. Endoscopic vein harvesting of right lower extremity
6. Placement of temporary ventricular pacing wire
7. Transesophageal echocardiography
8. Administration of Recombinant AT3 / thrombate
Date of Surgery: 02/19/2025
Comorbidities:
1. NSTEMI, left heart cath this admission
2. Hypertension
3. Hyperlipidemia
4. Insulin dependent diabetic
Attending Surgeon: William Salter MD, MS
Assistants: William Lafleur PA-C (present and necessary to conference assistant, endoscopic vein harvest, retraction, suction, exposure, suture management, and wound closure under my direction)
Anesthesiology: Petar Manzanares MD and Gin Harris CRNA
Scrub and Circulating RNs: Juliana Gentile RN, Mayco Morillo RN
Picked Edge Sewing Machine Operator: Néstor Szymanski CCP
Anesthesia: GETA
EBL: per perfusion records
Products: 1 PRBC
CPB Time: 85 minutes
Aortic Cross Clamp Time: 75 minutes
Indication(s) for Procedures: This is a 74-year-old male Kiswahili speaking with multiple comorbidities who presented to the hospital with worsening chest pain after going for a run, he was found to have an NSTEMI and a chronic total occlusion of the
proximal RCA with collaterals from left to right. Given his disease pattern involving the proximal LAD and diabetic status, multidisciplinary team consensus was to pursue surgical revascularization.
Conduit(s) Quality:
MEDRANO -skeletonized/excellent flow
RSVG -good/minor varicosities and minimal thickening but overall decent quality vein
Target(s) Quality:
RCA/PDA -good/proxy 1.5 mm in size, test dosing of antegrade was acceptable, flow probe assessment demonstrated mean flow 14 cc a minute with a pulsatile index of 1.2, this graft was taken off of the proximal portion of the vein graft leading to the
diagonal vessel due to length
Diagonal -the large diagonal vessel was identified and grafted with the vein graft, mean flow was approximately 10 cc a minute with a pulse index of 2.9
OM -good/smaller/target but overall mean flow was 9 cc a minute with a pulsatile index of 3.3
LAD -excellent/good size distal target, mean flow was 12 cc a minute with a pulse index of 3.1, there was good visual flow in the LAD territory with obvious pinking up of the myocardium
Findings: His left ventricular ejection fraction preoperatively was 60% with no significant regional wall motion abnormalities. Following surgery his EF remained the same at 60% with no new regional wall motion abnormalities. He had a mild degree
of mitral valve insufficiency between the cleft which remained stable postoperatively. The MEDRANO was harvested in a skeletonized fashion. Following bypass grafting, test dose cardioplegia was given down each distal and confirmed patency and
hemostasis. Flow probe assessment of all grafts indicated acceptable mean flows with low pulsatility indices. His left atrial appendage was verified to be free of any thrombus or debris preoperatively and found to be totally occlusive
postoperatively. The OM graft did have a small needle hole bleed at the conclusion of the case that required me to manipulate the heart and placed a single repair stitch. His heart tissue was very fragile and manipulation of his apex resulted in
tearing of the epicardial fat. This was reinforced with [place] surgical sealant. 1 unit of PRBC was given as he was anemic on pump. He also was reluctant/resistant to heparin and required recombinant AT3. After giving a T3 his ACT was able to
be pushed above 400.
Description of Procedure: The patient was taken to the operating room. Their identity and procedure to be performed were verified and they were positioned supine on the operating table. Induction via general anesthesia with endotracheal intubation
was performed and central venous access and arterial monitoring were inserted. A preoperative transesophageal echocardiogram was performed to assess cardiac function and valvular function. The patient was then prepped and draped from chin to feet in
a sterile fashion. A preoperative time-out was performed with all members of the team present. A midline chest incision was performed along with median sternotomy. Simultaneous endoscopic access of the right lower extremity for saphenous vein
harvest was obtained along with administration of an initial 5,000 units of IV heparin. A RulTract sternal retractor was positioned to exposure the left internal mammary bed. The mammary was harvested and found to have good flow. A bulldog clamp was
applied to the distal end of the mammary after dividing it. It was wrapped in a papaverine soaked RayTec and replaced back into the left hemithorax. The RulTract was exchanged for a median sternal retractor. The innominate vein was isolated. Full
heparinization was given (a total of 95,000 units). We created a pericardial well. The aortic cannulation site was chosen where it was soft, pliable, and free of calcium. Cannulation was performed with an arterial cannula in the ascending aorta and
a triple-stage venous cannula through the right atrial appendage. The arterial cannula line had an appropriate bounce and correlating pressures with test dosing. Next, a root vent/antegrade cannula was inserted into the ascending aorta. The ACT was
confirmed to be over 400 and retrograde autologous priming was performed before commencing cardiopulmonary bypass. The pulmonary artery was away from the aorta to facilitate a clamp site. The aortic cross-clamp was placed after decreasing
the flow on the bypass and mean arterial pressure. A total of 1.2L initial dose of antegrade [place] cardioplegia solution was given and planned for re-dosing every 75 minutes as necessary. There was rapid electro-mechanical arrest of the heart at
280 cc of cardioplegia. The left ventricle was observed for distention on echocardiogram and manual palpation. Cold slush was placed into a sponge and topically on the RV while we systemically cooled to 34 degrees centigrade. Once the heart was
fully arrested it was rotated medially and the left atrial appendage clip was applied flush to the base. Manipulation here of his apex resulted in epicardial tears which was reinforced with suture.
I positioned the heart to expose the distal right coronary at the posterior descending artery. A [place] blade was used to expose the coronary and perform the arteriotomy. Coronary Fisher scissors were used to enlarge the incision. The saphenous vein
was trimmed and beveled to an appropriate size. The distal anastomosis was performed using 7-0 prolene in an end-to-side fashion. Antegrade cardioplegia was administered into the graft. Appropriate hemostasis and flow were confirmed. The graft was
measured for length to the aorta and cut. A suitable site on the first obtuse marginal was chosen. We dissected and prepared the distal target in a similar fashion. An end-to-side anastomosis was created with a 7-0 prolene. Antegrade cardioplegia
was administered into the graft. Appropriate hemostasis and flow were confirmed. The graft was measured for length to the aorta and cut. A suitable target in the diagonal vessel was then prepared in a similar fashion using a [place] blade. A small
coronary tree artery was created and end-to-side anastomosis with vein graft was performed using 7-0 Prolene. Test dose of antegrade demonstrated excellent mean flow and hemostasis. A suitable target on the mid/distal left anterior descending was
identified. We dissected and prepared the distal target in a similar fashion. We retrieved the MEDRANO from the chest and created a pericardial opening while being cognizant of the phrenic nerve to facilitate the course of the mammary. The distal end
of the mammary was prepped and beveled to size. We verified orientation and length of the LARY and found brisk flow. An end-to-side anastomosis was created with a 7-0 prolene. We temporarily released the bulldog clamp on the mammary to inspect flow.
Perfusion to the LAD territory was visualized and hemostasis was confirmed. The bull clamp was replaced on the mammary. The heart was filled and the root was distended with antegrade cardioplegia to make final assessment of graft length and
orientation. We created 3 aortotomies using a #11 blade then a 4.0mm aortic punch. The proximal anastomoses were created in an end-to-side fashion using 6-0 prolene. I was then notified by anesthesia that the ACT had fallen to the high 300s and so
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 I felt that the vein graft to the RPDA was a little bit short and so in order to
avoid tension, I took the proximal end of this graft off the proximal portion of the vein graft leading to the diagonal vessel. This was done with 7-0 Prolene in end-to-side fashion. I then repaired the aortotomy hole with 4-0 Prolene and then
reinforced with a pledgeted 4-0 Prolene mattress stitch. At the the same time, we re-warmed to 36.5 degrees centigrade. The bulldog clamp was removed from the mammary. Temporary bipolar ventricular pacing wires were placed on the base of the right
ventricle. The patient was placed in a Trendelenburg position and flows on bypass were lowered. The aortic cross clamp was removed and flows were slowly brought back up. All bypass grafts were inspected and were free from kinking or twisting. There
was some bright red blood that was welling up from the posterior aspect of the heart. I gently then manipulated the heart in order to expose the apex which had known tears and so this was reinforced with a superficial surgical sealant. Once
transesophageal echocardiography appeared satisfactory for de-airing, the flows were temporarily lowered for root vent removal. After verifying acceptable parameters, we initiated weaning from cardiopulmonary bypass. Once we were off cardiopulmonary
bypass, the venous cannula was clamped and removed. A test dose of protamine was administered and the patient was monitored for any adverse reaction before resuming protamine. Once half of the protamine dose was delivered, pump suckers were turned
off and the systolic blood pressure was lowered for aortic decannulation. The aortic cannula was removed and pursestrings were tied down. All cannulation sites were oversewn with a 4-0 prolene. There was a temporary spike in the blood pressure
which again resulted in bright red blood welling up from the posterior aspect of the heart. I elevated the apex and was able to identify bleeder off of the OM graft from the distal anastomosis which was reinforced with 7-0 Prolene to good effect.
The mammary bed was inspected and hemostasis was confirmed. Once the mediastinum was hemostatic, 19Fr Chris drain was placed in the left pleural cavity and two 24Fr Chris drains were placed within the pericardium. The sternum was approximated with 4
#7 single and 3 #8 double stainless steel wires. Fascia was approximated with #1 vicryl suture. The subcutaneous, dermis and epidermis were closed in layers in a running fashion. The skin wound was cleansed and dressed.
All instrument, sponge, and needle counts were confirmed to be correct x 2 at the end of the operation. The patient was transferred to the cardiac intensive care unit in critical but stable condition.
I, Dr. William Salter, was present, scrubbed for, and performed all critical elements of this procedure.
William Salter MD, MS
Cardiothoracic Surgeon
[facility]
This operative dictation was created using the Medcurrent dictation system. Please excuse any grammatical, typographical, or 'sound alike' errors
--- NOTE | 2025-02-19 16:40 | PN.DE.MGMTRT ---
Insulin Management
- -
02/19/2025: Diabetes Management Consult
77 year old male with PMH HTN, HLD, T2DM on insulin, admitted on 02/16. Patient presented to ED for substernal chest pressure and SOB due to NSTEMI. He underwent left heart catheterization which revealed MV CAD. Patient is Turkmen speaking and history
is obtained from his son who is at bedside. Son reports pts sugars have been higher and he has been trying to increase his physical activity.
Prior to admission was taking Metformin 850 mg BID, Glipizide 10mg twice daily, Toujeo 28 units @ HS and Ozempic 0.5mg SQ weekly. Use CGM Maximus 3, routinely follows up with PCP for diabetes care. A1C 7.8%, Cr 0.7, eGFR>60.
Patient was in the OR at the time of my visit. Patient to receive glycemic protocol insulin infusion s/p OR x48 hrs.
Will follow up tomorrow. Discussed with nurse.
Diabetes History
- -
Type of Diabetes: 2 requiring insulin
Pre-Admission Diabetes Regimen
Lab Results
Hemoglobin A1c 7.8 % (4.0-5.6) H 02/16/25 16:30
Insulin Pump Settings
IP Diabetes Regimen
02/18/25 02/19/25
22:09 09:46
POC Glucose 225 H 170 H
Meal type: Breakfast
Meal type: Dinner
Amount consumed: 100%
Patient Education
[2025-02-19 16:57] LABS: B.E. - POC 3.2 mmol/L; Glucose - POC 158 mg/dl (70-99); HCO3 - POC 27 mmol/L (21-28); Hematocrit - POC 31 % PCV (42-52); Hemodilution- POC Yes; Hemoglobin Calculated - POC 10.6; Ionized Calcium - POC 1.18 mmol/L (1.15-1.33); PCO2 - POC 39 mmHg (35-48); PO2 - POC 452 mmHg (83-108); POC Comment POST; Potassium - POC 4.3 mmol/L (3.5-5.1); Sodium - POC 148 mmol/L (136-145); Specimen Type - POC Arterial; pH - POC 7.46 (7.35-7.45)
--- NOTE | 2025-02-19 16:59 | W.PN.CARDCBS ---
Addendum entered and electronically signed by Ag Hardin MD 02/19/25 17:22:
I saw and examined the patient.
The STREET WORKER or PA's note was reviewed and I agree with the note.
Comment: Sedate
Neck: Supple, no JVD, HJR, carotids +2 B/L, no bruits bilaterally.
Heart: Non displaced PMI, RRR, no murmurs, No S3, S4, no rubs.
Lungs: Scattered rhonchi
Sternal dressings noted
Extremities: No clubbing, cyanosis or edema bilaterally.
Neuro: Sedate
He is seen immediately postop. He remains sedated and intubated. He is on no pressors. Blood pressure acceptable and in sinus rhythm. Discussed with CT surgery and nursing. Check postop ECG.
Original Note:
Today's Communication / Plan
-
Post-op ECG pending
Impression / Plan
-
PCP:Evan Greenfield
Card: None prior to admission
Impression:
Admitted with chest pain and NSTEMI 02/16/25
NSTEMI, peak Troponin 3.73
CAD s/p CABG 02/19/25
Chest pain/pressure
Elevated troponin
EKG with nonspecific ST abnormality
Diabetes mellitus on insulin
Hypertension
Hyperlipidemia
Echo 02/16/25: EF 55-60%, mild conc LVH, basal to mid anterior, inferior, anteroseptal and inferoseptal hypokinesis, no significant valve disease
Plan:
-Patient with NSTEMI on admission and cardiac cath showed MV CAD. Troponin peaked at 3.73.
-EF preserved on echo
-Patient is s/p CABG 02/19/25
-Post-op ECG is pending
HPI: 74-year-old male presents to ED for substernal chest pressure and shortness of breath since last night. Patient is Welsh speaking and history is obtained from his son who is at bedside. Past medical history hypertension, hyperlipidemia, type
2 diabetes on insulin. Son reports pts sugars have been higher and he has been trying to increase his physical activity. Last night on his nightly walk he ran for part of it. When he returned home he developed chest pressure. Went to bed and
slept through the night. When he woke up still had 4-5 out of 10 chest pressure and came to ED. Pressure does not radiate. He feels mildly short of breath. No diaphoresis, nausea, palpitations, lightheadedness. In ED EKG normal sinus rhythm
with nonspecific ST abnormality. Patient has received 3 sublingual nitroglycerin with relief of pain. Received 4 baby aspirin and started on heparin drip.
First troponin back at 0.6.
Progress Note - Membership Director
Subjective
Date of Service: February 19, 2025
Intubated and on the vent
Objective
Labs:
Labs
Hgb 11.1 g/dL (13.0-18.0) L 02/18/25 06:14
Hct 31.0 % (39.0-52.0) L 02/18/25 06:14
Plt Count 166 10^3/uL (130-400) 02/18/25 06:14
PT 13.5 Sec (11.4-14.6) 02/17/25 09:32
INR 1.00 02/17/25 09:32
APTT 89.9 Sec (23.4-35.0) H 02/19/25 05:46
Sodium 137 mmol/L (135-145) 02/17/25 01:11
Potassium 3.9 mmol/L (3.5-5.1) 02/17/25 01:11
BUN 22 mg/dl (9-20) H 02/17/25 01:11
Creatinine 0.7 mg/dL (0.7-1.3) 02/17/25 01:11
Glucose 156 mg/dl (70-99) H 02/17/25 01:11
Troponins
02/16/25 02/16/2525
16:30 18:08 19:30
Troponin I 1.520 H* D Cancelled 2.300 H* D
02/17/25 02/17/25 02/17/25
01:11 09:32 15:58
Troponin I 3.310 H* D 3.730 H* 3.380 H*
Vital Signs and I&O:
Vital Signs
Temp Pulse Resp BP Pulse Ox
97.8 F 62 16 92/59 97
02/19/25 09:50 02/19/25 10:02 02/19/25 09:50 02/19/25 10:02 02/19/25 09:50
Vital Signs
Temp Pulse Resp BP Pulse Ox
97.8 F 62 16 92/59 97
02/19/25 09:50 02/19/25 10:02 02/19/25 09:50 02/19/25 10:02 02/19/25 09:50
Intake & Output
02/17/25 02/18/25 02/19/25 02/20/25
06:59 06:59 06:59 06:59
Intake Total 200 / 200 520 / 520 226 / 226
Output Total 1050 / 1050 1300 / 1300 800 / 800
Balance -850 / -850 -780 / -780 -574 / -574
Physical Exam
Physical Exam
GEN: NAD, intubated and sedated
LUNGS: Intubated and on the ventilator.
CV: Reg
EXT: No edema
SKIN: No rash
[2025-02-19 17:03] LABS: B.E. -0.9 mmol/L; HCO3 23.5 mmol/L (21-28); Ionized Calcium 1.13 mMOL/L (1.15-1.33); O2 Saturation % 98.6 % (94-98); PCO2 37 mmHg (35-48); PO2 205 mmHg (83-108); Potassium 3.5 mMOL/L (3.5-5.1); Sodium 144 mMOL/L (136-145); pH 7.41 (7.35-7.45)
[2025-02-19 17:05] LABS: Glucose - Point of Care 141 mg/dl (70-99)
[2025-02-19 17:07] LABS: Mixed Venous O2 Saturation 79.8 %
[2025-02-19 17:16] LABS: Blood Urea Nitrogen 17 mg/dl (9-20); Estimated Creatinine Clearance 108 ml/min; Glucose 146 mg/dl (70-99); Magnesium 2.6 mg/dl (1.6-2.3)
--- NOTE | 2025-02-19 17:20 | PTCARENOTE ---
Pt received from CV[facility];Sedated and intubated; Pupils round, reactive, and equal; NS rhythm on monitor; VSS; Epicardial pacemaker present with pacer off; DP and radial pulses present; Lungs clear/diminished; ETT size 8 positioned and secured at 23 cm
right lip; Ventilator settings SIMV 14/500/5 FiO2 40%; CTx4 to -20 cm wall suction draining bloody drainage; mediastinal ct w/ minor air leak; Hypoactive BS; Cross catheter in place draining yellow clear urine; Groin puncture site CDI/Sternal
Midline Incision CDI/R Leg wrapped in [place] wrap - CDI; No Edema present; A-line in left radial artery - line zeroed and level; [place] present in right Cordis; PIVx2; Levo/insulin/precedex infusing; See nursing flowsheets for further details.
[2025-02-19 17:30] LABS: INR 1.32; PT 16.6 Sec (11.4-14.6)
[2025-02-19 17:31] LABS: APTT 37.2 Sec (23.4-35.0)
--- NOTE | 2025-02-19 17:35 | W.PN.UPDATE ---
Update Note
Progress Note Update
74-year-old male was admitted on 02/16/2025 with substernal chest pain and ruled in for NSTEMI. Left heart catheter reported two-vessel coronary disease.
Intake: 3300
Output: 2300
Blood:� 1PRBC
Wires:� 1 bipolar V-wire
Drips: Levophed @ 1, Cardene @ 2, Insulin @ 1, Precedex @ 0.5
�
NEURO: sedated, pupils +2mm B/L
RESP: #8OT @22cm> 500/60%/14/5. Lungs clear B/L. 2 mediastinal (0cc on arrival) and R/L pleural (0cc on arrival) chest tubes to -20cm suction. Sanguineous drainage in tubing, + intermittent air leak from, no crepitus
CV: RRR +S1, S2, no S3, no�rub, no murmur. Dermabond to median sternotomy. RIJ w/Slik intact
ABD: round, soft, no BS
EXT: no edema, +2/4 DP pulses B/L, no femoral bruit, RLE SHIELA wrap intact; left radial A-line intact
: Cross with clear yellow urine
�
A/P: POD #0 s/p CABG x 4 (In situ MEDRANO to LAD, Ao to RSVG to diagonal, Ao to RSVG to OM1, Ao to RSVG to RPDA), Left atrial appendage exclusion [35 mm device], administration of Recombinant AT3 / thrombate
BEVERLY: EF�60%, trace TR, mild MR
- wean and extubate
# CAD
- will require ASA, Plavix, statin, beta-aurora, Vasepa
�
# acute surgical blood loss anemia-expected
- trend CBC
�
# T2DM (A1C 7.8)
- insulin infusion x 48h
- Diabetic nurse practitioner consulted
- home regimen: MFM, Ozempic, Toujeo, glipizide
# BPH
- resume Finasteride prior to Cross removal if BP permits
�
[2025-02-19 17:38] LABS: Hematocrit 32.3 % (39.0-52.0); Hemoglobin 11.3 g/dL (13.0-18.0)
[2025-02-19 17:39] LABS: Platelet Count 119 10^3/uL (130-400)
[2025-02-19 18:13] LABS: Glucose - Point of Care 146 mg/dl (70-99)
[2025-02-19] MEDS: NOVOLOG FLEXPEN SC ×2 (18:36→19:45)
[2025-02-19] MEDS: NSS 500 IV (18:36)
[2025-02-19] MEDS: NEURONTIN PO ×2 (18:36→22:00)
[2025-02-19] MEDS: PACERONE PO ×2 (18:37→22:00)
[2025-02-19] MEDS: KCL 50 IV ×3 (18:40→22:36)
[2025-02-19] MEDS: CALCIUM GLUCONATE 100 IV (18:41)
[2025-02-19 19:07] LABS: Glucose - Point of Care 142 mg/dl (70-99)
[2025-02-19] MEDS: CRESTOR PO (19:46)
[2025-02-19] MEDS: CALCIUM GLUCONATE 130 MG IV (20:01)
[2025-02-19 20:12] LABS: Glucose - Point of Care 123 mg/dl (70-99)
--- NOTE | 2025-02-19 20:15 | PTCARENOTE ---
Received report from MARGI Bragg. Walking rounds done. Pt sedated, on vent. Hand off report with Precedex at 0.3 mcg/kg/hr. Decreased to 0.1 mcg/kg/hr per order Ed, PA. Pupils 2/pinpoint/sluggish. BBS present. Pt with #8 ETT, taped at 23 cm R lip. On
vent: SIMV, 40% FiO2. Rte 14, Peep 5, PS 5, TV 500. PIP 21. BBS present. Decreased B bases. Sats 100%. Audible heart tones. + pericardial rub. Pt in SR. BP supported on levophed. BP labile. Levo titrated to keep MAP > 65 and BP [id number]. See
flowsheet. V wire present, attached to temp PM. PM off. CTs x 4, all to -20 cm suction. CVP 7-8. LR at 100 mls/hr. L radial A line with pulsatile waveform. Belly soft, nontender. Hypoactive bs x 4. Cross draining clear, yellow urine. Hourly UO.
Hourly and prn CT output. For pulse and wound assessments, see flowsheets.
CaGluconate 3 GM IV given per order. Glycemic protocol maintained. Ongoing plan of care.
[2025-02-19 20:59] LABS: Hemoglobin 11.7 g/dL (13.0-18.0); Platelet Count 138 10^3/uL (130-400)
[2025-02-19 21:01] LABS: Glucose - Point of Care 107 mg/dl (70-99)
[2025-02-19 22:03] LABS: B.E. 0.5 mmol/L; HCO3 25.4 mmol/L (21-28); Ionized Calcium 1.36 mMOL/L (1.15-1.33); O2 Saturation % 98.3 % (94-98); PCO2 41 mmHg (35-48); PO2 159 mmHg (83-108); Potassium 3.9 mMOL/L (3.5-5.1)
[2025-02-19 22:10] LABS: Glucose - Point of Care 99 mg/dl (70-99)
--- NOTE | 2025-02-19 22:40 | RESPNOTE ---
PT extubated at this time and placed on a 6L n/c. Pt suctioned before and after and voiced name. I/S performed several time with a result of 1,200 mls. Vent was pulled and PT vitals are stable.
[2025-02-19] MEDS: LOW STRENGTH ASPIRIN 81 MG PO (22:41)
--- NOTE | 2025-02-19 23:05 | PTCARENOTE ---
Pt more awake at 2114. Pt speaks mainly Kinyarwanda. Son present to translate while weaning vent settings. Pt follows commands x 4 with equal strength. Nods head appropriately. Placed on CPAP at 2124. RR 10-14 br/min. Spont TV ex 400's. Pt extubated at
2239. Suctioned via ett x 1 prior to extubation for thin, white sputum. No stridor post extubation. BBS present. On 6L/NC, sats 100%. Post extubation, mouth care done. Orally suctioned x 2 for thick, white mucus. IS done with pt. Peak IS 1200 mls.
Levo gtt titrated off at 2234. KCL 20 meq repleted for K 3.9, per order PA. Dilaudid 0.25 mg IV given for 5/10 sternal pain at ~2300. Ongoing plan of care.
[2025-02-19] MEDS: ANCEF 5 IV (23:07)
[2025-02-19] MEDS: DILAUDID 0.25 MG IV (23:07)
[2025-02-20] VITALS (41 sets, daily range): BP systolic 79–133; BP diastolic 40–76; PULSE 72–80; O2SAT 94–95; BMI 22.2
[2025-02-20] MEDS: DILAUDID 0.5 MG IV (00:33)
[2025-02-20] MEDS: TYLENOL 1000 MG PO ×4 (00:35→23:15)
[2025-02-20 00:42] LABS: Glucose - Point of Care 89 mg/dl (70-99)
--- NOTE | 2025-02-20 00:45 | PTCARENOTE ---
Dilaudid 0.5 mg IV given for 710 sternal pain. Discussed with
[2025-02-20 02:27] LABS: Glucose - Point of Care 92 mg/dl (70-99)
[2025-02-20 03:40] LABS: Glucose - Point of Care 97 mg/dl (70-99)
[2025-02-20 03:41] LABS: Ionized Calcium 1.19 mMOL/L (1.15-1.33)
[2025-02-20 03:42] LABS: Hematocrit 28.9 % (39.0-52.0); Hemoglobin 10.2 g/dL (13.0-18.0); Mean Corp Hgb Conc. 35.3 g/dL (33.0-37.0); Mean Corpuscular Hgb 31.6 pg (27.0-31.0); Mean Corpuscular Volume 89.5 fL (80.0-94.0); Mean Platelet Volume 9.4 fL (7.4-10.4); Platelet Count 136 10^3/uL (130-400); Red Blood Cell Count 3.23 10^6/uL (4.70-6.10); Red Cell Dist. Width 12.8 % (11.5-14.5); White Blood Cell Count 14.1 10^3/uL (4.8-10.8)
--- NOTE | 2025-02-20 03:51 | W.PN.CT ---
Today's Communication / Plan
-
Plan:
-No major issues overnight. Hemodynamically and neurologically intact
-Successfully extubated last night 02/19/25 @ 2240
-Weaned off Levophed gtt and LR IV fluids last night, remains on insulin gtt per protocol
-No swan, u/o since OR 2079 mL
-Monitor chest tube output: 2meds 115/155, R/L pleurals 125/160. CXR looks clear on my review without ptx, f/u official report
-Cont. current meds (ASA, Plavix, Crestor, Amiodarone, Toprol XL)
-D/C'd SLIC and A-line this AM @ 0445
-Will maintain insulin gtt another day since pt is a diabetic, A1C 7.8, Diabetes education/management consult
-Will transfer to tele phase tomorrow when off insulin gtt
-Consider keeping huertas until mid-day vs tomorrow given hx of BP on finasteride @ home, to avoid complications of postop urinary retention
-Maintain temporary V-wire, will likely pull tomorrow
-Maintain cordis
-Encourage use of IS
-Wean off of O2 as tolerated
-OOB into chair/Ambulate
Assessment / Plan
-
Assessment:
-S/P Sternotomy/CABG x 4 (In situ MEDRANO to LAD, Ao to RSVG to diagonal, Ao to RSVG to OM1, Ao to RSVG to RPDA - this was taken off the proximal portion of the diagonal graft due to vein length)/R EVH/Left atrial appendage exclusion [35 mm device, SN
[id number]], by Dr. Salter, 02/19/25, pod#1
Assessment:
-Multivessel CAD
-NSTEMI (trop peaked @ 3.73)
-USA
-LVEF 50-55%, improved to 60% postop per intraop BEVERLY
-Mild-moderate MR
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
-HTN
-HLD
-T2DM (on insulin, A1C 7.8)
-BPH (on finasteride at home)
-Anemia preop
-S/P inguinal herniorrhaphy
-Intraop and postop blood loss Anemia/preop anemia (transfused 1u PRBC intraop)
-Acute postop thrombocytopenia (stable without active bleed)
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
-Acute postop atelectasis
-Acute postop hypovolemia with subsequent hypervolemia
Discussed patient care with: Cardiology, Nursing, Respiratory Therapy, Pharmacy and Care Team
Subjective
Procedure
S/P Sternotomy/CABG x 4 (In situ MEDRANO to LAD, Ao to RSVG to diagonal, Ao to RSVG to OM1, Ao to RSVG to RPDA - this was taken off the proximal portion of the diagonal graft due to vein length)/R EVH/Left atrial appendage exclusion [35 mm device, SN
[id number]], by Dr. Salter, 02/19/25
-
Date of Service: February 20, 2025
Pt c/o incisional pain, otherwise feels well
Objective Data
-
Lab Results
02/20/25 03:25
PT 16.6 Sec (11.4-14.6) H 02/19/25 16:53
INR 1.32 02/19/25 16:53
APTT 37.2 Sec (23.4-35.0) H 02/19/25 16:53
Vital Signs
Vital Signs
Temp Pulse Resp BP Pulse Ox
99 F 74 9 103/70 100
02/20/25 03:00 02/20/25 03:30 02/20/25 03:30 02/20/25 03:00 02/20/25 03:30
CT Intake/Output/Weight
02/19/25 02/19/25 02/20/25
06:59 18:59 06:59
Intake Total 226 / 226 27.5 / 658.8 631.3 / 658.8
Output Total 800 / 800 1425 / 2310 885 / 2310
Balance -574 / -574 -1397.5 / -1651.2 -253.7 / -1651.2
SaO2: 98 (2L)
Physical Exam
-
General: Awake, Oriented and AOx3
Cardiovascular: Regular rate & rhythm, No Murmurs, No Rub and No Gallop
Respiratory: Decreased Breath Sounds (at bases, otherwise clear)
Incision: Clean, Dry, Intact and Dressing Intact
Extremities: Other (+trace edema)
Data Reviewed
-
Lab Results: Results Reviewed
Medications: Active Meds Reviewed
Chest X-Ray: Report Reviewed and Image Reviewed
ECG: Report Reviewed and Image Reviewed
[2025-02-20 04:07] LABS: Blood Urea Nitrogen 21 mg/dl (9-20); Calcium 9.1 mg/dl (8.4-10.2); Carbon Dioxide 26 mmol/L (22-30); Chloride 114 mmol/L (98-107); Estimated Creatinine Clearance 92 ml/min; Glucose 89 mg/dl (70-99); Magnesium 2.2 mg/dl (1.6-2.3); Potassium 4.2 mmol/L (3.5-5.1); Sodium 145 mmol/L (135-145); eGFR > 60.00
[2025-02-20] MEDS: CALCIUM GLUCONATE 100 IV (04:24)
--- NOTE | 2025-02-20 04:45 | PTCARENOTE ---
Labs drawn and sent. EKG done and shown to PA. CXR done. PA with lab results. L radial A-line d/c'ed per CVICU protocol. SLIC cath d/c'ed per protocol. Cross remains per order.
[2025-02-20 05:53] LABS: Glucose - Point of Care 70 mg/dl (70-99)
[2025-02-20] MEDS: ANCEF 5 IV ×2 (06:37→13:35)
--- NOTE | 2025-02-20 06:45 | PTCARENOTE ---
Pt helped to sitting. C/O dizziness. Initial systolic BP 62. Pt helped to supine position. BP in supine position 86/70. Repeat BP 133 systolic, then 105 systolic. Bed weight obtained. Report given to Riley lorenz am. Walking rounds done. 0700 glucose
88.
--- NOTE | 2025-02-20 07:14 | W.PN.INTV ---
Today's Communication / Plan
Recommendations
Tolerated extubation
Wean FiO2
Wean norepinephrine
Continues on insulin drip per protocol
Monitor chest tube output
Remains in ICU while on insulin drip
Assessment
-
74-year-old Kinyarwanda speaking male with history of hypertension, hyperlipidemia and diabetes presented with substernal chest pain found to have multivessel CAD and underwent CABG-dish technician consulted for postoperative ventilator/critical care
management 02/19/25.
Multivessel CAD with preoperative preserved EF
Status post CABG-Dr. Salter
Mild [id number] 11.1
Hyperglycemia
Conditions present prior to admission:
Hypertension.
Hyperlipidemia.
Diabetes.
Hernia repair.
Plan
Tolerated extubation
Wean FiO2
Encourage incentive spirometry
Increase activity
Aspiration precautions
Pulmonary artery catheter and arterial line will be removed
Pressors have been weaned
Continue to monitor chest tube output
Follow hemoglobin
Continue to follow platelet count and coags
Transfuse blood product as needed
CT surgery following chest tubes as well
Follow blood sugar
Insulin Drip continues per protocol
Early nutrition
Early mobilization
DVT prophylaxis
Patient will be transferred to telemetry phase once off insulin which will likely be in the next 24 hours-subsequently pulmonary if respiratory issues arise
Reviewed the patient's pertinent medical records including radiographs, microbiology, laboratory evaluations, and discussion with primary team, and critical care nursing.
Diagnostic data:
Chest x-ray/-NAD
CT chest/-no acute disease in the chest
Echocardiogram 02/16/2025-EF 55-60%, basal to mid anterior inferior anteroseptal and inferoseptal hypokinesis, no significant valvular disease
Cardiac catheterization 02/16/25-multivessel CAD involving proximal LAD as well as 100% chronic total occlusion proximal RCA and mildly elevated LVEDP
Subjective Dataa
Subjective Data
Date of Service:
Date of Service: February 20, 2025
Chief Complaint: Farm Operator Follow Up, Pulmonary Follow Up and Vent Management Follow Up
Subjective:
Tolerated extubation, no complaints of shortness of breath or pain
Review of Systems
General: Other (Per HPI)
Objective Data
Data Reviewed
Vital Signs / I&O / Oxygen:
Vital Signs
Temp Pulse Resp BP Pulse Ox
99 F 70 18 91/63 100
02/20/25 05:00 02/20/25 07:00 02/20/25 07:00 02/20/25 07:00 02/20/25 07:00
Intake and Output
02/19/25 02/20/25 02/21/25
06:59 06:59 06:59
Intake Total 226 / 226 810.5 / 820.5 10 10
Output Total 800 / 800 2480 / 2520 40 / 40
Balance -574 / -574 -1669.5 / -1699.5 -30 / -30
SaO2 [CPAP] 40
SaO2 [SIMV] 100
SaO2 100
Nasal Cannula flow liters per 4
minute
Physical Exam
General: Respiratory Distress (n) and Comfortable
HEENT: Normocephalic, Anicteric and Moist Mucous Membranes
Respiratory: Crackles, Rhonchi, Non-Labored Respirations, Accessory Resp Muscle Use (n) and Chest Tube
GI: Soft, Non Distended and Non Tender
Neurology: Awake, Alert and No Motor Deficits
Skin: Good Color, Cyanosis (n) and Jaundice (n)
Labs/Micro/Reports
Lab Data
02/20/25 03:25
02/20/25 03:25
Laboratory Results
02/19/25 02/19/25
16:53 21:54
PT 16.6 H
INR 1.32
APTT 37.2 H
pH 7.41 7.40
pCO2 37 41
pO2 205 H 159 H
HCO3 23.5 25.4
O2 Delivery Level
[2025-02-20 07:16] LABS: Glucose - Point of Care 88 mg/dl (70-99)
--- NOTE | 2025-02-20 07:28 | PN.DE.MGMTRT ---
Insulin Management
- -
02/20/2025: Diabetes Management follow up
74 year old male with PMH HTN, HLD, T2DM on insulin, admitted on 02/16. Patient presented to ED for substernal chest pressure and SOB due to NSTEMI. He underwent left heart catheterization which revealed MV CAD. Patient is Sinhala speaking and history
is obtained from his son who is at bedside. Son reports pts sugars have been higher and he has been trying to increase his physical activity.
Prior to admission was taking Metformin 850 mg BID, Glipizide 10mg twice daily, Toujeo 28 units @ HS and Ozempic 0.5mg SQ weekly. Use CGM Maximus 3, routinely follows up with PCP for diabetes care. A1C 7.8%, Cr 0.7, eGFR>60.
Patient awake, alert, oriented, resting in bed, offers no complaints, son at bedside
Remains on the glycemic protocol insulin infusion, glucose range is 70 to 97, requiring 0.1 to 0.8 units of insulin/hr
Will cont same today and follow up tomorrow to assess readiness to transition off the drip.
Discussed with nurse.
Diabetes History
- -
Type of Diabetes: 2 requiring insulin
Pre-Admission Diabetes Regimen
02/19/25 02/20/25
16:53 03:25
Creatinine 0.6 L 0.7
Lab Results
Hemoglobin A1c 7.8 % (4.0-5.6) H 02/16/25 16:30
Insulin Pump Settings
IP Diabetes Regimen
02/19/25 02/19/25 02/19/25
09:46 16:53 18:12
Glucose 146 H
POC Glucose 170 H 141 H 146 H
02/19/25 02/19/25 02/19/25
19:04 20:10 21:00
Glucose
POC Glucose 142 H 123 H 107 H
02/19/25 02/20/25 02/20/25
22:08 00:41 02:25
Glucose
POC Glucose 99 89 92
02/20/25 02/20/25 02/20/25
03:25 03:39 05:52
Glucose 89
POC Glucose 97 70
02/20/25
07:13
Glucose
POC Glucose 88
Meal type: Dinner
Meal type: Dinner
Meal type: Breakfast
Patient Education
--- NOTE | 2025-02-20 08:30 | PTCARENOTE ---
Assumed care of patient at 0700. Pt Georgian speaking requiring cabinet and trim installer services. Pt is awake, alert, and oriented. Pt remains SR with HR 72. BP 89/60 MAP 70. Epicardial V wire in place, pacing box turned off. Pulse oximetry 95% on room air.
Encouraged use to IS. Mediastinal chest tubes x2 and left/right pleural chest tubes in place. Pt tolerating clear liquid diet. Cross catheter in place draining yellow urine, Cross care completed. Midsternal incision approximated and BLOSSOM. Right leg
incision with kirit wrap in place. Right groin incision approximated with surgical adhesive. Right IJ cordis in place with KVO. Pt remains on insulin gtt per glycemic protocol. Pt currently in bed with call villa within reach.
[2025-02-20 08:43] LABS: Glucose - Point of Care 99 mg/dl (70-99)
[2025-02-20] MEDS: NOVOLOG FLEXPEN SC ×3 (09:28→16:30)
[2025-02-20] MEDS: LIDOCAINE 4% PATCH TOPICAL (09:36)
[2025-02-20 10:04] LABS: Glucose - Point of Care 121 mg/dl (70-99)
[2025-02-20] MEDS: PLAVIX 75 MG PO (10:18)
[2025-02-20] MEDS: PROTONIX 40 MG PO (10:18)
[2025-02-20] MEDS: MAGNESIUM OXIDE 500 MG PO ×2 (10:18→19:29)
[2025-02-20] MEDS: FEOSOL 325 MG PO (10:18)
[2025-02-20] MEDS: NEURONTIN 100 MG PO ×3 (10:18→23:15)
[2025-02-20] MEDS: SENOKOT-S 1 TABLET PO ×2 (10:18→19:29)
[2025-02-20] MEDS: PACERONE 200 MG PO ×3 (10:18→23:15)
[2025-02-20] MEDS: CYMBALTA DELAYED RELEASE 30 MG PO (10:18)
[2025-02-20] MEDS: PROSCAR 5 MG PO (10:18)
[2025-02-20] MEDS: LOW STRENGTH ASPIRIN 81 MG PO (10:19)
[2025-02-20] MEDS: BACTROBAN 2% OINTMENT 1 APPLIC NASAL ×2 (10:19→19:30)
[2025-02-20] MEDS: RESTASIS 0.05% OPHTHALMIC EMULSION BOTH EYES (10:48)
--- NOTE | 2025-02-20 11:15 | PTCARENOTE ---
Cross catheter d/c'd pt due to void 164. Pt SR, HR 78. BP 91/60 MAP 70. Pulse oximetry 96% on room air.
[2025-02-20 12:24] LABS: B.E. - POC 3.4 mmol/L; Glucose - POC 132 mg/dl (70-99); HCO3 - POC 26 mmol/L (21-28); Hematocrit - POC 26 % PCV (42-52); Hemodilution- POC Yes; Hemoglobin Calculated - POC 8.9; Ionized Calcium - POC 1.29 mmol/L (1.15-1.33); Lactate - POC < 0.30 mmol/L (0.36-0.75); PCO2 - POC 32 mmHg (35-48); PO2 - POC 418 mmHg (83-108); POC Comment POST; Potassium - POC 4.1 mmol/L (3.5-5.1); Sodium - POC 147 mmol/L (136-145); Specimen Type - POC Arterial; pH - POC 7.52 (7.35-7.45)
[2025-02-20 12:37] LABS: Glucose - Point of Care 93 mg/dl (70-99)
[2025-02-20] MEDS: ROXICODONE 5 MG PO (12:44)
[2025-02-20] MEDS: NOVOLIN R INSULIN INFUSION 100 IV (13:06)
--- NOTE | 2025-02-20 13:49 | PTCARENOTE ---
Pleural chest tubes d/c'd per order. Pt assisted OOB to chair with 2 RN. Pt with reports of dizziness. Orthostatics completed, supine 95/55, sitting 88/55, standing 79/40. CT AUBRIE, Isela, made aware.
--- NOTE | 2025-02-20 13:55 | W.PN.CARDCBS ---
Today's Communication / Plan
-
RECOMMENDATIONS:
-Contiue aspirin and clopidogrel
-High intensity statin
-Rhythm stable will follow
Impression / Plan
-
PCP:Evan Greenfield
Card: None prior to admission
Impression:
Admitted with chest pain and NSTEMI 02/16/25:
NSTEMI, peak Troponin 3.73
Catheterization with multivessel CADz
CAD s/p CABG 02/19/25: MEDRANO-LAD, SVG-OM, SVG-D, SVG-from prox portion of [id number]
EKG with nonspecific ST abnormality
Diabetes mellitus on insulin
Hypertension
Hyperlipidemia
Echo 02/16/25: EF 55-60%, mild conc LVH, basal to mid anterior, inferior, anteroseptal and inferoseptal hypokinesis, no significant valve disease
Plan:
-Looks well. Sitting in chair eating. No complaints
-High intensity statin
-continue aspirin and clopidogrel
-Patient with NSTEMI on admission and cardiac cath showed MV CAD. Troponin peaked at 3.73.
-EF preserved on echo
HPI: 74-year-old male presents to ED for substernal chest pressure and shortness of breath since last night. Patient is Arabic speaking and history is obtained from his son who is at bedside. Past medical history hypertension, hyperlipidemia, type
2 diabetes on insulin. Son reports pts sugars have been higher and he has been trying to increase his physical activity. Last night on his nightly walk he ran for part of it. When he returned home he developed chest pressure. Went to bed and
slept through the night. When he woke up still had 4-5 out of 10 chest pressure and came to ED. Pressure does not radiate. He feels mildly short of breath. No diaphoresis, nausea, palpitations, lightheadedness. In ED EKG normal sinus rhythm
with nonspecific ST abnormality. Patient has received 3 sublingual nitroglycerin with relief of pain. Received 4 baby aspirin and started on heparin drip.
First troponin back at 0.6.
Progress Note - Investigative Assistant
Subjective
Date of Service: February 20, 2025
sitting in chair in NAD
Objective
Labs:
02/20/25 03:25
02/20/25 03:25
Labs
Hgb 10.2 g/dL (13.0-18.0) L 02/20/25 03:25
Hct 28.9 % (39.0-52.0) L 02/20/25 03:25
Plt Count 136 10^3/uL (130-400) 02/20/25 03:25
PT 16.6 Sec (11.4-14.6) H 02/19/25 16:53
INR 1.32 02/19/25 16:53
APTT 37.2 Sec (23.4-35.0) H 02/19/25 16:53
Sodium 145 mmol/L (135-145) 02/20/25 03:25
Potassium 4.2 mmol/L (3.5-5.1) 02/20/25 03:25
BUN 21 mg/dl (9-20) H 02/20/25 03:25
Creatinine 0.7 mg/dL (0.7-1.3) 02/20/25 03:25
Glucose 89 mg/dl (70-99) 02/20/25 03:25
Troponins
02/17/25
15:58
Troponin I 3.380 H*
Vital Signs and I&O:
Vital Signs
Temp Pulse Resp BP Pulse Ox
98.3 F 83 18 79/64 96
02/20/25 11:00 02/20/25 13:16 02/20/25 11:00 02/20/25 13:16 02/20/25 11:00
Vital Signs
Temp Pulse Resp BP Pulse Ox
98.3 F 83 18 79/64 96
02/20/25 11:00 02/20/25 13:16 02/20/25 11:00 02/20/25 13:16 02/20/25 11:00
Intake & Output
02/17/25 02/18/25 02/19/25 02/20/25
23:59 23:59 23:59 23:59
Intake Total 620 / 620 702.8 / 723.2 308.0 / 308.0
Output Total 600 / 600 700 / 700 2840 / 2930 730 / 730
Balance -600 / -600 -80 / -80 -2137.2 / -2206.8 -422.0 / -422.0
Physical Exam
Physical Exam
Gen: Awake, alert, interactive. NAD
Chest: sternum well approximated
Lungs: Diminished bases. Chest tube in place
CV: RRR with Normal S1 and S2.
Ext: no edema
[2025-02-20] MEDS: ProAmatine 5 MG PO (14:33)
[2025-02-20 14:34] LABS: Glucose - Point of Care 122 mg/dl (70-99)
[2025-02-20 16:11] LABS: Glucose - Point of Care 116 mg/dl (70-99)
--- NOTE | 2025-02-20 16:52 | W.PN.ANS.POP ---
Anesthesia Post Operative
- Anesthesia Post Op Note
Vital Signs Stable-See Nursing Note: Yes
Airway Patent: Yes
Adequate Pain Control: Yes
Change in Mental Status: No
Current Postoperative Nausea & Vomiting: No
Anesthesia Complications: No
General Anesthetic Recall: No
Unplanned Admission: No
Post Op Hydration Adequate: Yes
[2025-02-20] MEDS: CRESTOR 20 MG PO (17:33)
[2025-02-20] MEDS: NSS IV (17:33)
[2025-02-20 18:03] LABS: Glucose - Point of Care 104 mg/dl (70-99)
--- NOTE | 2025-02-20 19:00 | PTCARENOTE ---
Assumed care of patient at 1900. Patient found resting in bed at time of assessment. Patient is Aox4, follows commands appropriately, moves all extremities. 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 Lung sounds are clear and
equal, saO2 is 96%, CTx2 medsx2 draining to one atrium sanguineous with wall suction. Heart sounds are audible, patient is SR on the monitor, normal palpable pulses, no observable edema, there is a rub present on auscultation. Patient has active BS
throughout all four quadrants and is still DTV last bladder scan @1830 for 182cc urine. Patient has sternal incision approx with surg adhesive CUTTER OUT, ABD dressing over CT wounds that is CDI, R groin incision approx with surg adhesive CUTTER OUT, and RLE
incision approx with surg adhesive CUTTER OUT. Patient has R IJ cordis receiving KVO, R FA PIV and R AC PIV. Patient is on insulin gtt titrated per protocol. Patient given 250 cc 5% albumin per CT DISCIPLINARY HEARING OFFICER currently infusing. Call blel within reach.
[2025-02-20] MEDS: ALBUMIN 5% 250 IV (19:28)
[2025-02-20] MEDS: RESTASIS 0.05% OPHTHALMIC EMULSION 1 DROPS BOTH EYES (19:29)
[2025-02-20 20:05] LABS: Glucose - Point of Care 238 mg/dl (70-99)
[2025-02-20 21:06] LABS: Glucose - Point of Care 229 mg/dl (70-99)
[2025-02-20 22:41] LABS: Glucose - Point of Care 185 mg/dl (70-99)
[2025-02-20 23:30] LABS: Glucose - Point of Care 174 mg/dl (70-99)
[2025-02-21] VITALS (33 sets, daily range): BP systolic 88–139; BP diastolic 51–72; PULSE 67; O2SAT 93; BMI 22.7
--- NOTE | 2025-02-21 | PTCARENOTE ---
Patient reassessed. VSS. Utilized translation line to assess patient for pain or any complaints. Patient reported none. Remains SR with PACs on the monitor. Insulin gtt remains on. Patient successfully voided f/u bladder scan revealed 52cc post void
residual notified CT PA. Call villa within reach.
--- NOTE | 2025-02-21 00:20 | W.PN.CT ---
Today's Communication / Plan
-
Plan:
-No major issues overnight. Hemodynamically and neurologically intact
-Off all drips but insulin, will transition off/telemetry phase today
-BP has been soft postop, required dose of Midodrine yesterday. BB is currently on hold
-L pleural chest tube d/c'd yesterday, consider d/c of remaining chest tubes: 2 meds 125/265
-D/C (pull) temporary V-wire
-Cont. current meds (ASA, Plavix, Crestor, Amiodarone, Toprol XL- if BP permits)
-A1C 7.8, Diabetes education/management following
-Maintain cordis another day
-Encourage use of IS
-OOB into chair/Ambulate
-Home in 1-2 days
Assessment / Plan
-
Assessment:
-S/P Sternotomy/CABG x 4 (In situ MEDRANO to LAD, Ao to RSVG to diagonal, Ao to RSVG to OM1, Ao to RSVG to RPDA - this was taken off the proximal portion of the diagonal graft due to vein length)/R EVH/Left atrial appendage exclusion [35 mm device, SN
[id number]], by Dr. Salter, 02/19/25, pod#2
Assessment:
-Multivessel CAD
-NSTEMI (trop peaked @ 3.73)
-USA
-LVEF 50-55%, improved to 60% postop per intraop BEVERLY
-Mild-moderate MR
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
-HTN
-HLD
-T2DM (on insulin, A1C 7.8)
-BPH (on finasteride at home)
-Anemia preop
-S/P inguinal herniorrhaphy
-Intraop and postop blood loss Anemia/preop anemia (transfused 1u PRBC intraop)
-Acute postop thrombocytopenia (stable without active bleed)
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
-Acute postop atelectasis
-Acute postop hypovolemia with subsequent hypervolemia
Discussed patient care with: Cardiology, Nursing, Respiratory Therapy, Pharmacy and Care Team
Subjective
Procedure
S/P Sternotomy/CABG x 4 (In situ MEDRANO to LAD, Ao to RSVG to diagonal, Ao to RSVG to OM1, Ao to RSVG to RPDA - this was taken off the proximal portion of the diagonal graft due to vein length)/R EVH/Left atrial appendage exclusion [35 mm device, SN
[id number]], by Dr. Salter, 02/19/25
-
Date of Service: February 21, 2025
Pt c/o mild incisional pain, otherwise feels well
Objective Data
-
PT 16.6 Sec (11.4-14.6) H 02/19/25 16:53
INR 1.32 02/19/25 16:53
APTT 37.2 Sec (23.4-35.0) H 02/19/25 16:53
Vital Signs
Vital Signs
Temp Pulse Resp BP Pulse Ox
98.4 F 70 20 96/58 93
02/20/25 23:00 02/21/25 00:00 02/20/25 23:00 02/21/25 00:00 02/21/25 00:00
CT Intake/Output/Weight
02/20/25 02/20/25 02/21/25
06:59 18:59 06:59
Intake Total 783.0 / 820.8 129.5 / 442.9 313.4 / 442.9
Output Total 1055 / 2520 330 / 610 280 / 610
Balance -272.0 / -1699.2 -200.5 / -167.1 33.4 / -167.1
SaO2: 93 (RA)
Physical Exam
-
General: Awake, Oriented and AOx3
Cardiovascular: Regular rate & rhythm, No Murmurs, No Rub and No Gallop
Respiratory: Decreased Breath Sounds (at bases, otherwise clear)
Sternum: Stable
Incision: Clean, Dry, Intact and Dressing Intact
Extremities: No Edema
Data Reviewed
-
Lab Results: Results Reviewed
Medications: Active Meds Reviewed
Chest X-Ray: Report Reviewed and Image Reviewed
ECG: Report Reviewed and Image Reviewed
[2025-02-21 00:33] LABS: Glucose - Point of Care 130 mg/dl (70-99)
[2025-02-21 01:44] LABS: Glucose - Point of Care 103 mg/dl (70-99)
[2025-02-21 02:41] LABS: Glucose - Point of Care 110 mg/dl (70-99)
[2025-02-21 03:01] LABS: Hematocrit 24.5 % (39.0-52.0); Hemoglobin 8.7 g/dL (13.0-18.0); Mean Corp Hgb Conc. 35.5 g/dL (33.0-37.0); Mean Corpuscular Hgb 32.3 pg (27.0-31.0); Mean Corpuscular Volume 91.1 fL (80.0-94.0); Mean Platelet Volume 9.8 fL (7.4-10.4); Platelet Count 120 10^3/uL (130-400); Red Blood Cell Count 2.69 10^6/uL (4.70-6.10); Red Cell Dist. Width 13.2 % (11.5-14.5); White Blood Cell Count 9.2 10^3/uL (4.8-10.8)
[2025-02-21] MEDS: ROXICODONE 5 MG PO (03:09)
--- NOTE | 2025-02-21 03:15 | PTCARENOTE ---
Patient reassessed. AM labs obtained. Patient requested use of translation line and relayed to this RN that they were having some trouble breathing due to pain in back and chest. This RN educated patient that laying on back would still be painful in
presence of chest tubes but could be addressed via repositioning and medication. Patient was repositioned, placed on 2L via NC for comfort, and given Nupur 5mg for pain. VSS. Call villa within reach.
[2025-02-21 03:26] LABS: Blood Urea Nitrogen 32 mg/dl (9-20); Calcium 8.3 mg/dl (8.4-10.2); Carbon Dioxide 28 mmol/L (22-30); Chloride 104 mmol/L (98-107); Estimated Creatinine Clearance 82 ml/min; Glucose 98 mg/dl (70-99); Potassium 4.2 mmol/L (3.5-5.1); Sodium 138 mmol/L (135-145); eGFR > 60.00
[2025-02-21 03:46] LABS: Glucose - Point of Care 135 mg/dl (70-99)
[2025-02-21] MEDS: CALCIUM GLUCONATE 290 MG IV (06:01)
[2025-02-21 06:03] LABS: Glucose - Point of Care 106 mg/dl (70-99)
[2025-02-21] MEDS: TYLENOL 1000 MG PO ×3 (06:26→21:37)
--- NOTE | 2025-02-21 07:18 | W.PN.INTV ---
Today's Communication / Plan
Recommendations
monitor chest tube output
Midodrine as needed
Increase activity
Transition off insulin-subsequently transferred to telemetry-wildland fire fighter specialist will sign off-call pulmonary if respiratory issues arise
Assessment
-
74-year-old Chinese speaking male with history of hypertension, hyperlipidemia and diabetes presented with substernal chest pain found to have multivessel CAD and underwent CABG-wildland fire fighter specialist consulted for postoperative ventilator/critical care
management 02/19/25.
Multivessel CAD with preoperative preserved EF
Status post CABG-Dr. Salter
Mild [id number] 11.1
Hyperglycemia
Conditions present prior to admission:
Hypertension.
Hyperlipidemia.
Diabetes.
Hernia repair.
Plan
Respiratory hemodynamically stable
Wean FiO2
Continue to encourage incentive spirometry
Increase activity
Aspiration precautions
Pressors weaned
Midodrine as needed
Continue to monitor chest tube output
Follow hemoglobin
Continue to follow platelet count and coags
Transfuse blood product as needed
CT surgery following chest tubes as well-left pleural chest tube removed yesterday
Follow blood sugar
Insulin Drip continues per protocol-likely transition off today
Early nutrition
Early mobilization
DVT prophylaxis
Patient will be transferred to telemetry phase once off insulin which will likely be in the next 24 hours-subsequently pulmonary if respiratory issues arise
Reviewed the patient's pertinent medical records including radiographs, microbiology, laboratory evaluations, and discussion with primary team, and critical care nursing.
Diagnostic data:
Chest x-ray/-NAD
CT chest/-no acute disease in the chest
Echocardiogram 02/16/2025-EF 55-60%, basal to mid anterior inferior anteroseptal and inferoseptal hypokinesis, no significant valvular disease
Cardiac catheterization 02/16/25-multivessel CAD involving proximal LAD as well as 100% chronic total occlusion proximal RCA and mildly elevated LVEDP
Subjective Dataa
Subjective Data
Date of Service:
Date of Service: February 21, 2025
Chief Complaint: Customer Service Cashier Follow Up, Pulmonary Follow Up and Vent Management Follow Up
Subjective:
out of bed, no complaints of shortness of breath, pain controlled, chest tube drainage noted,
Review of Systems
General: Other ( Per HPI)
Objective Data
Data Reviewed
Vital Signs / I&O / Oxygen:
Vital Signs
Temp Pulse Resp BP Pulse Ox
98.2 F 74 18 95/58 98
02/21/25 03:43 02/21/25 06:00 02/21/25 03:43 02/21/25 05:00 02/21/25 05:30
Intake and Output
02/20/25 02/21/25 02/22/25
06:59 06:59 06:59
Intake Total 810.5 / 820.8 532.1 / 532.1
Output Total 2480 / 2520 825 / 825
Balance -1669.5 / -1699.2 -292.9 / -292.9
SaO2 [CPAP] 40
SaO2 [SIMV] 100
SaO2 98
Nasal Cannula flow liters per 2
minute
Physical Exam
General: Respiratory Distress (n) and Comfortable
HEENT: Normocephalic, Anicteric and Moist Mucous Membranes
Respiratory: Crackles, Rhonchi, Non-Labored Respirations, Accessory Resp Muscle Use (n) and Chest Tube
GI: Soft, Non Distended and Non Tender
Neurology: Awake, Alert and No Motor Deficits
Skin: Good Color, Cyanosis (n) and Jaundice (n)
Labs/Micro/Reports
Lab Data
02/21/25 02:48
02/21/25 02:48
--- NOTE | 2025-02-21 07:52 | PN.DE.MGMTRT ---
Insulin Management
- -
02/21/2025: Diabetes Management follow up
74 year old male with PMH HTN, HLD, T2DM on insulin, admitted on 02/16. Patient presented to ED for substernal chest pressure and SOB due to NSTEMI. He underwent left heart catheterization which revealed MV CAD. Patient is Upper Sorbian speaking and history
is obtained from his son who is at bedside. Son reports pts sugars have been higher and he has been trying to increase his physical activity.
Prior to admission was taking Metformin 850 mg BID, Glipizide 10mg twice daily, Toujeo 28 units @ HS and Ozempic 0.5mg SQ weekly. Use CGM Maximus 3, routinely follows up with PCP for diabetes care. A1C 7.8%, Cr 0.7, eGFR>60.
Patient awake, alert, oriented, sitting up in chair, offers no complaints.
Remains on the glycemic protocol insulin infusion, glucose range is 86 to 135 requiring 0.4 to 3 units of insulin/hr
Will transition off insulin infusion to SQ and oral regimen.
Give Lantus 12 units @ 1300, turn insulin drip off at 14:30. Resume Metformin at increased dose 1000mg BID and Glipizide at reduced dose 5 mg BID, 1st dose at dinner. Give reduced dose of Lantus @ HS 15 units. Will make further dose adjustments
tomorrow
Discussed with nurse.
Diabetes History
- -
Type of Diabetes: 2 requiring insulin
Pre-Admission Diabetes Regimen
02/21/25
02:48
Creatinine 0.8
Lab Results
Hemoglobin A1c 7.8 % (4.0-5.6) H 02/16/25 16:30
Insulin Pump Settings
IP Diabetes Regimen
02/20/25 02/20/25 02/20/25
08:41 10:03 12:35
Glucose
POC Glucose 99 121 H 93
02/20/25 02/20/25 02/20/25
14:32 16:05 18:02
Glucose
POC Glucose 122 H 116 H 104 H
02/20/25 02/20/25 02/20/25
20:03 21:02 22:38
Glucose
POC Glucose 238 H 229 H 185 H
02/20/25 02/21/25 02/21/25
23:20 00:29 01:32
Glucose
POC Glucose 174 H 130 H 103 H
02/21/25 02/21/25 02/21/25
02:37 02:48 03:45
Glucose 98
POC Glucose 110 H 135 H
02/21/25
06:01
Glucose
POC Glucose 106 H
Meal type: Breakfast
Amount consumed: 55%
Patient Education
[2025-02-21] MEDS: NEURONTIN 100 MG PO ×3 (07:54→21:40)
[2025-02-21] MEDS: LIDOCAINE 4% PATCH 1 PATCH TOPICAL (07:54)
[2025-02-21] MEDS: LOW STRENGTH ASPIRIN 81 MG PO (07:54)
[2025-02-21] MEDS: FEOSOL 325 MG PO (07:55)
[2025-02-21] MEDS: PROTONIX 40 MG PO (07:55)
[2025-02-21] MEDS: SENOKOT-S 1 TABLET PO ×2 (07:55→20:10)
[2025-02-21] MEDS: PROSCAR 5 MG PO (07:55)
[2025-02-21] MEDS: ProAmatine 5 MG PO ×3 (07:55→17:08)
[2025-02-21] MEDS: CYMBALTA DELAYED RELEASE 30 MG PO (07:55)
[2025-02-21] MEDS: PACERONE 200 MG PO ×3 (07:55→21:37)
[2025-02-21] MEDS: PLAVIX 75 MG PO (07:55)
[2025-02-21] MEDS: RESTASIS 0.05% OPHTHALMIC EMULSION 1 DROPS BOTH EYES ×2 (07:56→20:10)
[2025-02-21] MEDS: MAGNESIUM OXIDE 500 MG PO ×2 (07:56→20:10)
[2025-02-21] MEDS: BACTROBAN 2% OINTMENT 1 APPLIC NASAL ×2 (07:56→20:10)
--- NOTE | 2025-02-21 08:00 | PTCARENOTE ---
received report from previous RN at change of shift. utilized ipad motor vehicle technician to communicate with patient in ukrainian. Pt AAOX3. reports mild sternal incisional pain- 3/10. Pt OOB in chair, resting comfortably. SR on telemetry heart rate 60-70s.
pulses palpable. trace edema. v wire intact, off. pt on room air, sat 95%. lung sounds clear, diminished in bases. pt reports has not had bowel movement in 7 days, PA notified. voiding in urinal. surgical sites CDI. 2 mediastinal chest tubes to -20
suction with serosanguineous drainage. pt updated on plan of care. see worklist for full nursing assessment and interventions.
[2025-02-21 08:26] LABS: Glucose - Point of Care 86 mg/dl (70-99)
--- NOTE | 2025-02-21 08:30 | PTCARENOTE ---
pt vomited 250 ml green fluid. prn zofran given. PA notified, order received for reglan and PO dulcolax. pt brushed teeth and face washed.
[2025-02-21] MEDS: ZOFRAN 4 MG IV (08:36)
[2025-02-21 08:48] LABS: Glucose - Point of Care 86 mg/dl (70-99)
[2025-02-21] MEDS: REGLAN 10 MG IV ×3 (09:23→21:40)
[2025-02-21] MEDS: DULCOLAX 10 MG PO (09:23)
[2025-02-21 10:13] LABS: Glucose - Point of Care 132 mg/dl (70-99)
[2025-02-21] MEDS: NOVOLOG FLEXPEN 4 UNITS SC ×2 (10:15→13:38)
--- NOTE | 2025-02-21 12:00 | PTCARENOTE ---
pt resting comfortably OOB in chair. nausea improved. tolerated breakfast. pt ambulated with cardiac rehab, standby assist. no changes in assessment noted.
[2025-02-21 12:14] LABS: Glucose - Point of Care 162 mg/dl (70-99)
--- NOTE | 2025-02-21 12:41 | CM ---
CM following for DC planning needs.
Pt. is POD#[address] Surgery[address]
Reviewed initial assessment. Pt. resides w/ son and daughter in law in a private, 2 [address] w/ 0 [facility]. Functionally, patient is indep. w/ ADLs, mobility without the use of any assisted device.
Reviewed Cardiac Rehab notes, patient ambulating well.
DC plan is for home w/ CT Transitional Care RN.
[2025-02-21] MEDS: LANTUS 0.12 UNITS SC (13:27)
[2025-02-21 13:28] LABS: Glucose - Point of Care 147 mg/dl (70-99)
--- NOTE | 2025-02-21 13:30 | PTCARENOTE ---
mediastinal chest tubes dced per orders without difficulty, pt tolerated well. pt given lantus and insulin gtt to be dced in 1 hour.
--- NOTE | 2025-02-21 14:40 | PTCARENOTE ---
pt ate lunch, denies nausea. pt ambulated in cooley. insulin gtt dced per orders. no further changes in assessment noted
[2025-02-21] MEDS: NSS 500 IV (15:14)
--- NOTE | 2025-02-21 17:03 | W.PN.CARDCBS ---
Today's Communication / Plan
-
Postop care
Impression / Plan
-
PCP:Evan Greenfield
Card: None prior to admission
Impression:
Admitted with chest pain and NSTEMI 02/16/25:
NSTEMI, peak Troponin 3.73
Catheterization with multivessel CADz
CAD s/p CABG 02/19/25: MEDRANO-LAD, SVG-OM, SVG-D, SVG-from prox portion of [id number]-GLF
EKG with nonspecific ST abnormality
Diabetes mellitus on insulin
Hypertension
Hyperlipidemia
Echo 02/16/25: EF 55-60%, mild conc LVH, basal to mid anterior, inferior, anteroseptal and inferoseptal hypokinesis, no significant valve disease
Plan:
-Patient with NSTEMI on admission and cardiac cath showed MV CAD. Troponin peaked at 3.73. Now s/p CABG.
-Out of bed to chair resting comfortably and no cardiac complaints
-Appears euvolemic on exam
-Maintaining sinus rhythm on telemetry
-Continue aspirin/clopidogrel and high intensity statin
-Beta-aurora as heart rate/blood pressure tolerates
-EF preserved on echo
- Eventual cardiac rehab
Discussed with patient's son at bedside
HPI: 74-year-old male presents to ED for substernal chest pressure and shortness of breath since last night. Patient is Irish speaking and history is obtained from his son who is at bedside. Past medical history hypertension, hyperlipidemia, type
2 diabetes on insulin. Son reports pts sugars have been higher and he has been trying to increase his physical activity. Last night on his nightly walk he ran for part of it. When he returned home he developed chest pressure. Went to bed and
slept through the night. When he woke up still had 4-5 out of 10 chest pressure and came to ED. Pressure does not radiate. He feels mildly short of breath. No diaphoresis, nausea, palpitations, lightheadedness. In ED EKG normal sinus rhythm
with nonspecific ST abnormality. Patient has received 3 sublingual nitroglycerin with relief of pain. Received 4 baby aspirin and started on heparin drip.
First troponin back at 0.6.
Progress Note - Carpenter'S Assistant
Subjective
Date of Service: February 21, 2025
No acute overnight events. No cardiac complaints today.
Objective
Labs:
02/21/25 02:48
02/21/25 02:48
Labs
Hgb 8.7 g/dL (13.0-18.0) L 02/21/25 02:48
Hct 24.5 % (39.0-52.0) L 02/21/25 02:48
Plt Count 120 10^3/uL (130-400) L 02/21/25 02:48
PT 16.6 Sec (11.4-14.6) H 02/19/25 16:53
INR 1.32 02/19/25 16:53
APTT 37.2 Sec (23.4-35.0) H 02/19/25 16:53
Sodium 138 mmol/L (135-145) 02/21/25 02:48
Potassium 4.2 mmol/L (3.5-5.1) 02/21/25 02:48
BUN 32 mg/dl (9-20) H 02/21/25 02:48
Creatinine 0.8 mg/dL (0.7-1.3) 02/21/25 02:48
Glucose 98 mg/dl (70-99) 02/21/25 02:48
Vital Signs and I&O:
Vital Signs
Temp Pulse Resp BP Pulse Ox
98.2 F 71 16 101/63 96
02/21/25 16:13 02/21/25 16:13 02/21/25 16:13 02/21/25 16:00 02/21/25 16:13
Vital Signs
Temp Pulse Resp BP Pulse Ox
98.2 F 71 16 101/63 96
02/21/25 16:13 02/21/25 16:13 02/21/25 16:13 02/21/25 16:00 02/21/25 16:13
Intake & Output
02/19/25 02/20/25 02/21/25 02/22/25
06:59 06:59 06:59 06:59
Intake Total 226 / 226 810.5 / 820.8 532.1 / 545.1 108.6 / 108.6
Output Total 800 / 800 2480 / 2520 825 / 885 580 / 580
Balance -574 / -574 -1669.5 / -1699.2 -292.9 / -339.9 -471.4 / -471.4
Physical Exam
Physical Exam
Gen: NAD, AA
HEENT: NC/AT, sclera anicteric
Neck: No JVD
CV: RRR, NL s1/s2
Lungs: CTAB
Abd: S/ND
Ext: No LE edema
Skin: Warm, dry, sternotomy clean dry intact
Neuro: Non-focal
[2025-02-21] MEDS: GLUCOPHAGE 1000 MG PO (17:07)
[2025-02-21 17:08] LABS: Glucose - Point of Care 231 mg/dl (70-99)
[2025-02-21] MEDS: GLUCOTROL 5 MG PO (17:08)
[2025-02-21] MEDS: CRESTOR 20 MG PO (17:08)
[2025-02-21] MEDS: NOVOLOG FLEXPEN-MODERATE RESISTANCE 3 UNITS SC (17:08)
--- NOTE | 2025-02-21 20:00 | PTCARENOTE ---
Pt received awake alert and oriented. Used cargo supervisor for communicating with pt. Denies pain. Ambulated in hallway. Assessment as charted.
[2025-02-21 21:36] LABS: Glucose - Point of Care 265 mg/dl (70-99)
[2025-02-21] MEDS: LANTUS 0.15 UNITS SC (21:37)
[2025-02-22] VITALS (10 sets, daily range): BP systolic 99–141; BP diastolic 56–83; PULSE 71; O2SAT 96–98; BMI 22.7
[2025-02-22] MEDS: REGLAN 10 MG IV ×4 (03:36→21:26)
[2025-02-22 04:50] LABS: Hematocrit 25.7 % (39.0-52.0); Hemoglobin 8.7 g/dL (13.0-18.0); Mean Corp Hgb Conc. 33.9 g/dL (33.0-37.0); Mean Corpuscular Volume 91.5 fL (80.0-94.0); Mean Platelet Volume 9.6 fL (7.4-10.4); Platelet Count 125 10^3/uL (130-400); Red Blood Cell Count 2.81 10^6/uL (4.70-6.10); Red Cell Dist. Width 12.8 % (11.5-14.5); White Blood Cell Count 8.8 10^3/uL (4.8-10.8)
[2025-02-22 05:14] LABS: Blood Urea Nitrogen 25 mg/dl (9-20); Calcium 8.6 mg/dl (8.4-10.2); Carbon Dioxide 30 mmol/L (22-30); Chloride 103 mmol/L (98-107); Estimated Creatinine Clearance 84 ml/min; Glucose 193 mg/dl (70-99); Potassium 4.4 mmol/L (3.5-5.1); Sodium 137 mmol/L (135-145); eGFR > 60.00
[2025-02-22] MEDS: TYLENOL 1000 MG PO ×3 (05:53→21:25)
--- NOTE | 2025-02-22 06:00 | PTCARENOTE ---
No change in assessment.
--- NOTE | 2025-02-22 06:12 | W.PN.CT ---
Today's Communication / Plan
-
-pod #3
-doing well, no issues overnight
-weaned off O2- pOx 97% on RA
-hg 8.7 today (8.7 pm 02/21 and 10.2 on 02/20)
-on Midodrine for low BPs 90s-low 100s. Holding Topro;
-current meds (ASA, Plavix, Crestor, Amio, Feosol, Midodrine, Protonix, Reglan)
-encourage IS, OOB, ambulate
Assessment / Plan
-
Assessment:
-S/P Sternotomy/CABG x 4 (In situ MEDRANO to LAD, Ao to RSVG to diagonal, Ao to RSVG to OM1, Ao to RSVG to RPDA - this was taken off the proximal portion of the diagonal graft due to vein length)/R EVH/Left atrial appendage exclusion [35 mm device, SN
[id number]], by Dr. Salter, 02/19/25, pod#3
Assessment:
-Multivessel CAD
-NSTEMI (trop peaked @ 3.73)
-USA
-LVEF 50-55%, improved to 60% postop per intraop BEVERLY
-Mild-moderate MR
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
-HTN
-HLD
-T2DM (on insulin, A1C 7.8)
-BPH (on finasteride at home)
-Anemia preop
-S/P inguinal herniorrhaphy
-Intraop and postop blood loss Anemia/preop anemia (transfused 1u PRBC intraop)
-Acute postop thrombocytopenia (stable without active bleed)
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
-Acute postop atelectasis
-Acute postop hypovolemia with subsequent hypervolemia
Discussed patient care with: Nursing and Care Team
Subjective
Procedure
S/P Sternotomy/CABG x 4 (In situ MEDRANO to LAD, Ao to RSVG to diagonal, Ao to RSVG to OM1, Ao to RSVG to RPDA - this was taken off the proximal portion of the diagonal graft due to vein length)/R EVH/Left atrial appendage exclusion [35 mm device, SN
[id number]], by Dr. Salter, 02/19/25
-
Date of Service: February 22, 2025
Objective Data
-
Lab Results
02/22/25 04:19
02/22/25 04:19
PT 16.6 Sec (11.4-14.6) H 02/19/25 16:53
INR 1.32 02/19/25 16:53
APTT 37.2 Sec (23.4-35.0) H 02/19/25 16:53
Vital Signs
Vital Signs
Temp Pulse Resp BP Pulse Ox
98.4 F 74 18 99/58 97
02/22/25 04:00 02/22/25 04:14 02/22/25 04:00 02/22/25 04:14 02/22/25 04:00
CT Intake/Output/Weight
02/21/25 02/21/25 02/22/25
06:59 18:59 06:59
Intake Total 402.6 / 545.1 108.6 / 528.6 420 / 528.6
Output Total 495 / 885 1029 / 2029 999 / 2029
Balance -92.4 / -339.9 -921.4 / -1501.4 -580 / -1501.4
SaO2: 97
Physical Exam
-
General: Awake and AOx3
Cardiovascular: Regular rate & rhythm, No Murmurs and No Rub
Respiratory: Decreased Breath Sounds
Sternum: Stable
Incision: Clean, Dry and Intact
Extremities: No Edema (2+ DPs b/l)
Abdomen: soft, nondistended, + bowel sounds
Data Reviewed
-
Lab Results: Results Reviewed
Medications: Active Meds Reviewed
Chest X-Ray: Report Reviewed and Image Reviewed
ECG: Report Reviewed and Image Reviewed
[2025-02-22 08:15] LABS: Glucose - Point of Care 223 mg/dl (70-99)
--- NOTE | 2025-02-22 08:16 | PN.DE.MGMTRT ---
Insulin Management
- -
02/22/2025: Diabetes Management follow up
74 year old male with PMH HTN, HLD, T2DM on insulin, admitted on 02/16. Patient presented to ED for substernal chest pressure and SOB due to NSTEMI. He underwent left heart catheterization which revealed MV CAD. Patient is Kiswahili speaking and history
is obtained from his son who is at bedside. Son reports pts sugars have been higher and he has been trying to increase his physical activity.
Prior to admission was taking Metformin 850 mg BID, Glipizide 10mg twice daily, Toujeo 28 units @ HS and Ozempic 0.5mg SQ weekly. Use CGM Maximus 3, routinely follows up with PCP for diabetes care. A1C 7.8%, Cr 0.7, eGFR>60.
Patient awake, alert, oriented, offers no complaints. and son at bedside, able to discuss diabetes plan of care
POD # 3, s/p CABG x4. Transitioned off glycemic protocol yesterday afternoon. Glucose has remained elevated since transitioning off drip
02/21 Pre-dinner 231, HS 265, pt received 15 units of Lantus, FBG 193 this AM.
Will add Farxiga 10 mg daily, 1st dose NOW. Will increase Lantus to 20 units and Glipizide to 10mg BID.
Cont Metformin 1000 mg BID and low corrective with meals.
Will cont to follow make further dose adjustments if necessary
Discussed with nurse.
Diabetes History
- -
Type of Diabetes: 2 requiring insulin
Pre-Admission Diabetes Regimen
02/22/25
04:19
Creatinine 0.8
Lab Results
Hemoglobin A1c 7.8 % (4.0-5.6) H 02/16/25 16:30
Insulin Pump Settings
IP Diabetes Regimen
02/21/25 02/21/25 02/21/25
07:59 08:29 10:12
Glucose
POC Glucose 86 86 132 H
02/21/25 02/21/25 02/21/25
12:13 13:26 17:07
Glucose
POC Glucose 162 H 147 H 231 H
02/21/25 02/22/25 02/22/25
21:34 04:19 08:13
Glucose 193 H
POC Glucose 265 H 223 H
Patient Education
[2025-02-22] MEDS: LOW STRENGTH ASPIRIN 81 MG PO (08:20)
[2025-02-22] MEDS: GLUCOPHAGE 1000 MG PO ×2 (08:20→16:32)
[2025-02-22] MEDS: ProAmatine 5 MG PO ×3 (08:20→16:32)
[2025-02-22] MEDS: PLAVIX 75 MG PO (08:21)
[2025-02-22] MEDS: RESTASIS 0.05% OPHTHALMIC EMULSION 1 DROPS BOTH EYES ×2 (08:21→22:46)
[2025-02-22] MEDS: PROSCAR 5 MG PO (08:21)
[2025-02-22] MEDS: PROTONIX 40 MG PO (08:21)
[2025-02-22] MEDS: NEURONTIN 100 MG PO ×3 (08:21→21:25)
[2025-02-22] MEDS: SENOKOT-S 1 TABLET PO ×2 (08:21→21:25)
[2025-02-22] MEDS: FEOSOL 325 MG PO (08:21)
[2025-02-22] MEDS: MAGNESIUM OXIDE 500 MG PO ×2 (08:21→21:26)
[2025-02-22] MEDS: GLUCOTROL 5 MG PO ×2 (08:21→09:45)
[2025-02-22] MEDS: PACERONE 200 MG PO ×3 (08:21→21:33)
[2025-02-22] MEDS: CYMBALTA DELAYED RELEASE 30 MG PO (08:21)
[2025-02-22] MEDS: BACTROBAN 2% OINTMENT 1 APPLIC NASAL ×2 (08:22→21:25)
[2025-02-22] MEDS: NOVOLOG FLEXPEN-MODERATE RESISTANCE 3 UNITS SC (08:22)
[2025-02-22] MEDS: LIDOCAINE 4% PATCH 1 PATCH TOPICAL (08:22)
[2025-02-22] MEDS: MIRALAX 17 GRAMS PO (09:45)
[2025-02-22] MEDS: FARXIGA 10 MG PO (09:45)
--- NOTE | 2025-02-22 09:59 | PTCARENOTE ---
received report from previous RN. Pt resting comfortably OOB in chair. pt ambulating in room with standby assist. used online publisher to communicate with patient. Pt AAOX3. reports mild sternal incisional pain. pt reports still has not had bowel
movement. SR on telemetry heart rate in 70s. pulses palpable, no edema. pt on room air, sat 95%. lung sounds clear, diminished in bases. active bowel sounds, denies nausea. voiding in urinal without difficulty. surgical sites CORRECTIONAL MAINTENANCE TECHNICIAN with surgical
adhesive. see worklist for full nursing assessment and interventions.
--- NOTE | 2025-02-22 10:55 | CM ---
CM following for DC planning needs.
Pt. is POD#[address] Surg, doing well.
Met w/ patient + several family members at bedside.
Will cont. to follow for DC planning. Antic. home w/ CT Transitional Care RN once stable.
--- NOTE | 2025-02-22 12:00 | PTCARENOTE ---
pt resting comfortably OOB in chair. pt ambulated in cooley independently. cordis removed per orders. no further changes in assessment noted.
[2025-02-22 12:04] LABS: Glucose - Point of Care 163 mg/dl (70-99)
[2025-02-22] MEDS: NOVOLOG FLEXPEN-MODERATE RESISTANCE 1 UNITS SC ×2 (12:06→16:33)
[2025-02-22] MEDS: MILK OF MAGNESIA 30 ML PO (13:51)
--- NOTE | 2025-02-22 16:00 | PTCARENOTE ---
no changes in assessment noted.
[2025-02-22] MEDS: CRESTOR 20 MG PO (16:32)
[2025-02-22 16:33] LABS: Glucose - Point of Care 181 mg/dl (70-99)
[2025-02-22] MEDS: GLUCOTROL 10 MG PO (16:33)
[2025-02-22] MEDS: NSS IV (17:34)
--- NOTE | 2025-02-22 17:39 | W.PN.CARDCBS ---
Today's Communication / Plan
-
Supportive postop care
Anticipate discharge home tomorrow
Impression / Plan
-
PCP:Evan Greenfield
Card: None prior to admission
Impression:
Admitted with chest pain and NSTEMI 02/16/25:
NSTEMI, peak Troponin 3.73
Catheterization with multivessel CADz
CAD s/p CABG 02/19/25: MEDRANO-LAD, SVG-OM, SVG-D, SVG-from prox portion of [id number]
EKG with nonspecific ST abnormality
Diabetes mellitus on insulin
Hypertension
Hyperlipidemia
Echo 02/16/25: EF 55-60%, mild conc LVH, basal to mid anterior, inferior, anteroseptal and inferoseptal hypokinesis, no significant valve disease
Plan:
-S/P Sternotomy/CABG x 4 (In situ MEDRANO to LAD, Ao to RSVG to diagonal, Ao to RSVG to OM1, Ao to RSVG to RPDA - this was taken off the proximal portion of the diagonal graft due to vein length)/R EVH/Left atrial appendage exclusion [35 mm device, SN
[id number]], by Dr. Salter, 02/19/25, pod#3
-Presented with non-STEMI, peak troponin 3.73
- Doing well postop with stable hemodynamics
-Appears euvolemic on exam
-Maintaining sinus rhythm on telemetry
-Continue aspirin/clopidogrel given presenting non-STEMI
-High intensity statin; goal LDL less than 70 mg/dL
-Diabetic nurse practitioner consult reviewed and agree with adding Farxiga with intensification of therapy with goal normoglycemia
-EF preserved on echo
- Eventual cardiac rehab
Discussed with patient's son at bedside
HPI: 74-year-old male presents to ED for substernal chest pressure and shortness of breath since last night. Patient is Nepali speaking and history is obtained from his son who is at bedside. Past medical history hypertension, hyperlipidemia, type
2 diabetes on insulin. Son reports pts sugars have been higher and he has been trying to increase his physical activity. Last night on his nightly walk he ran for part of it. When he returned home he developed chest pressure. Went to bed and
slept through the night. When he woke up still had 4-5 out of 10 chest pressure and came to ED. Pressure does not radiate. He feels mildly short of breath. No diaphoresis, nausea, palpitations, lightheadedness. In ED EKG normal sinus rhythm
with nonspecific ST abnormality. Patient has received 3 sublingual nitroglycerin with relief of pain. Received 4 baby aspirin and started on heparin drip.
First troponin back at 0.6.
Progress Note - [employer]
Subjective
Date of Service: February 22, 2025
Patient seen and examined with family at bedside. Chart/telemetry reviewed. Offers no symptoms.
Objective
Labs:
02/22/25 04:19
02/22/25 04:19
Labs
Hgb 8.7 g/dL (13.0-18.0) L 02/22/25 04:19
Hct 25.7 % (39.0-52.0) L 02/22/25 04:19
Plt Count 125 10^3/uL (130-400) L 02/22/25 04:19
PT 16.6 Sec (11.4-14.6) H 02/19/25 16:53
INR 1.32 02/19/25 16:53
APTT 37.2 Sec (23.4-35.0) H 02/19/25 16:53
Sodium 137 mmol/L (135-145) 02/22/25 04:19
Potassium 4.4 mmol/L (3.5-5.1) 02/22/25 04:19
BUN 25 mg/dl (9-20) H 02/22/25 04:19
Creatinine 0.8 mg/dL (0.7-1.3) 02/22/25 04:19
Glucose 193 mg/dl (70-99) H 02/22/25 04:19
Vital Signs and I&O:
Vital Signs
Temp Pulse Resp BP Pulse Ox
98.1 F 77 16 105/61 94
02/22/25 15:59 02/22/25 16:32 02/22/25 15:59 02/22/25 16:32 02/22/25 15:59
Vital Signs
Temp Pulse Resp BP Pulse Ox
98.1 F 77 16 105/61 94
02/22/25 15:59 02/22/25 16:32 02/22/25 15:59 02/22/25 16:32 02/22/25 15:59
Intake & Output
02/20/25 02/21/25 02/22/25 02/23/25
06:59 06:59 06:59 06:59
Intake Total 810.5 / 820.8 532.1 / 545.1 528.6 / 528.6 500 / 500
Output Total 2480 / 2520 825 / 885 2030 / 2030 200 / 200
Balance -1669.5 / -1699.2 -292.9 / -339.9 -1501.4 / -1501.4 300 / 300
Physical Exam
Physical Exam
Gen: Awake, alert, interactive. NAD
Chest: sternum well approximated
Lungs: Diminished bases but clear
CV: RRR with Normal S1 and S2.
Ext: no edema
[2025-02-22] MEDS: CITROMA 300 ML PO (18:11)
--- NOTE | 2025-02-22 20:13 | PTCARENOTE ---
Assumed care of pt at 1900. Pt is primarily Ukrainian speaking, translation services provided via iPad. Pt is A/O x4. No c/o pain at this time. SR 80s on monitor. Sternal incisions and 3 incisions to RLE are C/D/I with surgical glue present, ecchymosis
surrounding incisions. Physical assessment as documented in nursing shift assessment flowsheet. Call villa and personal items within reach.
[2025-02-22 22:15] LABS: Glucose - Point of Care 211 mg/dl (70-99)
[2025-02-22] MEDS: LANTUS 0.2 UNITS SC (22:46)
[2025-02-23 02:59] VITALS: BP 122/70
[2025-02-23 03:10] VITALS: BMI 22.7
[2025-02-23 03:52] LABS: Hematocrit 26.8 % (39.0-52.0); Hemoglobin 9.5 g/dL (13.0-18.0); Mean Corp Hgb Conc. 35.4 g/dL (33.0-37.0); Mean Corpuscular Hgb 32.3 pg (27.0-31.0); Mean Corpuscular Volume 91.2 fL (80.0-94.0); Mean Platelet Volume 9.6 fL (7.4-10.4); Platelet Count 169 10^3/uL (130-400); Red Blood Cell Count 2.94 10^6/uL (4.70-6.10); Red Cell Dist. Width 12.7 % (11.5-14.5); White Blood Cell Count 8.1 10^3/uL (4.8-10.8)
[2025-02-23 04:01] LABS: Blood Urea Nitrogen 24 mg/dl (9-20); Calcium 8.3 mg/dl (8.4-10.2); Carbon Dioxide 28 mmol/L (22-30); Chloride 101 mmol/L (98-107); Estimated Creatinine Clearance 95 ml/min; Glucose 141 mg/dl (70-99); Magnesium 2.6 mg/dl (1.6-2.3); Potassium 4.3 mmol/L (3.5-5.1); Sodium 136 mmol/L (135-145); eGFR > 60.00
[2025-02-23] MEDS: TYLENOL 1000 MG PO (05:33)
--- NOTE | 2025-02-23 06:57 | W.PN.CT ---
Today's Communication / Plan
-
-pod #4
-no issues overnight
-had multiple BMs
-wants to go home
-ambulate
-likely d/c today
Assessment / Plan
-
Assessment:
-S/P Sternotomy/CABG x 4 (In situ MEDRANO to LAD, Ao to RSVG to diagonal, Ao to RSVG to OM1, Ao to RSVG to RPDA - this was taken off the proximal portion of the diagonal graft due to vein length)/R EVH/Left atrial appendage exclusion [35 mm device, SN
[id number]], by Dr. Salter, 02/19/25, pod#4
Assessment:
-Multivessel CAD
-NSTEMI (trop peaked @ 3.73)
-[place]
-LVEF 50-55%, improved to 60% postop per intraop BEVERLY
-Mild-moderate MR
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
-HTN
-HLD
-T2DM (on insulin, A1C 7.8)
-BPH (on finasteride at home)
-Anemia preop
-S/P inguinal herniorrhaphy
-Intraop and postop blood loss Anemia/preop anemia (transfused 1u PRBC intraop)
-Acute postop thrombocytopenia (stable without active bleed)
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
-Acute postop atelectasis
-Acute postop hypovolemia with subsequent hypervolemia
Discussed patient care with: Nursing and Care Team
Subjective
Procedure
S/P Sternotomy/CABG x 4 (In situ MEDRANO to LAD, Ao to RSVG to diagonal, Ao to RSVG to OM1, Ao to RSVG to RPDA - this was taken off the proximal portion of the diagonal graft due to vein length)/R EVH/Left atrial appendage exclusion [35 mm device, SN
[id number]], by Dr. Salter, 02/19/25
-
Date of Service: February 23, 2025
Objective Data
-
Lab Results
02/23/25 03:06
02/23/25 03:06
PT 16.6 Sec (11.4-14.6) H 02/19/25 16:53
INR 1.32 02/19/25 16:53
APTT 37.2 Sec (23.4-35.0) H 02/19/25 16:53
Vital Signs
Vital Signs
Temp Pulse Resp BP Pulse Ox
97.3 F 76 16 122/70 93
02/22/25 22:33 02/23/25 02:59 02/22/25 22:33 02/23/25 02:59 02/23/25 03:01
CT Intake/Output/Weight
02/22/25 02/22/25 02/23/25
06:59 18:59 06:59
Intake Total 420 / 528.6 500 / 500
Output Total 1000 / 2030 200 / 200
Balance -580 / -1501.4 300 / 300
SaO2: 93
Physical Exam
-
General: Awake and AOx3
Cardiovascular: Regular rate & rhythm, No Murmurs and No Rub
Respiratory: Clear and Decreased Breath Sounds
Sternum: Stable
Incision: Clean, Dry and Intact
Extremities: No Edema
Abdomen: soft, nontender, nondistended, + bowel sounds
Data Reviewed
-
Lab Results: Results Reviewed
Medications: Active Meds Reviewed
Chest X-Ray: Report Reviewed and Image Reviewed
ECG: Report Reviewed and Image Reviewed
[2025-02-23 07:58] LABS: Glucose - Point of Care 130 mg/dl (70-99)
[2025-02-23 08:00] VITALS: BP 122/70
[2025-02-23] MEDS: NOVOLOG FLEXPEN-MODERATE RESISTANCE SC ×2 (08:13→12:36)
--- NOTE | 2025-02-23 08:34 | PN.DE.MGMTRT ---
Insulin Management
- -
02/23/2025: Diabetes Management follow up
74 year old male with PMH HTN, HLD, T2DM on insulin, admitted on 02/16. Patient presented to ED for substernal chest pressure and SOB due to NSTEMI. He underwent left heart catheterization which revealed MV CAD. Patient is Occitan speaking and history
is obtained from his son who is at bedside. Son reports pts sugars have been higher and he has been trying to increase his physical activity.
Prior to admission was taking Metformin 850 mg BID, Glipizide 10mg twice daily, Toujeo 28 units @ HS and Ozempic 0.5mg SQ weekly. Use CGM Maximus 3, routinely follows up with PCP for diabetes care. A1C 7.8%, Cr 0.7, eGFR>60.
Patient awake, alert, oriented, sitting u in chair, offers no complaints, able to discuss diabetes plan of care via end touching machine operator # [id number] Ronnie Ford
POD # 4, s/p CABG x4. Transitioned off glycemic protocol 02/21. 02/22 Pre-meal range 163 to 181, HS 211, pt received Lantus 20 units, FBG 141 @3 AM, 130 POC.
Will make no changes to current regimen: Farxiga 10 mg daily, Lantus to 20 units, Glipizide to 10mg BID, Metformin 1000 mg BID and low corrective with meals.
Will cont to follow make further dose adjustments if necessary. Discussed with nurse.
Meds at discharge: Farxiga 10 mg daily, Toujeo 28 units, Glipizide 10mg BID and Metformin 1000 mg BID.
Instructed pt to discuss with PCP regarding continuation of Ozempic.
Diabetes History
- -
Type of Diabetes: 2 requiring insulin
Pre-Admission Diabetes Regimen
02/23/25
03:06
Creatinine 0.7
Lab Results
Hemoglobin A1c 7.8 % (4.0-5.6) H 02/16/25 16:30
Insulin Pump Settings
IP Diabetes Regimen
02/22/25 02/22/2525
12:01 16:31 22:14
Glucose
POC Glucose 163 H 181 H 211 H
02/23/25 02/23/25
03:06 07:57
Glucose 141 H
POC Glucose 130 H
Meal type: Dinner
Amount consumed: 100%
Patient Education
[2025-02-23] MEDS: LIDOCAINE 4% PATCH 1 PATCH TOPICAL (09:07)
[2025-02-23] MEDS: BACTROBAN 2% OINTMENT 1 APPLIC NASAL (09:07)
[2025-02-23] MEDS: RESTASIS 0.05% OPHTHALMIC EMULSION 1 DROPS BOTH EYES (09:08)
[2025-02-23] MEDS: TOPROL XL 12.5 MG PO (09:09)
[2025-02-23] MEDS: PLAVIX 75 MG PO (09:09)
[2025-02-23] MEDS: MAGNESIUM OXIDE 500 MG PO (09:10)
[2025-02-23] MEDS: LOW STRENGTH ASPIRIN 81 MG PO (09:10)
[2025-02-23] MEDS: FEOSOL 325 MG PO (09:10)
[2025-02-23] MEDS: PROTONIX 40 MG PO (09:10)
[2025-02-23] MEDS: PACERONE 200 MG PO (09:10)
[2025-02-23] MEDS: GLUCOTROL 10 MG PO (09:10)
[2025-02-23] MEDS: GLUCOPHAGE 1000 MG PO (09:11)
[2025-02-23] MEDS: PROSCAR 5 MG PO (09:11)
[2025-02-23] MEDS: FARXIGA 10 MG PO (09:11)
[2025-02-23] MEDS: NEURONTIN 100 MG PO (09:11)
[2025-02-23] MEDS: SENOKOT-S 1 TABLET PO (09:11)
[2025-02-23] MEDS: CYMBALTA DELAYED RELEASE 30 MG PO (09:11)
[2025-02-23] MEDS: ProAmatine PO (09:15)
--- NOTE | 2025-02-23 09:39 | W.DCSUMMARY ---
Discharge Summary
Discharge Data
Date of Admission: 02/16/25
Date of Discharge: 02/23/25
Total time spent discharging patient (in min): 35
-
Pending Results: No
Hospital Course
Primary care physician:
Dr. Gin Gordon
Outpatient financial director:
Dr. Gibson
Inpatient consultants:
DCA, hospice home care coordinator, Dm management
Procedures:
1. Coronary artery bypass grafting x 4 (In situ MEDRANO to LAD, Ao to RSVG to diagonal, Ao to RSVG to OM1, Ao to RSVG to RPDA - this was taken off the proximal portion of the diagonal graft due to vein length)
Primary Diagnosis:
1. Multivessel Coronary Artery Disease with NSTEMI
Secondary Diagnoses:
1. Hypertension
2. acute post-op hypotension
3. Hyperlipidemia
4. Insulin dependent diabetic
5. BPH
6. Mild to moderate MR
HPI: 74-year-old male Vietnamese speaking with multiple comorbidities who presented to the hospital with worsening chest pain after going for a run, he was found to have an NSTEMI and a chronic total occlusion of the proximal RCA with collaterals from
left to right. Given his disease pattern involving the proximal LAD and diabetic status, multidisciplinary team consensus was to pursue surgical revascularization. he went to the tOR with Dr. Salter on 02/19.
Hospital course: Mr. George was admitted on 02/16 with complaints of substernal chest pain and ruled in for an NSTEMI. Left heart cath revealed multivessel disease. Patient was subsequently taken to the OR by Dr. Salter on 02/19. Intraoperatively
patient was resistant to heparin and received Antithrombin III. He returned to the CVICU for the remainder of his recovery on Levophed, Precedex, and insulin. Patient initially had labile blood pressures and received fluid and had increased urine
output. On 02/20 postoperative day 1 patient was hypotensive and required oral midodrine and beta-blockers were held. Cross catheter was removed and left pleural chest tube was removed. Patient had low urine output throughout the day and was given
1 albumin. On 02/14 postoperative day 2, pacing wires were pulled and 1 hour later mediastinal chest tube was discontinued. Midodrine was continued. Patient was complaining of nausea and endorsed constipation. He was started on Reglan and an
aggressive bowel regimen. Patient was also transitioned off his insulin infusion and started on an oral regimen. On 02/22 postoperative day 3 patient was added on Farxiga Lantus was increased and glipizide was increased. Patient's right IJ Cordis
was discontinued and he was transferred to IVU. On 02/23 postoperative day 4 patient's midodrine was discontinued and he was given metoprolol 12.5 mg. 2 view chest x-ray remained stable. His insulin regimen was adjusted and he was instructed to
follow-up with his primary care doctor for his diabetes management.
Home medication changes:
see below
Discharge Plan
-
Patient Disposition: Home (Routine Discharge)
Discharge Diagnosis/Procedures: 02/19 CABG x 4, left atrial appendage clip
Condition: Good
Diet: Low Cholesterol, Low Sodium and Diabetic, Carb Controlled
Activity: No strenuous activity
Driving Restrictions: Not until seen by your Dr
Bathing Restrictions: OK to Shower
Other Services: Cardiac Rehab
Specialty Instructions: Weigh Daily- Call MD for wt gain/loss 3 lbs overnight/5 lbs in 1 week
Activity Restrictions/Additional Instructions:
ACTIVITY:
-No strenuous activity: no heavy lifting, pushing, pulling anything over 15 pounds for one month
-continue to use stairs as tolerated
DRIVING RESTRICTIONS:
-No driving for one month or until approved by your surgeon
WOUND CARE:
-Shower daily. Use soap & water.
-No lotions, creams or powders on incision area.
DIET:
-continue a low fat/low cholesterol diet.
-IF you are diabetic, continue carb controlled diet.
CARDIAC REHAB:
-Please make appointment to start in 5-6 weeks with your local hospital program. (See Cardiac Rehabilitation Discharge Booklet).
SPECIALTY INSTRUCTIONS:
-Weigh yourself daily. Call your physician for any weight gain/loss of 3 lbs overnight or 5 lbs in one week.
-REPORT any clicking noise or uneven appearance of your sternum to your surgeon immediately.
-If you smoke, you are instructed to quit. The [place] smoking hotline phone number is [phone]
Referrals:
CT Transitional Care Nurse [Outside]
(
The Cardiothoracic Transitional Care Nurse will call you to set up a visit in 1-2 days.)
[facility] [Outside] - 04/05/25 8:30 am
Evan Greenfield MD [Family Provider] - in one week
Thalia Mejia PA-C [Specified Professional Personl] - 04/02/25 12:40 pm
William Salter MD [Active] - 03/26/25 1:30 pm
Additional Discharge Medication Instructions: Please follow up with your primary care provider in one week for your diabetes management
Please check your blood pressure before taking your blood pressure medications. Do not take it if your systolic blood pressure is <100
Prescriptions:
New
acetaminophen 325 mg Tablet
650 mg PO Q4HPRN PRN (Reason: mild pain,headache,temp >101F ) Qty: 0 0RF
clopidogrel 75 mg Tablet
75 mg PO DAILY Qty: 30 3RF
metoprolol succinate 25 mg Tablet Extended Release 24 Hr
12.5 mg PO DAILY Qty: 30 0RF
aspirin 81 mg Tablet,Chewable
81 mg PO DAILY Qty: 0 0RF
gabapentin 100 mg Capsule
100 mg PO TID Qty: 30 0RF
oxycodone 5 mg Tablet
2.5 mg PO Q4HPRN PRN (Reason: moderate to severe pain) Qty: 10 0RF
pantoprazole 40 mg Tablet,Delayed Release (Dr/Ec)
40 mg PO DAILY Qty: 60 2RF
dapagliflozin propanediol 10 mg Tablet
10 mg PO DAILY Qty: 30 0RF
metformin 1,000 mg Tablet
1,000 mg PO BID@0800,1700 Qty: 30 1RF
Continued
magnesium oxide 400 mg (241.3 mg magnesium) tablet
400 mg PO DAILY
insulin glargine U-300 conc [Toujeo SoloStar U-300 Insulin] 300 unit/mL (1.5 mL) insulin pen
28 unit SC HS
finasteride 1 mg Tablet
1 mg PO DAILY
glipizide 10 mg tablet
10 mg PO BID Qty: 0 0RF
sennosides-docusate sodium [Senna Plus] 8.6-50 mg tablet
1 tab PO BID Qty: 0 0RF
ferrous sulfate 325 mg (65 mg iron) tablet,delayed release (DR/EC)
325 mg PO DAILY Qty: 0 0RF
cyclosporine [Restasis] 0.05 % dropperette
1 drp BOTH EYES BID Qty: 0 0RF
rosuvastatin 20 mg tablet
20 mg PO QPM Qty: 0 0RF
duloxetine 30 mg capsule,delayed release(DR/EC)
30 mg PO DAILY Qty: 0 0RF
icosapent ethyl [Vascepa] 1 gram capsule
1 g PO TID Qty: 0 0RF
Discontinued
lidocaine 4 % adhesive patch,medicated
1 patch TOPICAL DAILYPRN PRN (Reason: topical pain)
metformin 850 mg tablet
850 mg PO BID
famotidine 20 mg tablet
20 mg PO DAILY
omeprazole 20 mg capsule,delayed release(DR/EC)
20 mg PO DAILY
Ozempic 0.25 mg or 0.5 mg (2 mg/3 mL) pen injector
0.5 mg SC WEEKLY
Discharge Orders:
Discharge Patient (As Directed); Ordered 02/23/25
Ordered By: Abby Mills
Care Plan Goals
Care Plan Goals:
Problem: Readiness for enhanced knowledge related to diagnosis and treatment plan
Goal: Understand your diagnosis and treatment plan needs, including medications if applicable.
Instructions: Know your diagnosis, underlying causes and treatment plan options, including medications if applicable. Consult with your health care team to learn about your diagnosis and treatment plan, including medications if applicable.
Discharge Date and Time
Print Language: Vietnamese
--- NOTE | 2025-02-23 11:10 | CM ---
Reviewed chart. Mr. George was transferred to IVU. Met with Mr. and Mrs. George and his son to review discharge plans. Asked to check the cost of Farxiga and Jardiance. Telephone call to [facility]. to check on coverage for Jardiance and Farxiga. His
co-pay would be zero for Farxiga and zero for Jardiance. He ia agreeable to the co-pay. We reviewed a home visit by the Transitional Care Nurse. He is agreeable to a home visit. Prior to admission he resides with his spouse , son and
[id number]-aif dana two story home without any steps to enter. He has a full flight of steps to get to bedroom/full bathroom. He has a powder room on the first floor. Prior to admission he was independent with ambulation and adls. He does not have
any DME in the home. He has a prescription plan with [facility] and uses [facility]. His spouse will be home to assist in h is care if needed. Medical work-up in progress. The discharge plan is to return home with his family and a home visit
by the Transitional Care Nurse when medically stable.
--- NOTE | 2025-02-23 12:23 | PTCARENOTE ---
received this kind patient , this am. monitor shows NSR, VSS. patient is Greenlandic speaking and we use language line. sternum EMERGENCY MEDICAL TECHNICIAN, well approximated, ecchymotic at top on incision on right side, patient c/o pain, lidocaine patch applied as ordered. CT
sites covered with dsg,no drainage. right leg incisions EMERGENCY MEDICAL TECHNICIAN, ecchymotic. patient was bathed with CHG wipes.
--- NOTE | 2025-02-23 12:33 | PTCARENOTE ---
D/C instructions given to patient, and son, son able to speak [place]ome[place] and translated to parents,all verbalized understanding. INT D/C'd, telemetry D/C'd, personal belongings packed and sent home with patient. patient is eating his lunch,with
family at bedside.
--- NOTE | 2025-02-23 12:44 | PTCARENOTE ---
D/C to home via wc accompanied by staff.
== END 2025-02-23 13:46 | disposition home or self-care (01) | DRG 234 ==
LOC: IVU 15:08
PROVIDERS: Anesthesiology; Clinical Nurse Specialist Acute Care; Hospitalist; Internal Medicine; Nurse Practitioner Family; Physician Assistant; Physician Assistant Medical; Registered Nurse; ADMITTING PHYSICIAN Internal Medicine Interventional Cardiology; ATTENDING PHYSICIAN Thoracic Surgery (Cardiothoracic Vascular Surgery); CONSULT PHYSICIAN Internal Medicine Cardiovascular Disease; CONSULT PHYSICIAN Internal Medicine Critical Care Medicine; EMERGENCY PHYSICIAN Student in an Organized Health Care Education/Training Program; FAMILY PHYSICIAN Internal Medicine
PROC: B2111ZZ Fluoroscopy of Multiple Coronary Arteries using Low Osmolar Contrast (ICD-10-PCS; 2025-02-16)
PROC: 4A023N7 Measurement of Cardiac Sampling and Pressure, Left Heart, Percutaneous Approach (ICD-10-PCS; 2025-02-16)
PROC: B2151ZZ Fluoroscopy of Left Heart using Low Osmolar Contrast (ICD-10-PCS; 2025-02-16)
PROC: 30233N1 Transfusion of Nonautologous Red Blood Cells into Peripheral Vein, Percutaneous Approach (ICD-10-PCS; 2025-02-19)
PROC: 02L70CK Occlusion of Left Atrial Appendage with Extraluminal Device, Open Approach (ICD-10-PCS; 2025-02-19)
PROC: B24BZZ4 Ultrasonography of Heart with Aorta, Transesophageal (ICD-10-PCS; 2025-02-19)
PROC: 021209W Bypass Coronary Artery, Three Arteries from Aorta with Autologous Venous Tissue, Open Approach (ICD-10-PCS; 2025-02-19)
PROC: 5A1221Z Performance of Cardiac Output, Continuous (ICD-10-PCS; 2025-02-19)
PROC: 06BP4ZZ Excision of Right Saphenous Vein, Percutaneous Endoscopic Approach (ICD-10-PCS; 2025-02-19)
PROC: 02100Z9 Bypass Coronary Artery, One Artery from Left Internal Mammary, Open Approach (ICD-10-PCS; 2025-02-19)
DX: I21.4 Non-ST elevation (NSTEMI) myocardial infarction (principal); D62 Acute posthemorrhagic anemia; J98.11 Atelectasis; D68.59 Other primary thrombophilia; I25.10 Atherosclerotic heart disease of native coronary artery without angina pectoris; I10 Essential (primary) hypertension; E78.00 Pure hypercholesterolemia, unspecified; K21.9 Gastro-esophageal reflux disease without esophagitis; D50.9 Iron deficiency anemia, unspecified; F32.A Depression, unspecified; E11.65 Type 2 diabetes mellitus with hyperglycemia; N40.0 Benign prostatic hyperplasia without lower urinary tract symptoms; K59.00 Constipation, unspecified; I34.0 Nonrheumatic mitral (valve) insufficiency; D69.59 Other secondary thrombocytopenia; E86.1 Hypovolemia; E87.70 Fluid overload, unspecified; I95.81 Postprocedural hypotension; Z79.4 Long term (current) use of insulin; Z79.899 Other long term (current) drug therapy
CPT/HCPCS: 71045; 71046; 71250; 80048; 80053; 80061; 81003; 81015; 82248; 82330; 82565; 82805; 82810; 82947; 82962; 83036; 83735; 84132; 84302; 84484; 84520; 85014; 85018; 85025; 85027; 85049; 85610; 85730; 86850; 86900; 86901; 86920; 93005; 93306; 93312; 93320; 93325; 93458; 93880; 94002; 96365; 99152; 99153; 99291; C1894; J7197; P9016; P9045; Q9950; Q9967

== ENCOUNTER 2025-04-17 08:44 | Outpatient (RCR) | payer MEDICARE, SELFPAY ==
[2025-04-05 09:09] LABS: Glucose - Point of Care 175 mg/dl (70-99)
[2025-04-05 09:46] LABS: Glucose - Point of Care 145 mg/dl (70-99)
[2025-04-10 08:36] LABS: Glucose - Point of Care 163 mg/dl (70-99)
[2025-04-10 09:15] LABS: Glucose - Point of Care 123 mg/dl (70-99)
[2025-04-17 08:34] LABS: Glucose - Point of Care 192 mg/dl (70-99)
[2025-04-17 09:17] LABS: Glucose - Point of Care 149 mg/dl (70-99)
== END 2025-04-17 23:59 | disposition home or self-care (01) ==
LOC: CRHB 08:44
PROVIDERS: ATTENDING PHYSICIAN Internal Medicine Interventional Cardiology; FAMILY PHYSICIAN Internal Medicine
DX: I25.10 Atherosclerotic heart disease of native coronary artery without angina pectoris (principal); Z95.1 Presence of aortocoronary bypass graft
CPT/HCPCS: 82962; 93798

== ENCOUNTER 2025-05-03 11:46 | Emergency (ER) | payer MEDICARE, SELFPAY ==
[2025-05-03 11:50] VITALS: BP 132/77
--- NOTE | 2025-05-03 12:49 | ED.GENMED ---
History of Present Illness
General
Chief Complaint: Nasal Problem
Source: family
Time Seen by Provider: 05/03/25 12:26
Nursing documentation reviewed up to this point in time: agreed with
History of Present Illness
History of Present Illness:
Patient is a 74-year-old male with past medical history of hypertension hyperlipidemia diabetes presents to the ER for evaluation. Son at bedside reports patient was admitted to [facility] April 18 after fall and had multiple facial
fractures. At that time he had a Rhino Rocket in place and the supposed to schedule with plastic surgery and ENT. Son was not home at the time and did not get discharge instructions until recently from another family member. He brought patient
here today because he was concerned that patient still had packing in his nose. He does however believe that packing was removed prior to leaving the hospital. Son reports pt is eating /drinking well. Son reports pt does c/o of some numbness to
right facial region ever since trauma. Patient has not had any fevers. Eating and drinking well.
Son has discharge summary picture on his phone which states that patient that the patient has a depressed comminuted fracture of the right zygomatic arch, inferior right orbital wall fracture, fracture of the lateral wall of the right maxillary
sinus.
Review of Systems
Review of Systems
Allergies reviewed?: Yes
Other source history: family
All Other Systems: ROS reviewed and negative except as documented in HPI and ROS
Constitutional: Denies fever
Phy Exam
General Physical Exam
General Presentation: no apparent distress
General age: appears stated age
General Skin: warm and dry
General Habitus: normal
General Mental: alert
General Hydration: appears well hydrated
ENT Exam
ENT Exam: other (dried blood in right nares; no obvious swelling to face no difficulty breathing. NO packing in place )
Neurological Exam
Neurological Exam: alert and oriented x3
Musculoskeletal Exam
Musculoskeletal Exam: full ROM
Skin Exam
Skin Exam: normal color and warm/dry
Psychiatric Exam
Psychiatric Exam: normal mood/affect
Course
Vital Signs
Initial and Last Documented VS:
Initial Vital Signs
Temp Pulse Resp BP Pulse Ox
97.6 F 79 20 132/77 99
05/03/25 11:50 05/03/25 11:50 05/03/25 11:50 05/03/25 11:50 05/03/25 11:50
Last Documented Vital Signs
Temp Pulse Resp BP Pulse Ox
97.6 F 79 20 132/77 99
05/03/25 11:50 05/03/25 11:50 05/03/25 11:50 05/03/25 11:50 05/03/25 12:51
MDM/Problems Addressed
MDM/Problems Addressed:
As documented patient is a 74-year-old female who was hospitalized at [facility] April 18 for multiple facial fractures. He had Rhino Rocket at that time and son believes it was removed but brought her to this hospital to ensure that packing
was indeed removed. Son reports he did not follow-up with any specialist including ENT or plastics yet.
On exam patient is no acute distress he has dried blood to his right nares however there is no packing in place. He has been eating and drinking well. No complaints of headache.
Nothing further to do here in the ER. I did however discuss with son that is very important he does follow-up as recommended with ENT as well as plastics and other physicians. there
Chronic conditions affecting care:
Recently hospitalized for facial fractures in March at [facility] will need outpatient follow-up
*Pulse Oximetry
SaO2: 99
Oxygen Mode of Delivery: Room air
Patient hypoxic: no
*Critical Care Note
Total Time (30-74mins, 75-104mins- exclusive of procedures): Not Applicable
ED Attending Note
-
Portions of this chart may have been created with voice recognition software.� Occasional wrong word or��sound alike� substitutions may have occurred due to the inherent limitations of voice recognition software.
Discharge Plan
Departure
Patient Disposition: Home (Routine Discharge)
Date of Disposition: 05/03/25
Time of Disposition: 13:01
Patient with high blood pressure during this ER visit?: No
Condition: Fair
Covid-19: Not Applicable
Discharge Problem:
Medical evaluation
Instructions: BLOOD PRESSURE
Prescriptions:
No Action
magnesium oxide 400 mg (241.3 mg magnesium) tablet
400 mg PO DAILY
insulin glargine U-300 conc [Toujeo SoloStar U-300 Insulin] 300 unit/mL (1.5 mL) insulin pen
28 unit SC HS
finasteride 1 mg Tablet
1 mg PO DAILY
acetaminophen 325 mg Tablet
650 mg PO Q4HPRN PRN (Reason: mild pain,headache,temp >101F ) Qty: 0 0RF
glipizide 10 mg tablet
10 mg PO BID Qty: 0 0RF
sennosides-docusate sodium [Senna Plus] 8.6-50 mg tablet
1 tab PO BID Qty: 0 0RF
ferrous sulfate 325 mg (65 mg iron) tablet,delayed release (DR/EC)
325 mg PO DAILY Qty: 0 0RF
cyclosporine [Restasis] 0.05 % dropperette
1 drp BOTH EYES BID Qty: 0 0RF
rosuvastatin 20 mg tablet
20 mg PO QPM Qty: 0 0RF
duloxetine 30 mg capsule,delayed release(DR/EC)
30 mg PO DAILY Qty: 0 0RF
icosapent ethyl [Vascepa] 1 gram capsule
1 g PO TID Qty: 0 0RF
clopidogrel 75 mg Tablet
75 mg PO DAILY Qty: 30 3RF
metoprolol succinate 25 mg Tablet Extended Release 24 Hr
12.5 mg PO DAILY Qty: 30 0RF
aspirin 81 mg Tablet,Chewable
81 mg PO DAILY Qty: 0 0RF
gabapentin 100 mg Capsule
100 mg PO TID Qty: 30 0RF
oxycodone 5 mg Tablet
2.5 mg PO Q4HPRN PRN (Reason: moderate to severe pain) Qty: 10 0RF
pantoprazole 40 mg Tablet,Delayed Release (Dr/Ec)
40 mg PO DAILY Qty: 60 2RF
dapagliflozin propanediol 10 mg Tablet
10 mg PO DAILY Qty: 30 0RF
metformin 1,000 mg Tablet
1,000 mg PO BID@0800,1700 Qty: 30 1RF
Referrals:
Evan Greenfield MD [Family Provider, Internal Medicine]
Activity Restrictions/Additional Instructions:
There is no packing in place. Patient will need to follow-up with outpatient ENT and plastic surgery along with other recommended specialist as previously recommended.
Return if any worsening of symptoms.
Interventions
Interventions:
*Risk Screen - Suicide Last Done: 05/03/25 11:50
*General Assessment Last Done: 05/03/25 13:09
*Neglect/Abuse Screening Last Done: 05/03/25 11:50
*ED- Fall Risk Assessment Last Done: 05/03/25 13:09
*ED COVID-19 Vaccine History Last Done: 05/03/25 13:09
*Nursing Disposition Last Done: 05/03/25 13:09
ED-EENT Assessment Last Done: 05/03/25 13:09
Discharge Date and Time
Discharge Date/Time: 05/03/25 13:10
Print Language: Bulgarian
== END 2025-05-03 13:10 | disposition home or self-care (01) ==
LOC: EMR 11:46
PROVIDERS: EMERGENCY PHYSICIAN Student in an Organized Health Care Education/Training Program; FAMILY PHYSICIAN Internal Medicine
DX: Z04.89 Encounter for examination and observation for other specified reasons (principal); I10 Essential (primary) hypertension; E78.00 Pure hypercholesterolemia, unspecified; E11.9 Type 2 diabetes mellitus without complications
CPT/HCPCS: 99282

== ENCOUNTER 2025-05-22 08:31 | Outpatient (RCR) | payer MEDICARE, SELFPAY ==
[2025-05-22 08:36] LABS: Glucose - Point of Care 256 mg/dl (70-99)
[2025-05-22 09:24] LABS: Glucose - Point of Care 231 mg/dl (70-99)
== END 2025-05-22 23:59 | disposition home or self-care (01) ==
LOC: CRHB 08:31
PROVIDERS: ATTENDING PHYSICIAN Internal Medicine Interventional Cardiology; FAMILY PHYSICIAN Internal Medicine
DX: I25.10 Atherosclerotic heart disease of native coronary artery without angina pectoris (principal); Z95.1 Presence of aortocoronary bypass graft
CPT/HCPCS: 82962; 93798

== ENCOUNTER 2025-06-21 08:41 | Outpatient (RCR) | payer MEDICARE, SELFPAY ==
[2025-05-29 08:45] LABS: Glucose - Point of Care 216 mg/dl (70-99)
[2025-05-29 09:32] LABS: Glucose - Point of Care 174 mg/dl (70-99)
[2025-05-31 08:41] LABS: Glucose - Point of Care 177 mg/dl (70-99)
[2025-05-31 09:30] LABS: Glucose - Point of Care 157 mg/dl (70-99)
[2025-06-14 08:34] LABS: Glucose - Point of Care 180 mg/dl (70-99)
[2025-06-14 09:24] LABS: Glucose - Point of Care 163 mg/dl (70-99)
[2025-06-21 08:36] LABS: Glucose - Point of Care 211 mg/dl (70-99)
[2025-06-21 09:27] LABS: Glucose - Point of Care 159 mg/dl (70-99)
== END 2025-06-21 23:59 | disposition home or self-care (01) ==
LOC: CRHB 08:41
PROVIDERS: ATTENDING PHYSICIAN Internal Medicine Interventional Cardiology; FAMILY PHYSICIAN Internal Medicine
DX: I25.10 Atherosclerotic heart disease of native coronary artery without angina pectoris (principal); Z95.1 Presence of aortocoronary bypass graft
CPT/HCPCS: 82962; 93798

== ENCOUNTER 2025-07-23 16:20 | Outpatient (RCR) | payer MEDICARE, SELFPAY ==
[2025-06-28 08:36] LABS: Glucose - Point of Care 180 mg/dl (70-99)
[2025-07-05 08:34] LABS: Glucose - Point of Care 162 mg/dl (70-99)
[2025-07-05 09:25] LABS: Glucose - Point of Care 140 mg/dl (70-99)
[2025-07-09 16:03] LABS: Glucose - Point of Care 214 mg/dl (70-99)
[2025-07-09 17:01] LABS: Glucose - Point of Care 163 mg/dl (70-99)
[2025-07-16 15:57] LABS: Glucose - Point of Care 381 mg/dl (70-99)
[2025-07-23 16:06] LABS: Glucose - Point of Care 281 mg/dl (70-99)
[2025-07-23 17:02] LABS: Glucose - Point of Care 179 mg/dl (70-99)
== END 2025-07-23 23:59 | disposition home or self-care (01) ==
LOC: CRHB 16:20
PROVIDERS: ATTENDING PHYSICIAN Internal Medicine Interventional Cardiology; FAMILY PHYSICIAN Internal Medicine
DX: I25.10 Atherosclerotic heart disease of native coronary artery without angina pectoris (principal); Z95.1 Presence of aortocoronary bypass graft
CPT/HCPCS: 82962; 93798; G0422

== ENCOUNTER 2025-08-06 16:17 | Outpatient (RCR) | payer MEDICARE, SELFPAY ==
[2025-07-27 15:48] LABS: Glucose - Point of Care 214 mg/dl (70-99)
[2025-07-27 16:41] LABS: Glucose - Point of Care 184 mg/dl (70-99)
[2025-07-30 15:49] LABS: Glucose - Point of Care 313 mg/dl (70-99)
[2025-08-03 15:51] LABS: Glucose - Point of Care 211 mg/dl (70-99)
[2025-08-03 16:42] LABS: Glucose - Point of Care 175 mg/dl (70-99)
[2025-08-06 15:49] LABS: Glucose - Point of Care 219 mg/dl (70-99)
[2025-08-06 16:43] LABS: Glucose - Point of Care 163 mg/dl (70-99)
== END 2025-08-06 23:59 | disposition home or self-care (01) ==
LOC: CRHB 16:17
PROVIDERS: ATTENDING PHYSICIAN Internal Medicine Interventional Cardiology; FAMILY PHYSICIAN Internal Medicine
DX: I25.10 Atherosclerotic heart disease of native coronary artery without angina pectoris (principal); Z95.1 Presence of aortocoronary bypass graft
CPT/HCPCS: 82962; 93798